=== PATIENT | male | born 1960 | race Caucasian/White ===

== ENCOUNTER 2021-03-15 09:38 | Inpatient (IN) | payer MEDICAID, SELFPAY ==
[2021-03-15] VITALS (9 sets, daily range): BP systolic 96–135; BP diastolic 55–80; PULSE 82–99; RESP 14–18; TEMP 36.3–37.3; O2SAT 95–100; BMI 27.3
--- NOTE | ~2021-03-15 | CT_ITS ---
EXAMINATION: CT ABDOMEN AND PELVIS WITH CONTRAST CLINICAL INFORMATION: Diffuse abdominal tenderness. AMS. COMPARISON: None TECHNIQUE: Multidetector volumetric images were obtained from the superior aspect of the liver through the pubic symphysis following administration 85 mL of Omnipaque 350 intravenous contrast. Sagittal and coronal reformatted images were obtained on the technologist's workstation. Oral contrast: No. This CT examination was performed using dose optimization techniques as appropriate, variously including the following: *Automated exposure control *Adjustment of mA and/or kV according to patient size (this includes techniques or standardized protocols for targeted exams where dose is matched to indication/reason for exam; i.e. extremities or head) *Use of iterative reconstruction technique DLP: 624 mGy-cm FINDINGS: LUNG BASES: There is mild ground-glass haziness seen in both lung bases. The heart size is normal. No consolidation seen. LIVER, GALLBLADDER, AND BILIARY TREE: The liver is normal in size, shape, and attenuation. No focal hepatic lesion or biliary ductal dilatation is present. The gallbladder is unremarkable with no evidence of radiopaque gallstones, gallbladder wall thickening, or obvious pericholecystic inflammatory changes. PANCREAS: The pancreas is homogeneous in density without focal lesion. The peripancreatic fat planes are preserved. SPLEEN: Unremarkable. ADRENAL GLANDS: Unremarkable. KIDNEYS AND URETERS: The kidneys are normal in size, shape, and attenuation. No hydronephrosis, hydroureter, or calculi seen. No perinephric stranding. There are bilateral nonenhancing hypodense lesions in the upper poles of both kidneys, likely small cysts. BLADDER: Unremarkable. GASTROINTESTINAL TRACT: There is scattered stool and gas seen throughout the colon without any significant distention. The small bowel loops are normal caliber. The stomach is nondistended and appears unremarkable. ABDOMINAL WALL: No significant hernia is appreciated. LYMPH NODES: Normal. VASCULAR: Unremarkable. PELVIC VISCERA: Unremarkable. OSSEOUS STRUCTURES: No lytic or sclerotic process seen. There is mild ventral spondylosis throughout the lumbar spine. No lytic process. CT/CT abdomen pelvis w con IMPRESSION: No acute intra-abdominal process seen. Bilateral renal cysts
--- NOTE | ~2021-03-15 | CT_ITS ---
PROCEDURE: CT GUIDED ASPIRATION, FINE NEEDLE, WITH IMAGE GUIDANCE CLINICAL INFORMATION: Cellular bone marrow disease. COMPARISON: None TECHNIQUE: Following explaining CT fluoroscopy-guided iliac crest bone marrow biopsy procedure, benefits and risk, a written consent was obtained. Patient was placed prone on fluoroscopy table and preliminary imaging was obtained through the pelvis. Marker was placed along the posterior skin and optimal site was selected following repeat imaging. The marked site was cleaned and draped in usual sterile manner. 1% lidocaine was injected puncture site. Through a small skin incision a 14 Uzbek needle was advanced from the skin incision to the posterior margin of posterior iliac spine. The needle was then attached to bag of her drill and the needle was drilled into the iliac bone marrow. 2 bone aspirations are performed with the DTPA and heparin separately. Subsequently a bone cutting needle was advanced coaxially and small bone marrow sample was collected and sent to lab. Post biopsy the stylet was reintroduced and the needle removed following reversing the drill. Complete hemostasis achieved at puncture site. Sterile dressing applied postprocedure. Patient tolerated procedure extremely well. Conscious sedation and patient monitoring was performed during the exam for 16 minutes of sedation time. This CT examination was performed using dose optimization techniques as appropriate, variously including the following: *Automated exposure control *Adjustment of mA and/or kV according to patient size (this includes techniques or standardized protocols for targeted exams where dose is matched to indication/reason for exam; i.e. extremities or head) *Use of iterative reconstruction technique DLP: 269 mGy-cm FINDINGS: On posterior pelvic imaging there is normal symmetric iliac crest bone marrow, sacrum and the paraspinal soft tissues. No abnormality seen in the pelvis. CT fluoroscopy-guided left posterior iliac crest biopsy performed. Initially bone marrow aspiration performed with EDTA and heparin within this syringes. CT/CT guided asp bone marrow IMPRESSION: Successful CT fluoroscopy-guided left posterior iliac crest aspiration x 2 and core biopsy x 1 performed.
--- NOTE | ~2021-03-15 | XR_ITS ---
EXAMINATION: XR CHEST CLINICAL INFORMATION: Altered mental status COMPARISON: Chest radiographs 08/15/2015 TECHNIQUE: Upright AP view of the chest was obtained. FINDINGS: The lungs are clear and there is no airspace consolidation or definite groundglass opacity. The costophrenic sulci are well-defined. The heart is normal in size. The hilar and mediastinal contours and visualized bony structures are unremarkable. XR/XR chest 1V IMPRESSION: Unremarkable examination.
--- NOTE | ~2021-03-15 | NM_ITS ---
EXAMINATION: PULMONARY PERFUSION STUDY CLINICAL INFORMATION: Elevated d-dimer. COMPARISON: No previous lung scan is available for comparison. A radiograph of the chest dated 03/15/2021 is the most recent radiograph available for comparison. TECHNIQUE: Following the intravenous injection of 3.0 mCi Tc-99m MAA, an 8-view perfusion study was performed using a gamma scintillation camera. FINDINGS: No segmental perfusion defects are present. There is minimally heterogeneous distribution of activity bilaterally. There are no focal anatomic appearing perfusion defects present. NM/NM pul perfusion IMPRESSION: Very low probability of pulmonary embolism.
--- NOTE | ~2021-03-15 | FL_ITS ---
EXAMINATION: XR LUMBAR PUNCTURE CLINICAL INFORMATION: Mental status change. COMPARISON: None. TECHNIQUE/FINDINGS: Procedure and risks and benefits including bleeding, infection and headache were discussed with the patient through an bag patcher and informed consent was obtained. The patient was positioned in the prone position. The back was prepped and draped in the usual sterile fashion. Using fluoroscopic guidance and a 22-gauge spinal needle, right interlaminar access to the CSF fluid at the L2-L3 level was obtained. Opening pressure was 13 cm of water. 7.5 mL of clear serous fluid was removed. Diagnostic specimen was sent as requested by the ordering physician. FLUOROSCOPY TIME: 0.2 minutes. DOSE AREA PRODUCT: 3 Gy-cm2. IMAGES: 1 saved fluoroscopic image. FL/FL guided lumbar puncture LP IMPRESSION: Fluoroscopy-guided lumbar puncture.
--- NOTE | ~2021-03-15 | CT_ITS ---
EXAMINATION: CT HEAD WITHOUT CONTRAST CLINICAL INFORMATION: Altered mental status COMPARISON: None TECHNIQUE: Contiguous axial imaging was performed from the skull base to vertex without intravenous administration of contrast. This CT examination was performed using dose optimization techniques as appropriate, variously including the following: *Automated exposure control *Adjustment of mA and/or kV according to patient size (this includes techniques or standardized protocols for targeted exams where dose is matched to indication/reason for exam; i.e. extremities or head) *Use of iterative reconstruction technique DLP: 607 mGy-cm FINDINGS: There is no evidence of acute intracranial hemorrhage or territorial infarction. No abnormal mass effect or midline shift is seen. Hyde to white matter differentiation is well preserved. No extra-axial fluid collections are identified. The ventricles are normal in size. There is no abnormal attenuation within the brain parenchyma. The osseous structures and soft tissues are normal. The mastoid air cells and visualized portions of the paranasal sinuses are well aerated. CT/CT head/brain wo con IMPRESSION: No acute intracranial process seen.
--- NOTE | 2021-03-15 10:25 | ECG_ITS ---
Test Reason : ALTER MENTAL Blood Pressure : / mmHG Vent. Rate : 097 BPM Atrial Rate : 097 BPM P-R Int : 142 ms QRS Dur : 096 ms QT Int : 374 ms P-R-T Axes : 039 020 024 degrees QTc Int : 474 ms Normal sinus rhythm Normal ECG No significant changes when compared with the previous EKG of 17 jan 2020 Referred By: Idalmis Curiel Electronically Signed By:YVONNE MCLAUGHLIN
--- NOTE | 2021-03-15 10:48 | ED_ITS ---
HPI - Altered Mental Status General Chief Complaint: Altered Mental Status Stated Complaint: AMS FROM MD OFFICE Time Seen by Provider: 03/15/21 10:06 Source: patient, family and EMS Mode of arrival: EMS History of Present Illness HPI narrative: 60-year-old male with a past medical history of diabetes, substance abuse, hyperkalemia, BIBA for reported increased confusion/AMS over the past 1-2 weeks, & urinary and fecal incontinence [employer] at follow-up doctor's appointment. History obtained from a friend who reports patient was recently admitted to [facility] 2 weeks ago for similar symptoms after having about 20 falls at home. Patient unable to provide history due to acute AMS MD complaint: altered mental status Onset (ago): week(s) Related Data Home Medications Medication Instructions Recorded Confirmed amitriptyline 100 mg PO BEDTIME 03/15/21 03/15/21 amlodipine 10 mg PO DAILY 03/15/21 03/15/21 carvedilol 6.25 mg PO BID 03/15/21 03/15/21 clonazepam 1 mg PO TID 03/15/21 03/15/21 fluoxetine 20 mg PO DAILY 03/15/21 03/15/21 naproxen 500 mg PO BIDPC 03/15/21 03/15/21 omeprazole 40 mg PO BID 03/15/21 03/15/21 quetiapine 300 mg PO BEDTIME 03/15/21 03/15/21 Allergies Allergy/AdvReac Type Severity Reaction Status Date / Time fish derived [FISH] Allergy Unknown UNKNOWN Unverified 08/18/20 18:30 turkey [TURKEY] Allergy Unknown UNK Unverified 08/18/20 18:30 Review of Systems Review of Systems: : + urinary incontinence/ fecal incontinence Neuro: +AMS/confusion ROS limited secondary to patient's acute mental status Yes all other systems are reviewed and are negative PMFSH Past Medical History Attestation statement: The following information was validated with the patient. Medical History (Updated 03/15/21 @ 17:26 by [facility] Olvera) Diabetes Hyperkalemia Substance abuse Social History Social History Advance Directives: No Advance Directives Information Provided: No Physical Exam Vital Signs: Vital Signs: Last Vital Signs Temp 99.1 F 03/15/21 09:55 Pulse 98 03/15/21 16:00 Resp 18 03/15/21 16:00 BP 134/78 03/15/21 16:00 Pulse Ox 96 03/15/21 16:00 Body Mass Index 27.3 Const: General: alert and awake Orientation/consciousness: oriented to person Limitations: no limitations HENMT: Head: Yes normal to inspection Ears: hearing grossly normal bilaterally General nose exam: Normal external nose present Face and sinus: Yes normal facial exam Eyes: Other: R pupil abnl General: appearance normal, both eyes and all related structures Pupils: Equal, round and reactive pupils present EOM: EOMs intact bilaterally Neck: Neck: Yes normal visual inspection and Yes no meningeal signs Resp: Effort & Inspection: normal respiratory effort Auscultation: clear to auscultation bilaterally Cardio: Rate: regular rate Heart sounds: S1 normal heart sound present and S2 normal heart sound present GI: Inspection: Yes normal to inspection Palpation (GI): Soft to palpation, Tenderness to palpation present (GI) (diffusely), no guarding and not rigid Skin: Rashes: no rashes Wounds: no wounds Neuro: Other: Confused, intermittently following commands, staring off into space, A&O x1, no signs of trauma General: oriented to person, tone normal, moves all extremities and no meningeal signs Cranial nerves: Yes Equal, round and reactive pupils present Gait exam (Neuro): Normal gait present Motor exam (neuro): Pronator motor function not present Extrem: General: Yes normal to inspection Course Course Course Narrative: *Records obtained from [facility] patient with history of po lysubstance abuse, schizophrenia, DM, was initially seen for altered mental status had multiple electrolyte abnormalities, ultimately diagnosed with HHS which was likely etiology of delirium, COLLETTE, type 2 diabetes, & transaminitis. He was evaluated by Psychiatry and deemed unable to understand his underlying conditions due to very limited IQ although was alert and oriented x3 on formal assessment. CM set up VNA services with follow-up PCP appointment which was today. XR chest 1V IMPRESSION: Unremarkable examination CT head/brain wo con IMPRESSION: No acute intracranial process seen -no leukocytosis, H&H 9.4/27.8 (10.0/27.8) on 03/13/2021, potassium 2.9 >> p.o. and IV repletion ordered -AST/ALT elevated (however improved from 03/12 labs at [facility] which was AST 76/ALT 96), initial troponin elevated at 19.8 >> 3 hour repeat ordered -UA neg tox +THC *Per nursing staff who spoke to [facility] staff member, patient called [facility] this morning and reported he took multiple medications in potential ?OD > case discussed with Dr. Baker, will obtain CT abdomen pelvis, gave intranasal Narcan without any effect. -CT without acute intra abdominal process. -1700--case discussed with IR for LP to rule out meningitis/encephalitis, patient will obtain a LP tonight. Patient admitted to hospitalist for further management. Crisis Consult added MDM - Altered Mental Status MDM Narrative Medical decision making narrative: 60-year-old male with a past medical history of diabetes, substance abuse, hyperkalemia, BIBA for reported increased confusion/AMS over the past 1-2 weeks, & urinary and fecal incontinence [employer] at follow-up doctor's appointment. On exam VSS, NAD, A&O x1, acutely confused/altered unable to provide history vs ?psychotic. Concern for encephalopathy vs substance abuse vs metabolic/infectious etiology vs psychosis. Lower concern for meningitis/ICH or CVA with subacute history Records requested from [facility] Plan: EKG, labs, UA, CXR, head CT, IVF, reassess Medical Records Attestation: I reviewed the patient's medical records. Lab Data Attestation: I reviewed the patient's lab results. Result diagrams: 03/15/21 12:50 03/15/21 12:50 Labs: Lab Results 03/15/21 03/15/21 03/15/21 Range/Units 12:50 12:50 12:50 WBC (4.8-10.8) X10*3/uL RBC (4.60-5.80) X10*6/uL Hgb (14.0-18.0) g/dl Hct (42-52) % MCV (80-98) fL MCH (27.0-33.0) pg MCHC (31.0-36.0) g/dl RDW (11.0-16.0) % Plt Count (160-400) X10*3/uL MPV (9.4-12.4) fL Immature Gran % (Auto) (0.0-0.4) % Neut % (Auto) (45-73) % Lymph % (Auto) (20-40) % Winn % (Auto) (2-11) % Eos % (Auto) (0-4) % Baso % (Auto) (0-2) % Lymph # (Auto) (1.2-4.9) X10*3/uL Winn # (Auto) (0.1-1.2) X10*3/uL Eos # (Auto) (0.0-0.4) X10*3/uL Baso # (Auto) (0.0-0.2) X10*3/uL Abs Immat Gran (auto) (0.00-0.03) X10*3/uL Absolute Neuts (auto) (2.0-8.3) X10*3/uL Absolute Nucleated RBC (0.0-0.012) X10*3/uL Nucleated RBC % (auto) (0.0-0.2) /100WBC PT (10.8-13.0) SEC INR (0.9-1.1) APTT (24.1-38.0) SEC Sodium (135-145) mmol/L Potassium (3.3-5.1) mmol/L Chloride (96-108) mmol/L Carbon Dioxide (22-29) mmol/L Anion Gap (12-20) BUN (9-16) mg/dL Creatinine (0.5-1.4) mg/dL Estim Creat Clear Calc Estimated GFR Random Glucose (60-115) mg/dL Lactic Acid (0.5-2.0) mmol/L Calcium (8.4-10.2) mg/dL Magnesium (1.6-2.6) mg/dL Total Bilirubin (0.0-1.0) mg/dL Direct Bilirubin (0.0-0.5) mg/dL AST (5-37) U/L ALT (0-40) U/L Alkaline Phosphatase (39-117) U/L Ammonia 36 (13-55) umol/L Troponin I High Sens (<3.5-35.0) ng/L B-Natriuretic Peptide (<100) pg/mL Total Protein (6.5-8.0) g/dL Albumin (3.5-5.0) g/dL Lipase (8-78) U/L Urine Color Urine Appearance Urine pH (5.0-8.0) Ur Specific Hettinger (1.005-1.025) Urine Protein (NEG-TRACE) MG/DL Urine Glucose (UA) (NEG) MG/DL Urine Ketones (NEG) MG/DL Urine Blood (NEG) Urine Nitrite (NEG) Ur Leukocyte Esterase (NEG) Urine RBC (0) /HPF Urine WBC (0-4) /HPF Ur Squamous Epith Cells /LPF Ur Renal Epithelial Cell /LPF Urine Bacteria /LPF Urine Mucus /LPF Salicylates < 5.0 L (15-30) mg/dL Urine Opiates Screen (Not Detect) Acetaminophen < 1 (<30) mcg/mL Ur Barbiturates Screen (Not Detect) Ur Phencyclidine Scrn (Not Detect) Ur Amphetamines Screen (Not Detect) U Benzodiazepines Scrn (Not Detect) Urine Cocaine Screen (Not Detect) U Marijuana (THC) Screen (Not Detect) Ethyl Alcohol mg/dL COVID-19 (ZA) Negative (Negative) COVID-19 Clin Com See Note 03/15/21 03/15/21 03/15/21 Range/Units 12:50 12:50 12:50 WBC 10.6 (4.8-10.8) X10*3/uL RBC 2.88 L (4.60-5.80) X10*6/uL Hgb 9.4 L (14.0-18.0) g/dl Hct 27.8 L (42-52) % MCV 96.5 (80-98) fL MCH 32.6 (27.0-33.0) pg MCHC 33.8 (31.0-36.0) g/dl RDW 13.6 (11.0-16.0) % Plt Count 351 (160-400) X10*3/uL MPV 8.8 L (9.4-12.4) fL Immature Gran % (Auto) 1.8 H (0.0-0.4) % Neut % (Auto) 71.2 (45-73) % Lymph % (Auto) 17.2 L (20-40) % Winn % (Auto) 8.7 (2-11) % Eos % (Auto) 0.7 (0-4) % Baso % (Auto) 0.4 (0-2) % Lymph # (Auto) 1.8 (1.2-4.9) X10*3/uL Winn # (Auto) 0.9 (0.1-1.2) X10*3/uL Eos # (Auto) 0.1 (0.0-0.4) X10*3/uL Baso # (Auto) 0.0 (0.0-0.2) X10*3/uL Abs Immat Gran (auto) 0.19 H (0.00-0.03) X10*3/uL Absolute Neuts (auto) 7.6 (2.0-8.3) X10*3/uL Absolute Nucleated RBC 0.000 (0.0-0.012) X10*3/uL Nucleated RBC % (auto) 0.0 (0.0-0.2) /100WBC PT (10.8-13.0) SEC INR (0.9-1.1) APTT (24.1-38.0) SEC Sodium 139 (135-145) mmol/L Potassium 2.9 L (3.3-5.1) mmol/L Chloride 102 (96-108) mmol/L Carbon Dioxide 27 (22-29) mmol/L Anion Gap 13 (12-20) BUN 11 (9-16) mg/dL Creatinine 0.85 (0.5-1.4) mg/dL Estim Creat Clear Calc 88.2 Estimated GFR > 60 Random Glucose 185 H (60-115) mg/dL Lactic Acid (0.5-2.0) mmol/L Calcium 8.8 (8.4-10.2) mg/dL Magnesium 1.7 (1.6-2.6) mg/dL Total Bilirubin 2.3 H (0.0-1.0) mg/dL Direct Bilirubin 0.9 H (0.0-0.5) mg/dL AST 47 H (5-37) U/L ALT 76 H (0-40) U/L Alkaline Phosphatase 92 (39-117) U/L Ammonia (13-55) umol/L Troponin I High Sens 19.8 (<3.5-35.0) ng/L B-Natriuretic Peptide 197 H (<100) pg/mL Total Protein 6.6 (6.5-8.0) g/dL Albumin 3.6 (3.5-5.0) g/dL Lipase 25 (8-78) U/L Urine Color Urine Appearance Urine pH (5.0-8.0) Ur Specific Hettinger (1.005-1.025) Urine Protein (NEG-TRACE) MG/DL Urine Glucose (UA) (NEG) MG/DL Urine Ketones (NEG) MG/DL Urine Blood (NEG) Urine Nitrite (NEG) Ur Leukocyte Esterase (NEG) Urine RBC (0) /HPF Urine WBC (0-4) /HPF Ur Squamous Epith Cells /LPF Ur Renal Epithelial Cell /LPF Urine Bacteria /LPF Urine Mucus /LPF Salicylates (15-30) mg/dL Urine Opiates Screen (Not Detect) Acetaminophen (<30) mcg/mL Ur Barbiturates Screen (Not Detect) Ur Phencyclidine Scrn (Not Detect) Ur Amphetamines Screen (Not Detect) U Benzodiazepines Scrn (Not Detect) Urine Cocaine Screen (Not Detect) U Marijuana (THC) Screen (Not Detect) Ethyl Alcohol mg/dL COVID-19 (ZA) (Negative) COVID-19 Clin Com 03/15/21 03/15/21 03/15/21 Range/Units 12:50 12:50 12:50 WBC (4.8-10.8) X10*3/uL RBC (4.60-5.80) X10*6/uL Hgb (14.0-18.0) g/dl Hct (42-52) % MCV (80-98) fL MCH (27.0-33.0) pg MCHC (31.0-36.0) g/dl RDW (11.0-16.0) % Plt Count (160-400) X10*3/uL MPV (9.4-12.4) fL Immature Gran % (Auto) (0.0-0.4) % Neut % (Auto) (45-73) % Lymph % (Auto) (20-40) % Winn % (Auto) (2-11) % Eos % (Auto) (0-4) % Baso % (Auto) (0-2) % Lymph # (Auto) (1.2-4.9) X10*3/uL Winn # (Auto) (0.1-1.2) X10*3/uL Eos # (Auto) (0.0-0.4) X10*3/uL Baso # (Auto) (0.0-0.2) X10*3/uL Abs Immat Gran (auto) (0.00-0.03) X10*3/uL Absolute Neuts (auto) (2.0-8.3) X10*3/uL Absolute Nucleated RBC (0.0-0.012) X10*3/uL Nucleated RBC % (auto) (0.0-0.2) /100WBC PT 11.8 (10.8-13.0) SEC INR 1.0 (0.9-1.1) APTT 34.8 (24.1-38.0) SEC Sodium (135-145) mmol/L Potassium (3.3-5.1) mmol/L Chloride (96-108) mmol/L Carbon Dioxide (22-29) mmol/L Anion Gap (12-20) BUN (9-16) mg/dL Creatinine (0.5-1.4) mg/dL Estim Creat Clear Calc Estimated GFR Random Glucose (60-115) mg/dL Lactic Acid 1.5 (0.5-2.0) mmol/L Calcium (8.4-10.2) mg/dL Magnesium (1.6-2.6) mg/dL Total Bilirubin (0.0-1.0) mg/dL Direct Bilirubin (0.0-0.5) mg/dL AST (5-37) U/L ALT (0-40) U/L Alkaline Phosphatase (39-117) U/L Ammonia (13-55) umol/L Troponin I High Sens (<3.5-35.0) ng/L B-Natriuretic Peptide Cancelled (<100) pg/mL Total Protein (6.5-8.0) g/dL Albumin (3.5-5.0) g/dL Lipase (8-78) U/L Urine Color Urine Appearance Urine pH (5.0-8.0) Ur Specific Hettinger (1.005-1.025) Urine Protein (NEG-TRACE) MG/DL Urine Glucose (UA) (NEG) MG/DL Urine Ketones (NEG) MG/DL Urine Blood (NEG) Urine Nitrite (NEG) Ur Leukocyte Esterase (NEG) Urine RBC (0) /HPF Urine WBC (0-4) /HPF Ur Squamous Epith Cells /LPF Ur Renal Epithelial Cell /LPF Urine Bacteria /LPF Urine Mucus /LPF Salicylates (15-30) mg/dL Urine Opiates Screen (Not Detect) Acetaminophen (<30) mcg/mL Ur Barbiturates Screen (Not Detect) Ur Phencyclidine Scrn (Not Detect) Ur Amphetamines Screen (Not Detect) U Benzodiazepines Scrn (Not Detect) Urine Cocaine Screen (Not Detect) U Marijuana (THC) Screen (Not Detect) Ethyl Alcohol mg/dL COVID-19 (ZA) (Negative) COVID-19 Clin Com 03/15/21 03/15/21 03/15/21 Range/Units 12:50 12:53 12:53 WBC (4.8-10.8) X10*3/uL RBC (4.60-5.80) X10*6/uL Hgb (14.0-18.0) g/dl Hct (42-52) % MCV (80-98) fL MCH (27.0-33.0) pg MCHC (31.0-36.0) g/dl RDW (11.0-16.0) % Plt Count (160-400) X10*3/uL MPV (9.4-12.4) fL Immature Gran % (Auto) (0.0-0.4) % Neut % (Auto) (45-73) % Lymph % (Auto) (20-40) % Winn % (Auto) (2-11) % Eos % (Auto) (0-4) % Baso % (Auto) (0-2) % Lymph # (Auto) (1.2-4.9) X10*3/uL Winn # (Auto) (0.1-1.2) X10*3/uL Eos # (Auto) (0.0-0.4) X10*3/uL Baso # (Auto) (0.0-0.2) X10*3/uL Abs Immat Gran (auto) (0.00-0.03) X10*3/uL Absolute Neuts (auto) (2.0-8.3) X10*3/uL Absolute Nucleated RBC (0.0-0.012) X10*3/uL Nucleated RBC % (auto) (0.0-0.2) /100WBC PT (10.8-13.0) SEC INR (0.9-1.1) APTT (24.1-38.0) SEC Sodium (135-145) mmol/L Potassium (3.3-5.1) mmol/L Chloride (96-108) mmol/L Carbon Dioxide (22-29) mmol/L Anion Gap (12-20) BUN (9-16) mg/dL Creatinine (0.5-1.4) mg/dL Estim Creat Clear Calc Estimated GFR Random Glucose (60-115) mg/dL Lactic Acid (0.5-2.0) mmol/L Calcium (8.4-10.2) mg/dL Magnesium (1.6-2.6) mg/dL Total Bilirubin (0.0-1.0) mg/dL Direct Bilirubin (0.0-0.5) mg/dL AST (5-37) U/L ALT (0-40) U/L Alkaline Phosphatase (39-117) U/L Ammonia (13-55) umol/L Troponin I High Sens (<3.5-35.0) ng/L B-Natriuretic Peptide (<100) pg/mL Total Protein (6.5-8.0) g/dL Albumin (3.5-5.0) g/dL Lipase (8-78) U/L Urine Color YELLOW Urine Appearance CLEAR Urine pH 7.5 (5.0-8.0) Ur Specific Hettinger 1.015 (1.005-1.025) Urine Protein NEG (NEG-TRACE) MG/DL Urine Glucose (UA) 100 H (NEG) MG/DL Urine Ketones NEG (NEG) MG/DL Urine Blood TRACE (NEG) Urine Nitrite NEG (NEG) Ur Leukocyte Esterase NEG (NEG) Urine RBC 1-4 (0) /HPF Urine WBC 0-2 (0-4) /HPF Ur Squamous Epith Cells TRACE /LPF Ur Renal Epithelial Cell TRACE /LPF Urine Bacteria NONE /LPF Urine Mucus TRACE /LPF Salicylates (15-30) mg/dL Urine Opiates Screen Not Detected (Not Detect) Acetaminophen (<30) mcg/mL Ur Barbiturates Screen Not Detected (Not Detect) Ur Phencyclidine Scrn Not Detected (Not Detect) Ur Amphetamines Screen Not Detected (Not Detect) U Benzodiazepines Scrn Not Detected (Not Detect) Urine Cocaine Screen Not Detected (Not Detect) U Marijuana (THC) Screen POSITIVE H (Not Detect) Ethyl Alcohol < 10 mg/dL COVID-19 (ZA) (Negative) COVID-19 Clin Com Discharge Plan Discharge Clinical Impression: Altered mental status, Encephalopathy Patient Disposition: Admitted As Inpatient Prescriptions: No Action carvedilol 6.25 mg Tablet 6.25 mg PO BID RF: 0 quetiapine 300 mg Tablet 300 mg PO BEDTIME RF: 0 clonazepam 1 mg Tablet 1 mg PO TID RF: 0 omeprazole 40 mg Capsule,Delayed Release(Dr/Ec) 40 mg PO BID RF: 0 amitriptyline 50 mg Tablet 100 mg PO BEDTIME RF: 0 amlodipine 10 mg Tablet 10 mg PO DAILY RF: 0 fluoxetine 20 mg Capsule 20 mg PO DAILY RF: 0 naproxen 500 mg Tablet 500 mg PO BIDPC RF: 0
[2021-03-15 13:01] LABS: Basophils Percent Auto 0.4 % (0-2); Eosinophils Absolute Auto 0.1 X10*3/uL (0.0-0.4); Eosinophils Percent Auto 0.7 % (0-4); Hematocrit 27.8 % (42-52); Hemoglobin 9.4 g/dl (14.0-18.0); Imm Gran Abs Auto 0.19 X10*3/uL (0.00-0.03); Imm Gran Pct Auto 1.8 % (0.0-0.4); Lymphocytes Absolute Auto 1.8 X10*3/uL (1.2-4.9); Lymphocytes Percent Auto 17.2 % (20-40); MANUAL DIFF FLAG NO; Mean Corpuscular HGB Conc 33.8 g/dl (31.0-36.0); Mean Corpuscular Hemoglobin 32.6 pg (27.0-33.0); Mean Corpuscular Volume 96.5 fL (80-98); Mean Platelet Volume 8.8 fL (9.4-12.4); Monocytes Absolute Auto 0.9 X10*3/uL (0.1-1.2); Monocytes Percent Auto 8.7 % (2-11); Neutrophils Absolute Auto 7.6 X10*3/uL (2.0-8.3); Neutrophils Percent Auto 71.2 % (45-73); Platelet Count 351 X10*3/uL (160-400); Red Blood Count 2.88 X10*6/uL (4.60-5.80); Red Cell Distribution Width 13.6 % (11.0-16.0); White Blood Count 10.6 X10*3/uL (4.8-10.8)
[2021-03-15] MEDS: 0.9 % Sodium Chloride 1,000 ML 999 ML IVCONT (13:02)
[2021-03-15 13:04] LABS: Prothrombin Time 11.8 SEC (10.8-13.0)
[2021-03-15 13:06] LABS: Partial Thromboplastin Time 34.8 SEC (24.1-38.0)
[2021-03-15 13:24] LABS: Ammonia 36 umol/L (13-55); COVID-19 Test Negative (Negative)
[2021-03-15 13:27] LABS: Lactic Acid 1.5 mmol/L (0.5-2.0)
[2021-03-15 13:28] LABS: Ethanol < 10 mg/dL
[2021-03-15 13:29] LABS: Glucose Urine UA 100 MG/DL (NEG); Leukocyte Esterase Urine NEG (NEG); Nitrite Urine NEG (NEG); PH 7.5 (5.0-8.0); Specific Gravity - Urine 1.015 (1.005-1.025); Urine Blood TRACE (NEG); Urine Ketones NEG (NEG); Urine Protein NEG (NEG-TRACE)
[2021-03-15 13:31] LABS: Acetaminophen LAB < 1 mcg/mL (<30); Salicylate < 5.0 mg/dL (15-30)
[2021-03-15 13:32] LABS: Appearance Urine CLEAR; Color Urine YELLOW
[2021-03-15 13:36] LABS: B Type Natriuretic Peptide 197 pg/mL (<100); Troponin-I High Sensitivity 19.8 ng/L (<3.5-35.0)
[2021-03-15 13:44] LABS: Amphetamine Screen Urine Not Detected (Not Detect); Barbiturates, Urine Not Detected (Not Detect); Benzodiazepines Screen Urine Not Detected (Not Detect); Cannabinoid Screen Urine POSITIVE (Not Detect); Cocaine Screen Urine Not Detected (Not Detect); Mucus Urine TRACE /LPF; Opiate Screen Urine Not Detected (Not Detect); Phencyclidine Screen Urine Not Detected (Not Detect); Renal Epithelial Cells Urine TRACE /LPF; Squamous Epithelial Cell Urine TRACE /LPF; WBC Urine 0-2 /HPF (0-4)
[2021-03-15 13:50] LABS: Alanine Aminotransferase 76 U/L (0-40); Albumin Level 3.6 g/dL (3.5-5.0); Alkaline Phosphatase 92 U/L (39-117); Anion Gap 13 (12-20); Aspartate Amino Transferase 47 U/L (5-37); Bilirubin Direct 0.9 mg/dL (0.0-0.5); Bilirubin Total 2.3 mg/dL (0.0-1.0); Blood Urea Nitrogen 11 mg/dL (9-16); Calcium 8.8 mg/dL (8.4-10.2); Carbon Dioxide 27 mmol/L (22-29); Chloride 102 mmol/L (96-108); Creatinine Clr Calc Pharmacy 88.2; Estimated Glomerular Filt Rate > 60; Glucose Random 185 mg/dL (60-115); Lipase 25 U/L (8-78); Magnesium 1.7 mg/dL (1.6-2.6); Potassium 2.9 mmol/L (3.3-5.1); Sodium 139 mmol/L (135-145); Total Protein 6.6 g/dL (6.5-8.0)
[2021-03-15] MEDS: iohexoL 350 MG/ML 100 ML INFUS..BTL IV (15:18)
[2021-03-15] MEDS: Naloxone HCl 2 MG/2 ML SYRINGE IVPUSH (15:24)
[2021-03-15] MEDS: Potassium Chloride/H20 10 MEQ/100 ML PIGGYBACK 100 MEQ IV (15:29)
[2021-03-15] MEDS: Potassium Chloride Packet 20 MEQ PACKET 40 MEQ PO (15:29)
--- NOTE | 2021-03-15 15:29 | PC.NURSE ---
report taken from dayshift rn. Per rn patient [facility] called and reported the patient took an unknown substance and was brought to the hospital by friend for AMS. Pt a and ox 2 at this time. medicated with narcan iv as an attempt to improve mental status by provider. pt given potassium. montioring at this itme.
--- NOTE | 2021-03-15 15:49 | PC.NURSE ---
RANJEET FROM [facility] CONTACTED TO DO CHART REVIEW AND HELP ESTABLISH BASELINE BEHAVIORS.
--- NOTE | 2021-03-15 16:42 | PC.NURSE ---
This rfp writer spoke to [facility] staff Rob DING [phone] and [facility] [phone] Per [facility] staff, pt was refered to them last june and has no severe SI or attempts since then. Reportedly baseline is a and o x 3. pt is increasingly distracted and during last [facility] assessment, normal affect with some though blocking noted. Pt contacted [facility] and stated he drank poision. At baseline pt exhibits severe SI and has had mulitple attempts in past. Pt normally administereds medications to self, so there is a potentail for access. No recent history regarding SI attempts, pt has had increased thurst and was diagnosed with diabetes at [facility]. pt was brought in to provider's office by friend and was transported by ems from there. Pt has had increased confusion per [facility].
--- NOTE | 2021-03-15 17:13 | PC.NURSE ---
pt to [facility] now. per [facility]p idalia no need for traffic monitor specialist.
[2021-03-15 17:42] LABS: Potassium Urine Random 9.6 mmol/L
[2021-03-15 17:57] LABS: Troponin-I High Sensitivity 33.8 ng/L (<3.5-35.0)
--- NOTE | 2021-03-15 18:04 | HO.RADPN ---
RADIOLOGY Narrative Narrative: LP performed using 22 g spinal needle. Opening pressure 13 cm h2o. 7 ml clear csf fluid removed.
[2021-03-15 18:08] LABS: Osmolality Urine 289 mosm/kg (373-1093); Osmolality, Serum 288 mosm/kg (281-305)
[2021-03-15 18:43] LABS: Glucose, Whole Blood 154 mg/dL (60-115)
--- NOTE | 2021-03-15 19:43 | PC.NURSE ---
PT MOVED TO [facility] 7 FROM [facility], REPORT TAKEN FROM PAXTON DING. FIRST CONTACT WITH PT. HOSPITALIST AT BEDSIDE FOR CONSULT. PT A&Ox3 ANSWERING QUESTIONS APPROPRIATELY. REPORTS FORGETFULx2 DAYS, HEADACHE, FEVER, SOB, BODYACHES. DENIES CP AT THIS TIME. LP RESULTS PENDING.
[2021-03-15 20:06] LABS: Appearance CSF CLEAR; Color CSF COLORLESS
[2021-03-15 20:07] LABS: CSF Monos 60 %; CSF Other Cells % 0 %; CSF Tube # 4; Lymphocytes CSF 40 %; Neutrophils CSF 0 %; Red Blood Cell CSF 10 MM*3; White Blood Cell CSF 3 MM*3
--- NOTE | 2021-03-15 20:45 | PM.IMHP ---
History of Present Illness Date of Service: 03/15/21 Chief Complaint: Confusion 60-year-old Nepali-speaking male with past medical history of hypertension, GERD, anxiety, depression presented to the hospital with a chief complaint of confusion. Patient is a poor historian. Spoke with the ER staff, patient's family and also reviewed the records. Reportedly patient had infusion-refers to memory impairment as per the family; and has been having unsteady gait, dizzy evening while he was walking he was leaning on to the family member but did not have any fall. Patient also had nausea vomiting and diarrhea. Patient mentioned that he has pain all over his body. Review of systems: Given poor historian unable to obtain clear review of systems, patient mentions yes to most of the questions asked. ER course: ER team mentioned the patient was initially confused, workup negative for any infection, CT head negative, lumbar puncture was negative. No meningeal signs. Admitted to the hospital for further management. [facility] Medical History (Updated 03/23/21 @ 15:57 by TU Garcia) Diabetes Hyperkalemia Hypertension Schizo affective schizophrenia Substance abuse Social History Household Members: None Housing: Apartment Smoking Status: Never smoker Substance Use Type: Marijuana service: No Current occupational status: unemployed Meds Allergies Allergy/AdvReac Type Severity Reaction Status Date / Time fish derived [FISH] Allergy Unknown UNKNOWN Unverified 08/18/20 18:30 turkey [TURKEY] Allergy Unknown UNK Unverified 08/18/20 18:30 lisinopril AdvReac Swelling Verified 03/16/21 01:39 Active Medications: Current Medications Generic Name Dose Route Start Last Admin Trade Name Naima PRN Reason Stop Dose Admin Acetaminophen 650 mg 03/15/21 20:42 Acetaminophen 325 Mg Tablet PO Q6H PRN Pain, Mild (Pain Scale 1-3) Sodium Chloride 1,000 mls @ 100 mls/hr 03/15/21 20:45 Ns IVCONT .Q10H [facility] Pharmacy Consult 1 each 03/15/21 10:24 Consult Rx Perform Med Rec MISCELLANE ONCE PRN Consult order Sodium Chloride 3 ml 03/16/21 00:00 0.9 % Sodium Chloride Flush 3 Ml Syringe IVFLUSH QSHIFT [facility] Home Medications Medication Instructions Recorded Confirmed Last Taken Type amitriptyline 100 mg PO BEDTIME 03/15/21 03/15/21 Unknown History amlodipine 10 mg PO DAILY 03/15/21 03/15/21 Unknown History carvedilol 6.25 mg PO BID 03/15/21 03/15/21 Unknown History clonazepam 1 mg PO TID 03/15/21 03/15/21 Unknown History fluoxetine 20 mg PO DAILY 03/15/21 03/15/21 Unknown History omeprazole 40 mg PO BID 03/15/21 03/15/21 Unknown History Physical Exam Vital Signs and Narrative: Vital Signs: Last Vital Signs Temp 97.4 F 03/15/21 18:33 Pulse 82 03/15/21 19:47 Resp 16 03/15/21 19:47 BP 115/73 03/15/21 18:59 Pulse Ox 100 03/15/21 19:47 Body Mass Index 27.3 Gen: Appears be in no acute distress HEENT: NCAT, Moist mucosa. Pulmonary: Vesicular breath sounds, fair air entry CVS: Normal S1-S2 Abdomen: BS+, Soft, Nontender Extremities: Warm well perfused Neuro: Alert and awake. Grossly nonfocal; oriented times 2-3 Results Labs CBC and Chem 7: 03/23/21 06:36 03/23/21 06:36 Labs: Laboratory Results - last 24 hr 03/15/21 03/15/21 03/15/21 12:50 12:50 12:50 MCV MCH MCHC RDW Plt Count MPV Immature Gran % (Auto) Neut % (Auto) Lymph % (Auto) Hunt % (Auto) Eos % (Auto) Baso % (Auto) Lymph # (Auto) Hunt # (Auto) Eos # (Auto) Baso # (Auto) Abs Immat Gran (auto) Absolute Neuts (auto) Absolute Nucleated RBC Nucleated RBC % (auto) PT INR APTT Anion Gap Estim Creat Clear Calc Estimated GFR POC Glucose Random Glucose Osmolality Lactic Acid Calcium Magnesium Total Bilirubin Direct Bilirubin AST ALT Alkaline Phosphatase Ammonia 36 Troponin I High Sens B-Natriuretic Peptide Total Protein Albumin Lipase Urine Color Urine Appearance Urine pH Ur Specific Bradford Urine Protein Urine Glucose (UA) Urine Ketones Urine Blood Urine Nitrite Ur Leukocyte Esterase Urine RBC Urine WBC Ur Squamous Epith Cells Ur Renal Epithelial Cell Urine Bacteria Urine Mucus Urine Osmolality Ur Random Sodium Ur Random Potassium Ur Random Chloride CSF Tube Number CSF Volume CSF Appearance CSF Color CSF WBC CSF RBC CSF Neutrophils CSF Lymphocytes CSF Monocytes % CSF Other Cells % Salicylates < 5.0 L Urine Opiates Screen Acetaminophen < 1 Ur Barbiturates Screen Ur Phencyclidine Scrn Ur Amphetamines Screen U Benzodiazepines Scrn Urine Cocaine Screen U Marijuana (THC) Screen Ethyl Alcohol COVID-19 (ZA) Negative COVID-19 Clin Com See Note 03/15/21 03/15/21 03/15/21 12:50 12:50 12:50 MCV 96.5 MCH 32.6 MCHC 33.8 RDW 13.6 Plt Count 351 MPV 8.8 L Immature Gran % (Auto) 1.8 H Neut % (Auto) 71.2 Lymph % (Auto) 17.2 L Hunt % (Auto) 8.7 Eos % (Auto) 0.7 Baso % (Auto) 0.4 Lymph # (Auto) 1.8 Hunt # (Auto) 0.9 Eos # (Auto) 0.1 Baso # (Auto) 0.0 Abs Immat Gran (auto) 0.19 H Absolute Neuts (auto) 7.6 Absolute Nucleated RBC 0.000 Nucleated RBC % (auto) 0.0 PT INR APTT Anion Gap 13 Estim Creat Clear Calc 88.2 Estimated GFR > 60 POC Glucose Random Glucose 185 H Osmolality Lactic Acid Calcium 8.8 Magnesium 1.7 Total Bilirubin 2.3 H Direct Bilirubin 0.9 H AST 47 H ALT 76 H Alkaline Phosphatase 92 Ammonia Troponin I High Sens 19.8 B-Natriuretic Peptide 197 H Total Protein 6.6 Albumin 3.6 Lipase 25 Urine Color Urine Appearance Urine pH Ur Specific Bradford Urine Protein Urine Glucose (UA) Urine Ketones Urine Blood Urine Nitrite Ur Leukocyte Esterase Urine RBC Urine WBC Ur Squamous Epith Cells Ur Renal Epithelial Cell Urine Bacteria Urine Mucus Urine Osmolality Ur Random Sodium Ur Random Potassium Ur Random Chloride CSF Tube Number CSF Volume CSF Appearance CSF Color CSF WBC CSF RBC CSF Neutrophils CSF Lymphocytes CSF Monocytes % CSF Other Cells % Salicylates Urine Opiates Screen Acetaminophen Ur Barbiturates Screen Ur Phencyclidine Scrn Ur Amphetamines Screen U Benzodiazepines Scrn Urine Cocaine Screen U Marijuana (THC) Screen Ethyl Alcohol COVID-19 (ZA) COVID-19 Clin Com 03/15/21 03/15/21 03/15/21 12:50 12:50 12:50 MCV MCH MCHC RDW Plt Count MPV Immature Gran % (Auto) Neut % (Auto) Lymph % (Auto) Hunt % (Auto) Eos % (Auto) Baso % (Auto) Lymph # (Auto) Hunt # (Auto) Eos # (Auto) Baso # (Auto) Abs Immat Gran (auto) Absolute Neuts (auto) Absolute Nucleated RBC Nucleated RBC % (auto) PT 11.8 INR 1.0 APTT 34.8 Anion Gap Estim Creat Clear Calc Estimated GFR POC Glucose Random Glucose Osmolality Lactic Acid 1.5 Calcium Magnesium Total Bilirubin Direct Bilirubin AST ALT Alkaline Phosphatase Ammonia Troponin I High Sens B-Natriuretic Peptide Cancelled Total Protein Albumin Lipase Urine Color Urine Appearance Urine pH Ur Specific Bradford Urine Protein Urine Glucose (UA) Urine Ketones Urine Blood Urine Nitrite Ur Leukocyte Esterase Urine RBC Urine WBC Ur Squamous Epith Cells Ur Renal Epithelial Cell Urine Bacteria Urine Mucus Urine Osmolality Ur Random Sodium Ur Random Potassium Ur Random Chloride CSF Tube Number CSF Volume CSF Appearance CSF Color CSF WBC CSF RBC CSF Neutrophils CSF Lymphocytes CSF Monocytes % CSF Other Cells % Salicylates Urine Opiates Screen Acetaminophen Ur Barbiturates Screen Ur Phencyclidine Scrn Ur Amphetamines Screen U Benzodiazepines Scrn Urine Cocaine Screen U Marijuana (THC) Screen Ethyl Alcohol COVID-19 (ZA) COVID-19 Clin Com 03/15/21 03/15/21 03/15/21 12:50 12:50 12:50 MCV MCH MCHC RDW Plt Count MPV Immature Gran % (Auto) Neut % (Auto) Lymph % (Auto) Hunt % (Auto) Eos % (Auto) Baso % (Auto) Lymph # (Auto) Hunt # (Auto) Eos # (Auto) Baso # (Auto) Abs Immat Gran (auto) Absolute Neuts (auto) Absolute Nucleated RBC Nucleated RBC % (auto) PT INR APTT Anion Gap Estim Creat Clear Calc Estimated GFR POC Glucose Random Glucose Osmolality 288 Lactic Acid Calcium Magnesium Total Bilirubin Direct Bilirubin AST ALT Alkaline Phosphatase Ammonia Troponin I High Sens B-Natriuretic Peptide Total Protein Albumin Lipase Urine Color Urine Appearance Urine pH Ur Specific Bradford Urine Protein Urine Glucose (UA) Urine Ketones Urine Blood Urine Nitrite Ur Leukocyte Esterase Urine RBC Urine WBC Ur Squamous Epith Cells Ur Renal Epithelial Cell Urine Bacteria Urine Mucus Urine Osmolality Ur Random Sodium 102.0 Ur Random Potassium 9.6 Ur Random Chloride 95.0 CSF Tube Number CSF Volume CSF Appearance CSF Color CSF WBC CSF RBC CSF Neutrophils CSF Lymphocytes CSF Monocytes % CSF Other Cells % Salicylates Urine Opiates Screen Acetaminophen Ur Barbiturates Screen Ur Phencyclidine Scrn Ur Amphetamines Screen U Benzodiazepines Scrn Urine Cocaine Screen U Marijuana (THC) Screen Ethyl Alcohol < 10 COVID-19 (ZA) COVID-19 [employer] Com 03/15/21 03/15/21 03/15/21 12:50 12:53 12:53 MCV MCH MCHC RDW Plt Count MPV Immature Gran % (Auto) Neut % (Auto) Lymph % (Auto) Hunt % (Auto) Eos % (Auto) Baso % (Auto) Lymph # (Auto) Hunt # (Auto) Eos # (Auto) Baso # (Auto) Abs Immat Gran (auto) Absolute Neuts (auto) Absolute Nucleated RBC Nucleated RBC % (auto) PT INR APTT Anion Gap Estim Creat Clear Calc Estimated GFR POC Glucose Random Glucose Osmolality Lactic Acid Calcium Magnesium Total Bilirubin Direct Bilirubin AST ALT Alkaline Phosphatase Ammonia Troponin I High Sens B-Natriuretic Peptide Total Protein Albumin Lipase Urine Color YELLOW Urine Appearance CLEAR Urine pH 7.5 Ur Specific Bradford 1.015 Urine Protein NEG Urine Glucose (UA) 100 H Urine Ketones NEG Urine Blood TRACE Urine Nitrite NEG Ur Leukocyte Esterase NEG Urine RBC 1-4 Urine WBC 0-2 Ur Squamous Epith Cells TRACE Ur Renal Epithelial Cell TRACE Urine Bacteria NONE Urine Mucus TRACE Urine Osmolality 289 L Ur Random Sodium Ur Random Potassium Ur Random Chloride CSF Tube Number CSF Volume CSF Appearance CSF Color CSF WBC CSF RBC CSF Neutrophils CSF Lymphocytes CSF Monocytes % CSF Other Cells % Salicylates Urine Opiates Screen Not Detected Acetaminophen Ur Barbiturates Screen Not Detected Ur Phencyclidine Scrn Not Detected Ur Amphetamines Screen Not Detected U Benzodiazepines Scrn Not Detected Urine Cocaine Screen Not Detected U Marijuana (THC) Screen POSITIVE H Ethyl Alcohol COVID-19 (ZA) COVID-19 [employer] Com 03/15/21 03/15/21 03/15/21 17:09 17:44 18:40 MCV MCH MCHC RDW Plt Count MPV Immature Gran % (Auto) Neut % (Auto) Lymph % (Auto) Hunt % (Auto) Eos % (Auto) Baso % (Auto) Lymph # (Auto) Hunt # (Auto) Eos # (Auto) Baso # (Auto) Abs Immat Gran (auto) Absolute Neuts (auto) Absolute Nucleated RBC Nucleated RBC % (auto) PT INR APTT Anion Gap Estim Creat Clear Calc Estimated GFR POC Glucose 154 H Random Glucose Osmolality Lactic Acid Calcium Magnesium Total Bilirubin Direct Bilirubin AST ALT Alkaline Phosphatase Ammonia Troponin I High Sens 33.8 D B-Natriuretic Peptide Total Protein Albumin Lipase Urine Color Urine Appearance Urine pH Ur Specific Bradford Urine Protein Urine Glucose (UA) Urine Ketones Urine Blood Urine Nitrite Ur Leukocyte Esterase Urine RBC Urine WBC Ur Squamous Epith Cells Ur Renal Epithelial Cell Urine Bacteria Urine Mucus Urine Osmolality Ur Random Sodium Ur Random Potassium Ur Random Chloride CSF Tube Number 4 CSF Volume 2.0 CSF Appearance CLEAR CSF Color COLORLESS CSF WBC 3 CSF RBC 10 CSF Neutrophils 0 CSF Lymphocytes 40 CSF Monocytes % 60 CSF Other Cells % 0 Salicylates Urine Opiates Screen Acetaminophen Ur Barbiturates Screen Ur Phencyclidine Scrn Ur Amphetamines Screen U Benzodiazepines Scrn Urine Cocaine Screen U Marijuana (THC) Screen Ethyl Alcohol COVID-19 (ZA) COVID-19 Clin Com Imaging Radiologist's Impressions: Impressions Head CT 03/15/21 10:24 IMPRESSION: No acute intracranial process seen. Chest X-Ray 03/15/21 10:25 IMPRESSION: Unremarkable examination. Abdomen/Pelvis CT 03/15/21 14:28 IMPRESSION: No acute intra-abdominal process seen. Bilateral renal cysts Assessment and Plan (1) Altered mental status: Status: Acute 60-year-old male with a past medical history of hypertension, anxiety, depression, GERD presented to the hospital with a chief complaint of confusion. Confusion: Likely toxic metabolic encephalopathy. But currently no obvious signs of infection noticed. LP was also negative. No meningeal signs. Exam grossly nonfocal. Per family patient had recurrent falls and has frequent memory impairments and also on study. Will consult Neurology for further recommendations. Will obtain folate and B12, TSH and RPR. Fall precautions Patient mental status improving. Will obtain orthostatic vitals. Patient is on high dose of Seroquel 300 mg at night-question contributing to the patient's symptoms. Will reduce the dose of Seroquel to 50mg and will defer to the a.m. team to finally else was stopping eventually. History of hypertension: Blood pressure on the soft side. Will hold home antihypertensives for now. History of anxiety/depression: Continue home medication clonazepam, amitriptyline, Floxin. Diabetes insulin sliding scale DVT prophylaxis: SCD boots Code status: Full code
[2021-03-16] VITALS (11 sets, daily range): BP systolic 95–136; BP diastolic 46–107; PULSE 82–109; RESP 14–20; TEMP 36.2–37.2; O2SAT 96–100
[2021-03-16 02:12] LABS: Glucose, Whole Blood 262 mg/dL (60-115)
[2021-03-16] MEDS: Amitriptyline HCl 50 MG TABLET 100 MG PO ×2 (02:34→19:44)
[2021-03-16] MEDS: clonazePAM 1 MG TABLET PO ×4 (02:35→19:44)
[2021-03-16] MEDS: QUEtiapine Fumarate 50 MG TABLET PO ×2 (02:36→19:44)
[2021-03-16] MEDS: 0.9 % Sodium Chloride Flush 3 ML SYRINGE IVFLUSH (02:36)
[2021-03-16] MEDS: 0.9 % Sodium Chloride 1,000 ML 100 ML IVCONT ×2 (02:43→15:53)
[2021-03-16] MEDS: Omeprazole 40 MG CAPSULE.DR PO ×2 (05:55→17:09)
[2021-03-16 06:15] LABS: Glucose, Whole Blood 191 mg/dL (60-115)
[2021-03-16 08:20] LABS: MANUAL DIFF FLAG NO
[2021-03-16 08:33] LABS: Basophils Percent Auto 0.4 % (0-2); Eosinophils Absolute Auto 0.1 X10*3/uL (0.0-0.4); Eosinophils Percent Auto 1.1 % (0-4); Hematocrit 25.6 % (42-52); Hemoglobin 8.3 g/dl (14.0-18.0); Imm Gran Abs Auto 0.14 X10*3/uL (0.00-0.03); Imm Gran Pct Auto 1.7 % (0.0-0.4); Lymphocytes Absolute Auto 2.1 X10*3/uL (1.2-4.9); Lymphocytes Percent Auto 24.3 % (20-40); Mean Corpuscular HGB Conc 32.4 g/dl (31.0-36.0); Mean Corpuscular Hemoglobin 32.2 pg (27.0-33.0); Mean Corpuscular Volume 99.2 fL (80-98); Mean Platelet Volume 8.6 fL (9.4-12.4); Monocytes Absolute Auto 0.8 X10*3/uL (0.1-1.2); Monocytes Percent Auto 9.8 % (2-11); NRBC Pct Auto 0.2 /100WBC (0.0-0.2); Neutrophils Absolute Auto 5.3 X10*3/uL (2.0-8.3); Neutrophils Percent Auto 62.7 % (45-73); Platelet Count 292 X10*3/uL (160-400); Red Blood Count 2.58 X10*6/uL (4.60-5.80); Red Cell Distribution Width 14.4 % (11.0-16.0); White Blood Count 8.4 X10*3/uL (4.8-10.8)
[2021-03-16 08:35] LABS: Immature Retic Fraction 26.1 % (2.3-13.4); Retic HGB Equivalent 38.8 pg (30.0-35.0); Reticulocyte Percent 7.7 % (0.5-1.8); Reticulocytes Absolute 0.193 X10*6/uL (0.026-0.095)
[2021-03-16 08:38] LABS: Ammonia 33 umol/L (13-55)
[2021-03-16 08:47] LABS: Magnesium 1.6 mg/dL (1.6-2.6)
[2021-03-16] MEDS: Insulin Lispro 100 UNIT/ML 3 ML VIAL SUBCUT ×2 (08:49→17:09)
[2021-03-16 08:50] LABS: Estimated Average Glucose 255 mg/dL; Hemoglobin A1c % 10.5 %
[2021-03-16] MEDS: FLUoxetine HCl 20 MG CAPSULE PO (08:50)
[2021-03-16] MEDS: NaPROXEN 500 MG TABLET PO ×2 (08:50→17:09)
[2021-03-16 08:54] LABS: Alanine Aminotransferase 61 U/L (0-40); Albumin Level 3.3 g/dL (3.5-5.0); Alkaline Phosphatase 85 U/L (39-117); Anion Gap 11 (12-20); Aspartate Amino Transferase 41 U/L (5-37); Bilirubin Total 1.6 mg/dL (0.0-1.0); Blood Urea Nitrogen 8 mg/dL (9-16); Calcium 8.2 mg/dL (8.4-10.2); Carbon Dioxide 25 mmol/L (22-29); Chloride 103 mmol/L (96-108); Creatinine Clr Calc Pharmacy 81.5; Estimated Glomerular Filt Rate > 60; Glucose Random 245 mg/dL (60-115); Iron 67 mcg/dL (45-160); Percent Iron Saturation 26 % (15-50); Potassium 3.2 mmol/L (3.3-5.1); Sodium 136 mmol/L (135-145); Total Iron Binding Capacity 257 mcg/dL (228-428); Total Protein 5.9 g/dL (6.5-8.0); Unsaturated Iron Binding 190 ug/dL
[2021-03-16 08:57] LABS: Lactate Dehydrogenase 296 U/L (118-273)
[2021-03-16 09:02] LABS: Glucose, Whole Blood 201 mg/dL (60-115)
[2021-03-16 09:05] LABS: Troponin-I High Sensitivity 16.4 ng/L (<3.5-35.0)
[2021-03-16 09:12] LABS: Ferritin 1209 ng/mL (20-250); TSH reflex Free T4 2.25 uIU/mL (0.32-4.0)
[2021-03-16 09:58] LABS: Folate 10.5 ng/mL (> or = 4.0); Vitamin B12 585 pg/mL (200-900)
--- NOTE | 2021-03-16 10:44 | ECG_ITS ---
Test Reason : CHEST PAIN Blood Pressure : / mmHG Vent. Rate : 096 BPM Atrial Rate : 096 BPM P-R Int : 138 ms QRS Dur : 094 ms QT Int : 362 ms P-R-T Axes : 047 042 036 degrees QTc Int : 457 ms Normal sinus rhythm Nonspecific T wave abnormality Borderline ECG No significant changes when compared with the previous EKG of 15 march 2021 Referred By: Saul Elam Electronically Signed By:YVONNE MCLAUGHLIN
[2021-03-16] MEDS: Morphine Sulfate 2 MG/ML CARTRIDGE IVPUSH ×4 (11:43→23:27)
[2021-03-16] MEDS: Potassium Chloride ER 20 MEQ TAB.ER.PRT 40 MEQ PO (11:43)
[2021-03-16 11:51] LABS: Glucose, Whole Blood 145 mg/dL (60-115)
--- NOTE | 2021-03-16 11:59 | P.CNNE_ITS ---
History of Present Illness Data of Consult Service Date: 03/16/21 Primary Care Provider: Unknown Physician 60 years old man with underlying history of depression and substance abuse to said that he was recently diagnosed with diabetes and that overwhelmed him. He said that he just could not take it anymore. He came to hospital with confusion. There was no indication of any recent seizure or focal weakness. He was quite resistant to interview and examination. Review of Systems Review of Systems: No recent cold or flu-like illness or trauma. [facility] Past Medical History Medical History (Updated 03/16/21 @ 12:11 by Nabeel Thao MD) Diabetes Hyperkalemia Substance abuse Social History Social History Household Members: None Housing: Apartment Do you presently have visiting nurse or other home services: No Smoking Status: Never smoker Use of substances other than those prescribed or required for medical reasons: Yes Substance Use Type: Marijuana Substance Use Frequency: Daily Last Used Substance: Days (ago) Currently Displaying Signs/Symptoms of Drug Intoxication Withdrawal: No Have you been hit, kicked, punched, or otherwise hurt by someone within the past year? If so, by whom?: No Do you feel safe in your current relationship?: No Current Relationship Is there a partner from a previous relationship who is making you feel unsafe now?: No Are you made to feel afraid or neglected: No Advance Directives: No Advance Directives Information Provided: No Do you have thoughts of harming others: None Do you have a plan to hurt others: No Plan service: No Current occupational status: unemployed Meds Allergies Allergy/AdvReac Type Severity Reaction Status Date / Time fish derived [FISH] Allergy Unknown UNKNOWN Unverified 08/18/20 18:30 turkey [TURKEY] Allergy Unknown UNK Unverified 08/18/20 18:30 lisinopril AdvReac Swelling Verified 03/16/21 01:39 Active Medications: Current Medications Generic Name Dose Route Start Last Admin Trade Name Freq PRN Reason Stop Dose Admin Acetaminophen 650 mg 03/15/21 20:42 Acetaminophen 325 Mg Tablet PO Q6H PRN Pain, Mild (Pain Scale 1-3) Amitriptyline HCl 100 mg 03/15/21 21:00 03/16/21 02:34 Amitriptyline Hcl 50 Mg Tablet PO 100 mg BEDTIME YUN Administration Amlodipine Besylate 10 mg 03/16/21 09:00 Amlodipine Besylate 10 Mg Tablet PO DAILY [facility] Protocol Carvedilol 6.25 mg 03/15/21 21:00 03/16/21 02:24 Carvedilol 6.25 Mg Tablet PO Not Given BID [facility] Protocol Clonazepam 1 mg 03/15/21 21:00 03/16/21 08:50 Clonazepam 1 Mg Tablet PO 1 mg TID [facility] Administration Fluoxetine HCl 20 mg 03/16/21 09:00 03/16/21 08:50 Fluoxetine Hcl 20 Mg Capsule PO 20 mg DAILY [facility] Administration Sodium Chloride 1,000 mls @ 100 mls/hr 03/15/21 20:45 03/16/21 08:49 Ns IVCONT Not Given .Q10H [facility] Insulin Human Lispro 0 unit 03/16/21 07:30 03/16/21 11:57 Insulin Lispro 100 Unit/Ml 3 Ml Vial SUBCUT Not Given QIDACHS [facility] Protocol Morphine Sulfate 2 mg 03/16/21 11:33 Morphine Sulfate 2 Mg/Ml Cartridge IVPUSH Q2H PRN Pain, Severe (Pain Scale 7-10) Naproxen 500 mg 03/16/21 08:30 03/16/21 08:50 Naproxen 500 Mg Tablet PO 500 mg BIDPC [facility] Administration Omeprazole 40 mg 03/16/21 06:30 03/16/21 05:55 Omeprazole 40 Mg Capsule. PO 40 mg BID@0630,1630 [facility] Administration Pharmacy Consult 1 each 03/15/21 10:24 Consult Rx Perform Med Rec MISCELLANE ONCE PRN Consult order Quetiapine Fumarate 50 mg 03/15/21 21:00 03/16/21 02:36 Quetiapine Fumarate 50 Mg Tablet PO 50 mg BEDTIME [facility] Administration Sodium Chloride 3 ml 03/16/21 00:00 03/16/21 08:33 0.9 % Sodium Chloride Flush 3 Ml Syringe IVFLUSH Not Given QSHIFT [facility] Home Medications Medication Instructions Recorded Confirmed Last Taken Type amitriptyline 100 mg PO BEDTIME 03/15/21 03/15/21 Unknown History amlodipine 10 mg PO DAILY 03/15/21 03/15/21 Unknown History carvedilol 6.25 mg PO BID 03/15/21 03/15/21 Unknown History clonazepam 1 mg PO TID 03/15/21 03/15/21 Unknown History fluoxetine 20 mg PO DAILY 03/15/21 03/15/21 Unknown History naproxen 500 mg PO BIDPC 03/15/21 03/15/21 Unknown History omeprazole 40 mg PO BID 03/15/21 03/15/21 Unknown History quetiapine 300 mg PO BEDTIME 03/15/21 03/15/21 Unknown History Physical Exam Vital Signs: Vital Signs: Last Vital Signs Temp 98.2 F 03/16/21 08:00 Pulse 91 03/16/21 08:00 Resp 16 03/16/21 08:00 BP 111/107 H 03/16/21 08:00 Pulse Ox 99 03/16/21 08:00 Body Mass Index 27.3 He was alert and awake somewhat uncooperative irritated and resistant to examination. I was able to give any gait with him for the whole help of an department sales manager. He answered questions appropriately but was behaving in an art way. Face was symmetrical. Pupils were equal and reactive to light. External ocular muscles were intact. He was able to get up and walk without difficulty. Deep tendon reflexes were absent with flexor plantars. He would light touch to his body was painful for him. Results Labs CBC & Chem 7: 03/16/21 08:09 03/16/21 08:09 Labs: Short CBC 03/15/21 03/16/21 Range/Units 12:50 08:09 WBC 10.6 8.4 (4.8-10.8) X10*3/uL Hgb 9.4 L 8.3 L (14.0-18.0) g/dl Hct 27.8 L 25.6 L (42-52) % Plt Count 351 292 (160-400) X10*3/uL BMP 03/15/21 03/16/21 12:50 08:09 Sodium 139 136 Potassium 2.9 L 3.2 L Chloride 102 103 Carbon Dioxide 27 25 BUN 11 8 L Creatinine 0.85 0.92 Calcium 8.8 8.2 L D Liver Function 03/15/21 03/16/21 Range/Units 12:50 08:09 Total Bilirubin 2.3 H 1.6 H (0.0-1.0) mg/dL Direct Bilirubin 0.9 H (0.0-0.5) mg/dL AST 47 H 41 H (5-37) U/L ALT 76 H 61 H (0-40) U/L Alkaline Phosphatase 92 85 (39-117) U/L Albumin 3.6 3.3 L (3.5-5.0) g/dL Urine 03/15/21 Range/Units 12:53 Urine Color YELLOW Urine Appearance CLEAR Urine pH 7.5 (5.0-8.0) Ur Specific [place] 1.015 (1.005-1.025) Urine Protein NEG (NEG-TRACE) MG/DL Urine Glucose (UA) 100 H (NEG) MG/DL His head CT did not reveal any significant abnormality. Spinal fluid cell count was normal. Microbiology Microbiology Results: Microbiology 03/15/21 17:44 Cerebrospinal Fluid Gram Stain - Final 03/15/21 17:44 Cerebrospinal Fluid CSF Examination - Final 03/15/21 17:44 Cerebrospinal Fluid Fluid Description - Final 03/15/21 17:44 Cerebrospinal Fluid CSF Culture - Preliminary No growth after 1 day Assessment and Plan (1) Altered mental status: Problem details: His overall clinical picture is suggestive more of a psychosomatic disorder. Mainstay of management is reassurance education and counseling. Status: Acute
[2021-03-16 12:11] LABS: C Reactive Protein 1.39 mg/dL (< or = 0.50)
--- NOTE | 2021-03-16 12:22 | MHC.CM.PN ---
EMR REVIEWED, PT ADMITTED W/AMS, CM MET W/PT VIA CAREER COACH WHO IS ALERT & ORIENTED AND ANSWERING QUESTIONS APPROPRIATELY HOWEVER IS VERY IRRITABLE DURING INTERVIEW, PT REPORTS HE LIVES ALONE AND THEN THAT HE HAS A ROOMMATE, PT DENIES USE OF DME AND DENIES HOME SERVICES, PT DENIES HE IS DIABETIC AND DOES NOT TAKE MEDS FOR DIABETES, PT REPORTS HE HAS A PSYCHIATRIST AND WEEKLY THERAPY APPT'S, PT REPORTS MEDS ARE WORKING, REPORTS HE FEELS MENTALLY STABLE AND DENIES CURRENT SI. PT VERIFIES PCP AND DECLINE ASSISTANCE W/HCP AT THIS TIME. PCP: Yamilet Marie PSYCHIATRY/THERAPY: [facility] PSYCHIATRIST: PT UNABLE TO RECALL NAME THERAPIST: LAUREN TRAN
[2021-03-16 12:39] LABS: Procalcitonin 0.04 ng/mL
[2021-03-16 12:42] LABS: Adenovirus PCR Not Detected (Not Detect.); Bordetella parapertussis PCR Not Detected (Not Detect.); Bordetella pertussis PCR Not Detected (Not Detect.); Chlamydia pneumoniae PCR Not Detected (Not Detect.); Coronavirus 229E PCR Not Detected (Not Detect.); Coronavirus HKU1 PCR Not Detected (Not Detect.); Coronavirus NL63 PCR Not Detected (Not Detect.); Coronavirus OC43 PCR Not Detected (Not Detect.); Human metapneumovirus PCR Not Detected (Not Detect.); Influenza A PCR Not Detected (Not Detect.); Influenza B PCR Not Detected (Not Detect.); Mycoplasma pneumoniae PCR Not Detected (Not Detect.); Parainfluenza 1 PCR Not Detected (Not Detect.); Parainfluenza 2 PCR Not Detected (Not Detect.); Parainfluenza 3 PCR Not Detected (Not Detect.); Parainfluenza 4 PCR Not Detected (Not Detect.); RSV PCR Not Detected (Not Detect.); Rhino/Enterovirus PCR Not Detected (Not Detect.); SARS-CoV-2 PCR Not Detected (Not Detect.)
[2021-03-16 13:10] LABS: Troponin-I High Sensitivity 14.2 ng/L (<3.5-35.0)
[2021-03-16 16:52] LABS: Glucose, Whole Blood 182 mg/dL (60-115)
--- NOTE | 2021-03-16 18:06 | P.PNIM_ITS ---
Subjective Subjective Date of Service: 03/16/21 Interval History: oriented x3 but very poor insight into his medical conditions. he states he was dx'ed with DM 2 days ago and it made his BG low and thus he became confused has [facility]. per their records, he was actually admitted 03/09-03/13/21 initially to the ICU with HHS. A1c was 13.9 was d/c'ed very reluctantly on daily Lantus given by [facility] on daily basis via locked med box. MTF not an option given EtOH consumption [pt denied EtOH to me]. he c/o chest pain and abd pain that is nonspecific. the chest pain is worse with palpation of the chest wall. Physical Exam Vital Signs: Vital Signs: Last Vital Signs Temp 98.1 F 03/16/21 15:58 Pulse 105 H 03/16/21 15:58 Resp 16 03/16/21 15:58 BP 105/69 03/16/21 15:58 Pulse Ox 98 03/16/21 15:58 Body Mass Index 27.3 Gen: in no acute distress HEENT: sclera anicteric, moist mucus membranes Neck: supple Lungs: clear to auscultation bilaterally Heart: regular rate and rhythm, no murmurs; chest wall tenderness Abd: soft, non-tender, non-distended Ext: no edema Skin: warm/well-perfused Neuro: alert and oriented x3, no focal findings Psych: very poor insight, labile affect Objective Data Current Medications Generic Name Dose Route Start Last Admin Trade Name Loyq PRN Reason Stop Dose Admin Acetaminophen 650 mg 03/15/21 20:42 Acetaminophen 325 Mg Tablet PO Q6H PRN Pain, Mild (Pain Scale 1-3) Amitriptyline HCl 100 mg 03/15/21 21:00 03/16/21 02:34 Amitriptyline Hcl 50 Mg Tablet PO 100 mg BEDTIME YUN Administration Amlodipine Besylate 10 mg 03/16/21 09:00 Amlodipine Besylate 10 Mg Tablet PO DAILY Y[facility] Protocol Carvedilol 6.25 mg 03/15/21 21:00 03/16/21 02:24 Carvedilol 6.25 Mg Tablet PO Not Given BID YUN Protocol Clonazepam 1 mg 03/15/21 21:00 03/16/21 14:12 Clonazepam 1 Mg Tablet PO 1 mg TID YUN Administration Fluoxetine HCl 20 mg 03/16/21 09:00 03/16/21 08:50 Fluoxetine Hcl 20 Mg Capsule PO 20 mg DAILY YUN Administration Sodium Chloride 1,000 mls @ 100 mls/hr 03/15/21 20:45 03/16/21 15:53 Ns IVCONT 100 mls/hr .Q10H YUN Administration Insulin Human Lispro 0 unit 03/16/21 07:30 03/16/21 17:09 Insulin Lispro 100 Unit/Ml 3 Ml Vial SUBCUT 2 unit QIDACHS COUNTS INCLUDE 234 BEDS AT THE [facility] Administration Protocol Morphine Sulfate 2 mg 03/16/21 11:33 03/16/21 14:12 Morphine Sulfate 2 Mg/Ml Cartridge IVPUSH 2 mg Q2H PRN Administration Pain, Severe (Pain Scale 7-10) Naproxen 500 mg 03/16/21 08:30 03/16/21 17:09 Naproxen 500 Mg Tablet PO 500 mg BIDPC YUN Administration Omeprazole 40 mg 03/16/21 06:30 03/16/21 17:09 Omeprazole 40 Mg Capsule. PO 40 mg BID@0630,1630 COUNTS [facility]CLUDE 234 BEDS AT [facility] Administration Pharmacy Consult 1 each 03/15/21 10:24 Consult Rx Perform Med Rec MISCELLANE ONCE PRN Consult order Quetiapine Fumarate 50 mg 03/15/21 21:00 03/16/21 02:36 Quetiapine Fumarate 50 Mg Tablet PO 50 mg BEDTIME COUNTS INCLUDE 234 BEDS AT THE [facility] Administration Sodium Chloride 3 ml 03/16/21 00:00 03/16/21 16:23 0.9 % Sodium Chloride Flush 3 Ml Syringe IVFLUSH Not Given QSHIFT COUNTS INCLUDE 234 BEDS AT THE [facility] Labs CBC & Chem 7: 03/16/21 08:09 03/16/21 08:09 Microbiology Microbiology Results: Microbiology 03/15/21 17:44 Cerebrospinal Fluid Gram Stain - Final 03/15/21 17:44 Cerebrospinal Fluid CSF Examination - Final 03/15/21 17:44 Cerebrospinal Fluid Fluid Description - Final 03/15/21 17:44 Cerebrospinal Fluid CSF Culture - Preliminary No growth after 1 day Assessment and Plan (1) Altered mental status: Problem details: His overall clinical picture is suggestive more of a psychosomatic disorder. Mainstay of management is reassurance education and counseling. Status: Acute (2) Encephalopathy: Status: Acute Assessment and Plan: 60yo M with DM2 (though denies prior hx), HTN, HLD, polysubstance use, schizophrenia recent admission to [facility] with AMS from [facility] presented with confusion # encephalopathy, toxic-metabolic. - LP no signs of CSF. will treat empirically for Wernicke's with IV thiamine given EtOH hx. check B12, RPR, HIV. in the end, however, likely due to underlying schizophrenia # atypical chest pain - Tn-I decreasing, no ischemic EKG changes. try lidocaine patch. # hypoK - replete # anemia - check B12/FA/iron studies/FOBT # HTN - holding amlodipine + carvedilol- blood pressures are low/normal # schizophrenia - fluoxetine, clonazepam, amitriptyline, quetiapine, psychiatry consult # DM2 - correction-dose lispro # VTE ppx - LMWH
[2021-03-16] MEDS: Enoxaparin Sodium 40 MG/0.4 ML SYRINGE SUBCUT (18:32)
[2021-03-16] MEDS: Lidocaine 4 % Patch ADH..PATCH 1 PATCH TRANSDERMA (18:32)
--- NOTE | 2021-03-16 18:52 | PC.NURSE ---
Patient c/o chest pain, STAT EKG ordered, IV morphine given. Patient reports relief with morphine. Patient yelling out frequently/agitated, difficult to redirect, history of schizoaffective disorder/PTSD, Psych consult pending. Patient frequently jumping out of bed/recliner, telesitter in place.
[2021-03-16] MEDS: Thiamine HCL 500 MG in 0.9 % Sodium Chloride 100 ML 210 MG IV (19:52)
[2021-03-17] MEDS: Thiamine HCL 500 MG in 0.9 % Sodium Chloride 100 ML 210 MG IV ×3 (01:19→18:29)
[2021-03-17] MEDS: 0.9 % Sodium Chloride 1,000 ML 100 ML IVCONT (01:30)
[2021-03-17] MEDS: Morphine Sulfate 2 MG/ML CARTRIDGE IVPUSH ×7 (01:30→18:53)
[2021-03-17] MEDS: 0.9 % Sodium Chloride Flush 3 ML SYRINGE IVFLUSH ×2 (01:32→15:53)
[2021-03-17 03:44] VITALS: BP 105/61; PULSE 93; RESP 16; TEMP 37.1; O2SAT 97
[2021-03-17] MEDS: Omeprazole 40 MG CAPSULE.DR PO ×2 (06:12→15:53)
[2021-03-17 06:28] LABS: MANUAL DIFF FLAG NO
[2021-03-17 06:40] LABS: Basophils Absolute Auto 0.1 X10*3/uL (0.0-0.2); Basophils Percent Auto 0.6 % (0-2); Eosinophils Absolute Auto 0.1 X10*3/uL (0.0-0.4); Eosinophils Percent Auto 1.7 % (0-4); Hematocrit 23.1 % (42-52); Hemoglobin 7.7 g/dl (14.0-18.0); Imm Gran Abs Auto 0.15 X10*3/uL (0.00-0.03); Imm Gran Pct Auto 1.8 % (0.0-0.4); Lymphocytes Absolute Auto 2.6 X10*3/uL (1.2-4.9); Lymphocytes Percent Auto 30.5 % (20-40); Mean Corpuscular HGB Conc 33.3 g/dl (31.0-36.0); Mean Corpuscular Hemoglobin 33.2 pg (27.0-33.0); Mean Corpuscular Volume 99.6 fL (80-98); Mean Platelet Volume 8.8 fL (9.4-12.4); Monocytes Absolute Auto 0.7 X10*3/uL (0.1-1.2); Monocytes Percent Auto 8.4 % (2-11); Neutrophils Absolute Auto 4.8 X10*3/uL (2.0-8.3); Platelet Count 304 X10*3/uL (160-400); Red Blood Count 2.32 X10*6/uL (4.60-5.80); Red Cell Distribution Width 14.7 % (11.0-16.0); White Blood Count 8.4 X10*3/uL (4.8-10.8)
[2021-03-17 07:26] LABS: Anion Gap 15 (12-20); Blood Urea Nitrogen 11 mg/dL (9-16); Carbon Dioxide 19 mmol/L (22-29); Chloride 108 mmol/L (96-108); Creatinine Clr Calc Pharmacy 70.8; Estimated Glomerular Filt Rate > 60; Glucose Random 143 mg/dL (60-115); Potassium 3.6 mmol/L (3.3-5.1); Sodium 138 mmol/L (135-145)
[2021-03-17 07:56] LABS: HBc Num1 0.29 S/CO (0.00-0.79); HIV AB/AG Nonreactive (Nonreactive); HIV Num 1 0.05 S/CO (0.00-0.99); Hepatitis B Core Antibody Nonreactive (Nonreactive); ~HepC Num1 14.64 S/CO (0.00-0.79); ~Hepatitis C Antibody Reactive (Nonreactive)
[2021-03-17 08:00] VITALS: BP 103/64; PULSE 109; RESP 18; TEMP 36.6; O2SAT 98
[2021-03-17 08:10] LABS: Glucose, Whole Blood 178 mg/dL (60-115)
[2021-03-17 08:11] LABS: HBS Num1 21.03 mIU/mL (0-7.99); HBsAGNum1 0.27 S/CO (0.00-0.99); Hepatitis B Surface Antigen Negative (Negative); ~Hepatitis B Surface Antibody REACTIVE (Nonreactive)
[2021-03-17 08:19] LABS: Bilirubin Direct 0.4 mg/dL (0.0-0.5); Bilirubin Total 0.6 mg/dL (0.0-1.0)
[2021-03-17] MEDS: Lidocaine 4 % Patch ADH..PATCH 1 PATCH TRANSDERMA (08:27)
[2021-03-17] MEDS: Insulin Lispro 100 UNIT/ML 3 ML VIAL SUBCUT ×2 (08:27→16:57)
[2021-03-17] MEDS: FLUoxetine HCl 20 MG CAPSULE PO (08:28)
[2021-03-17] MEDS: NaPROXEN 500 MG TABLET PO ×2 (08:28→16:57)
[2021-03-17] MEDS: clonazePAM 1 MG TABLET PO ×3 (08:28→20:36)
[2021-03-17 08:49] LABS: Syphilis Screen Nonreactive (Nonreactive)
[2021-03-17 11:49] LABS: Glucose, Whole Blood 108 mg/dL (60-115)
[2021-03-17 12:00] VITALS: BP 112/71; PULSE 90; RESP 16; TEMP 36.4; O2SAT 98
--- NOTE | 2021-03-17 12:09 | HO.PM.IMPN ---
Subjective Subjective Date of Service: 03/17/21 Interval History: chest wall tenderness improved no seizures alert and oriented but definitely does not remember being admitted to [facility] 03/09-03/13 including ICU denies EtOH again, states he has not had DM2 for more than 3 days Physical Exam Vital Signs: Vital Signs: Last Vital Signs Temp 98 F 03/17/21 08:00 Pulse 109 H 03/17/21 08:00 Resp 18 03/17/21 08:00 BP 103/64 03/17/21 08:00 Pulse Ox 98 03/17/21 08:00 Body Mass Index 27.3 Gen: in no acute distress HEENT: sclera anicteric, moist mucus membranes Neck: supple Lungs: clear to auscultation bilaterally Heart: regular rate and rhythm, no murmurs; chest wall tenderness Abd: soft, non-tender, non-distended Ext: no edema Skin: warm/well-perfused Neuro: alert and oriented x3, no focal findings Psych: very poor insight, labile affect Objective Data Current Medications Generic Name Dose Route Start Last Admin Trade Name Naima PRN Reason Stop Dose Admin Acetaminophen 650 mg 03/15/21 20:42 Acetaminophen 325 Mg Tablet PO Q6H PRN Pain, Mild (Pain Scale 1-3) Amitriptyline HCl 100 mg 03/15/21 21:00 03/16/21 19:44 Amitriptyline Hcl 50 Mg Tablet PO 100 mg BEDTIME YUN Administration Amlodipine Besylate 10 mg 03/16/21 09:00 Amlodipine Besylate 10 Mg Tablet PO DAILY YUN Protocol Carvedilol 6.25 mg 03/15/21 21:00 03/16/21 02:24 Carvedilol 6.25 Mg Tablet PO Not Given BID YUN Protocol Clonazepam 1 mg 03/15/21 21:00 03/17/21 08:28 Clonazepam 1 Mg Tablet PO 1 mg TID YUN Administration Enoxaparin Sodium 40 mg 03/16/21 18:30 03/16/21 18:32 Enoxaparin Sodium 40 Mg/0.4 Ml Syringe SUBCUT 40 mg Q24H YUN Administration Fluoxetine HCl 20 mg 03/16/21 09:00 03/17/21 08:28 Fluoxetine Hcl 20 Mg Capsule PO 20 mg DAILY YUN Administration Sodium Chloride 1,000 mls @ 100 mls/hr 03/15/21 20:45 03/17/21 11:56 Ns IVCONT Infused .Q10H YUN Infusion Thiamine HCl 500 mg/ Sodium 105 mls @ 210 mls/hr 03/16/21 18:15 03/17/21 11:38 Chloride IV 210 mls/hr Q8H YUN Administration Insulin Human Lispro 0 unit 03/16/21 07:30 03/17/21 11:57 Insulin Lispro 100 Unit/Ml 3 Ml Vial SUBCUT Not Given QIDACHS [facility] Protocol Lidocaine 1 patch 03/16/21 18:30 03/17/21 08:27 Lidocaine 4 % Patch Adh..Patch TRANSDERMA 1 patch DAILY YUN Administration Protocol Morphine Sulfate 2 mg 03/16/21 11:33 03/17/21 09:11 Morphine Sulfate 2 Mg/Ml Cartridge IVPUSH 2 mg Q2H PRN Administration Pain, Severe (Pain Scale 7-10) Naproxen 500 mg 03/16/21 08:30 03/17/21 08:28 Naproxen 500 Mg Tablet PO 500 mg BIDPC YUN Administration Omeprazole 40 mg 03/16/21 06:30 03/17/21 06:12 Omeprazole 40 Mg Capsule. PO 40 mg BID@0687,1630 [facility] Administration Pharmacy Consult 1 each 03/15/21 10:24 Consult Rx Perform Med Rec MISCELLANE ONCE PRN Consult order Quetiapine Fumarate 50 mg 03/15/21 21:00 03/16/21 19:44 Quetiapine Fumarate 50 Mg Tablet PO 50 mg BEDTIME [facility] Administration Sodium Chloride 3 ml 03/16/21 00:00 03/17/21 08:29 0.9 % Sodium Chloride Flush 3 Ml Syringe IVFLUSH Not Given QSHIFT [facility] Labs CBC & Chem 7: 03/17/21 06:16 03/17/21 06:16 Labs: Laboratory Results - last 24 hr 03/16/21 03/16/21 03/16/21 08:09 08:09 08:09 WBC RBC Hgb Hct MCV MCH MCHC RDW Plt Count MPV Immature Gran % (Auto) Neut % (Auto) Lymph % (Auto) [place] % (Auto) Eos % (Auto) Baso % (Auto) Lymph # (Auto) [place] # (Auto) Eos # (Auto) Baso # (Auto) Abs Immat Gran (auto) Absolute Neuts (auto) Absolute Nucleated RBC Nucleated RBC % (auto) Sodium Potassium Chloride Carbon Dioxide Anion Gap BUN Creatinine Estim Creat Clear Calc Estimated GFR POC Glucose Random Glucose Calcium Total Bilirubin Direct Bilirubin Troponin I High Sens C-Reactive Protein 1.39 H Procalcitonin Respiratory Panel Solorzano T.pallidum Ab (EIA) Nonreactive Adenovirus (Rapid PCR) B.pert (TEM-PCR) B.parapertussis DNA PCR C. pneumoniae DNA (PCR) Coronavirus OC43 (PCR) Coronavirus HKU1 (PCR) Coronavirus 229E (PCR) Coronavirus NL63 (PCR) Hep Bs Antigen Negative Hep Bs Antibody REACTIVE Hep B Core Total Ab Nonreactive Hepatitis C Ab (EIA) Reactive H HIV 1&2 Ab/P24 Ag 4thGn Nonreactive Human Metapneumovir PCR Influenza A (RT-PCR) Influenza B (RT-PCR) M. pneumoniae (PCR) Parainfluenza 1 (PCR) Parainfluenza 2 (PCR) Parainfluenza 3 (PCR) Parainfluenza 4 (PCR) RSV (PCR) Entero/Rhino (PCR) SARS-CoV-2 RNA (RT-PCR) Blood Type Antibody Screen Direct Antiglob Test MACKENZIE, Polyspecific 03/16/21 03/16/21 03/16/21 08:09 12:22 12:35 WBC RBC Hgb Hct MCV MCH MCHC RDW Plt Count MPV Immature Gran % (Auto) Neut % (Auto) Lymph % (Auto) [place] % (Auto) Eos % (Auto) Baso % (Auto) Lymph # (Auto) [place] # (Auto) Eos # (Auto) Baso # (Auto) Abs Immat Gran (auto) Absolute Neuts (auto) Absolute Nucleated RBC Nucleated RBC % (auto) Sodium Potassium Chloride Carbon Dioxide Anion Gap BUN Creatinine Estim Creat Clear Calc Estimated GFR POC Glucose Random Glucose Calcium Total Bilirubin Direct Bilirubin Troponin I High Sens 14.2 C-Reactive Protein Procalcitonin 0.04 Respiratory Panel Solorzano See Note T.pallidum Ab (EIA) Adenovirus (Rapid PCR) Not Detected B.pert (TEM-PCR) Not Detected B.parapertussis DNA PCR Not Detected C. pneumoniae DNA (PCR) Not Detected Coronavirus OC43 (PCR) Not Detected Coronavirus HKU1 (PCR) Not Detected Coronavirus 229E (PCR) Not Detected Coronavirus NL63 (PCR) Not Detected Hep Bs Antigen Hep Bs Antibody Hep B Core Total Ab Hepatitis C Ab (EIA) HIV 1&2 Ab/P24 Ag 4thGn Human Metapneumovir PCR Not Detected Influenza A (RT-PCR) Not Detected Influenza B (RT-PCR) Not Detected M. pneumoniae (PCR) Not Detected Parainfluenza 1 (PCR) Not Detected Parainfluenza 2 (PCR) Not Detected Parainfluenza 3 (PCR) Not Detected Parainfluenza 4 (PCR) Not Detected RSV (PCR) Not Detected Entero/Rhino (PCR) Not Detected SARS-CoV-2 RNA (RT-PCR) Not Detected Blood Type Antibody Screen Direct Antiglob Test MACKENZIE, Polyspecific 03/16/21 03/17/21 03/17/21 16:49 06:16 06:16 WBC 8.4 RBC 2.32 L Hgb 7.7 L Hct 23.1 L MCV 99.6 H MCH 33.2 H MCHC 33.3 RDW 14.7 Plt Count 304 MPV 8.8 L Immature Gran % (Auto) 1.8 H Neut % (Auto) 57.0 Lymph % (Auto) 30.5 [place] % (Auto) 8.4 Eos % (Auto) 1.7 Baso % (Auto) 0.6 Lymph # (Auto) 2.6 [place] # (Auto) 0.7 Eos # (Auto) 0.1 Baso # (Auto) 0.1 Abs Immat Gran (auto) 0.15 H Absolute Neuts (auto) 4.8 Absolute Nucleated RBC 0.000 Nucleated RBC % (auto) 0.0 Sodium 138 Potassium 3.6 Chloride 108 Carbon Dioxide 19 L Anion Gap 15 BUN 11 Creatinine 1.06 Estim Creat Clear Calc 70.8 Estimated GFR > 60 POC Glucose 182 H Random Glucose 143 H D Calcium 8.0 L Total Bilirubin 0.6 Direct Bilirubin 0.4 Troponin I High Sens C-Reactive Protein Procalcitonin Respiratory Panel Solorzano T.pallidum Ab (EIA) Adenovirus (Rapid PCR) B.pert (TEM-PCR) B.parapertussis DNA PCR C. pneumoniae DNA (PCR) Coronavirus OC43 (PCR) Coronavirus HKU1 (PCR) Coronavirus 229E (PCR) Coronavirus NL63 (PCR) Hep Bs Antigen Hep Bs Antibody Hep B Core Total Ab Hepatitis C Ab (EIA) HIV 1&2 Ab/P24 Ag 4thGn Human Metapneumovir PCR Influenza A (RT-PCR) Influenza B (RT-PCR) M. pneumoniae (PCR) Parainfluenza 1 (PCR) Parainfluenza 2 (PCR) Parainfluenza 3 (PCR) Parainfluenza 4 (PCR) RSV (PCR) Entero/Rhino (PCR) SARS-CoV-2 RNA (RT-PCR) Blood Type Antibody Screen Direct Antiglob Test MACKENZIE, Polyspecific 03/17/21 03/17/21 03/17/21 07:56 08:10 08:10 WBC RBC Hgb Hct MCV MCH MCHC RDW Plt Count MPV Immature Gran % (Auto) Neut % (Auto) Lymph % (Auto) [place] % (Auto) Eos % (Auto) Baso % (Auto) Lymph # (Auto) [place] # (Auto) Eos # (Auto) Baso # (Auto) Abs Immat Gran (auto) Absolute Neuts (auto) Absolute Nucleated RBC Nucleated RBC % (auto) Sodium Potassium Chloride Carbon Dioxide Anion Gap BUN Creatinine Estim Creat Clear Calc Estimated GFR POC Glucose 178 H Random Glucose Calcium Total Bilirubin Direct Bilirubin Troponin I High Sens C-Reactive Protein Procalcitonin Respiratory Panel Solorzano T.pallidum Ab (EIA) Adenovirus (Rapid PCR) B.pert (TEM-PCR) B.parapertussis DNA PCR C. pneumoniae DNA (PCR) Coronavirus OC43 (PCR) Coronavirus HKU1 (PCR) Coronavirus 229E (PCR) Coronavirus NL63 (PCR) Hep Bs Antigen Hep Bs Antibody Hep B Core Total Ab Hepatitis C Ab (EIA) HIV 1&2 Ab/P24 Ag 4thGn Human Metapneumovir PCR Influenza A (RT-PCR) Influenza B (RT-PCR) M. pneumoniae (PCR) Parainfluenza 1 (PCR) Parainfluenza 2 (PCR) Parainfluenza 3 (PCR) Parainfluenza 4 (PCR) RSV (PCR) Entero/Rhino (PCR) SARS-CoV-2 RNA (RT-PCR) Blood Type O Positive Antibody Screen NEGATIVE Direct Antiglob Test NEGATIVE MACKENZIE, Polyspecific NEGATIVE 03/17/21 11:41 WBC RBC Hgb Hct MCV MCH MCHC RDW Plt Count MPV Immature Gran % (Auto) Neut % (Auto) Lymph % (Auto) [place] % (Auto) Eos % (Auto) Baso % (Auto) Lymph # (Auto) [place] # (Auto) Eos # (Auto) Baso # (Auto) Abs Immat Gran (auto) Absolute Neuts (auto) Absolute Nucleated RBC Nucleated RBC % (auto) Sodium Potassium Chloride Carbon Dioxide Anion Gap BUN Creatinine Estim Creat Clear Calc Estimated GFR POC Glucose 108 Random Glucose Calcium Total Bilirubin Direct Bilirubin Troponin I High Sens C-Reactive Protein Procalcitonin Respiratory Panel Solorzano T.pallidum Ab (EIA) Adenovirus (Rapid PCR) B.pert (TEM-PCR) B.parapertussis DNA PCR C. pneumoniae DNA (PCR) Coronavirus OC43 (PCR) Coronavirus HKU1 (PCR) Coronavirus 229E (PCR) Coronavirus NL63 (PCR) Hep Bs Antigen Hep Bs Antibody Hep B Core Total Ab Hepatitis C Ab (EIA) HIV 1&2 Ab/P24 Ag 4thGn Human Metapneumovir PCR Influenza A (RT-PCR) Influenza B (RT-PCR) M. pneumoniae (PCR) Parainfluenza 1 (PCR) Parainfluenza 2 (PCR) Parainfluenza 3 (PCR) Parainfluenza 4 (PCR) RSV (PCR) Entero/Rhino (PCR) SARS-CoV-2 RNA (RT-PCR) Blood Type Antibody Screen Direct Antiglob Test MACKENZIE, Polyspecific Microbiology Microbiology Results: Microbiology 03/15/21 17:44 Cerebrospinal Fluid Gram Stain - Final 03/15/21 17:44 Cerebrospinal Fluid CSF Examination - Final 03/15/21 17:44 Cerebrospinal Fluid Fluid Description - Final 03/15/21 17:44 Cerebrospinal Fluid CSF Culture - Preliminary No growth after 2 days 03/15/21 18:10 Blood - Venous Blood Culture - Preliminary No growth after 24 hours. 03/15/21 17:09 Blood - Venous Blood Culture - Preliminary No growth after 24 hours. Assessment and Plan (1) Altered mental status: Status: Acute (2) Encephalopathy: Status: Acute Assessment and Plan: hospital d#3 60yo M with DM2 (though denies prior hx), HTN, HLD, polysubstance use, schizophrenia recent admission to [facility] with AMS from [facility] completely unbeknownst to the patient presented with confusion though appears to be his baseline # encephalopathy, toxic-metabolic, versus psychiatric disorder - LP no signs of CSF. treating empirically for Wernicke's with IV thiamine given reported EtOH hx from [facility] paperwork. NH3, B12, HIV, T pallidum EIA negative. # atypical chest pain - Tn-I decreasing, no ischemic EKG changes. continue lidocaine patch. # hypoK - repleted # anemia, Silvano-neg hemolytic - Heme consult. check G6PD, SPEP/RADHA, flow cytometry; FOBT pending # HTN - holding amlodipine + carvedilol- blood pressures are low/normal # schizophrenia - fluoxetine, clonazepam, amitriptyline, quetiapine; psychiatry consult; appears to have no insight into his medical condition # DM2, A1c 10.5 - correction-dose lispro # VTE ppx - LMWH
--- NOTE | 2021-03-17 14:30 | P.CNPS_ITS ---
History of Present Illness Date of Service: 03/17/2021 Chief Complaint: AMS Reason for Consult: AMS, underlying psychiatric disorder Requesting physician: Saul Elam Discussed with referring provider: Yes Sources of Information: patient interviewed and chart reviewed Additional Sources of Information: Corina-friend Martínez-[facility] youth care worker HPI Narrative: Patient is a 60 year old male currently medically admitted after presenting to the ED with AMS. He was reportedly quite confused and disoriented and unaware that he had recently been admitted and discharged from [facility]. Confused regarding DM, believing was diagnosed 3 days ago. Patient seen by this senior mortgage underwriter in his hospital room. He was awake, alert and sitting up in recliner engaged in interview. Oriented to person, place, time and situation. Initially patient very pleasant and engaged in interview, then became quite irritable and no longer wished to speak to this senior mortgage underwriter. He did state that he's had diabetes for three days and was upset that he had insulin at his apt that no one showed him how to use. When asked if he had any services in the home as I had been told he had services several days per week, patient became very angry with this senior mortgage underwriter. Collateral: Corina (patient's friend): She reports she was with patient the day he was brought to [facility] ED. She states that he has been very confused for some time, but in particular day of admission he was confused about where to go to [facility], was falling numerous times and reportedly urinated on himself. She states she brought him to [facility] on [facility], [facility] then sent him to [facility]. Martínez Lockwood ([facility] geriatric case manager): Martínez reports he has known patient for over 10 years and over the last 3- 4 years his health and memory have deteriorated significantly. He cited examples of having to find him because he was lost and didn't know how to get back home (he was actually around the corner from his apt). he also reported getting called by a [employer] business executive stating that patient had been sitting on the bus for hours and didn't know where he was supposed to be going. Martínez reports that patient is also a DM client and has a DM worker named Marlon Castro ([phone]). Martínez reports that patient recently had services increased, but that he has been advocating for sometime for patient to be in some type of residential setting where he is supervised and medications are administered. Review of Systems Reports memory loss Psychiatric: Reports irritability and Reports memory loss [facility] Medical History (Updated 03/17/21 @ 16:13 by Bekah Ni CNP) Diabetes Hyperkalemia Hypertension Schizo affective schizophrenia Substance abuse Diagnostics Vital Signs (24Hr): Vital Signs - 24 hr 03/16/21 15:58 03/16/21 19:28 03/16/21 23:43 Temperature 98.1 F 97.2 F 98.8 F Pulse Rate 105 H 101 H 109 H Respiratory Rate 16 20 16 Blood Pressure 105/69 106/57 L 106/63 Pulse Oximetry 98 98 98 03/17/21 03:44 03/17/21 08:00 03/17/21 12:00 Temperature 98.8 F 98 F 97.5 F Pulse Rate 93 109 H 90 Respiratory Rate 16 18 16 Blood Pressure 105/61 103/64 112/71 Pulse Oximetry 97 98 98 Body Mass Index 27.3 Labs Results: 03/17/21 06:16 03/17/21 06:16 Labs: Laboratory Results - last 48 hr 03/15/21 03/15/21 03/15/21 12:50 12:50 12:50 WBC RBC Hgb Hct MCV MCH MCHC RDW Plt Count MPV Immature Gran % (Auto) Neut % (Auto) Lymph % (Auto) [place] % (Auto) Eos % (Auto) Baso % (Auto) Lymph # (Auto) [place] # (Auto) Eos # (Auto) Baso # (Auto) Abs Immat Gran (auto) Absolute Neuts (auto) Absolute Nucleated RBC Nucleated RBC % (auto) Absolute Retic Percent Retic Immature Retic Fraction Retic Hgb Equivalent Sodium Potassium Chloride Carbon Dioxide Anion Gap BUN Creatinine Estim Creat Clear Calc Estimated GFR POC Glucose Random Glucose Estimat Average Glucose Hemoglobin A1c % Osmolality 288 Calcium Magnesium Iron TIBC % Saturation Unsat Iron Binding Ferritin Total Bilirubin Direct Bilirubin AST ALT Alkaline Phosphatase Ammonia Lactate Dehydrogenase Troponin I High Sens C-Reactive Protein Total Protein Albumin Vitamin B12 Folate Procalcitonin TSH Urine Osmolality 289 L Ur Random Sodium 102.0 Ur Random Potassium 9.6 Ur Random Chloride 95.0 CSF Tube Number CSF Volume CSF Appearance CSF Color CSF WBC CSF RBC CSF Neutrophils CSF Lymphocytes CSF Monocytes % CSF Other Cells % Respiratory Panel Solorzano T.pallidum Ab (EIA) Adenovirus (Rapid PCR) B.pert (TEM-PCR) B.parapertussis DNA PCR C. pneumoniae DNA (PCR) Coronavirus OC43 (PCR) Coronavirus HKU1 (PCR) Coronavirus 229E (PCR) Coronavirus NL63 (PCR) Hep Bs Antigen Hep Bs Antibody Hep B Core Total Ab Hepatitis C Ab (EIA) HIV 1&2 Ab/P24 Ag 4thGn Human Metapneumovir PCR Influenza A (RT-PCR) Influenza B (RT-PCR) M. pneumoniae (PCR) Parainfluenza 1 (PCR) Parainfluenza 2 (PCR) Parainfluenza 3 (PCR) Parainfluenza 4 (PCR) RSV (PCR) Entero/Rhino (PCR) SARS-CoV-2 RNA (RT-PCR) Blood Type Antibody Screen Direct Antiglob Test MACKENZIE, Polyspecific 03/15/21 03/15/21 03/15/21 17:09 17:44 18:40 WBC RBC Hgb Hct MCV MCH MCHC RDW Plt Count MPV Immature Gran % (Auto) Neut % (Auto) Lymph % (Auto) [place] % (Auto) Eos % (Auto) Baso % (Auto) Lymph # (Auto) [place] # (Auto) Eos # (Auto) Baso # (Auto) Abs Immat Gran (auto) Absolute Neuts (auto) Absolute Nucleated RBC Nucleated RBC % (auto) Absolute Retic Percent Retic Immature Retic Fraction Retic Hgb Equivalent Sodium Potassium Chloride Carbon Dioxide Anion Gap BUN Creatinine Estim Creat Clear Calc Estimated GFR POC Glucose 154 H Random Glucose Estimat Average Glucose Hemoglobin A1c % Osmolality Calcium Magnesium Iron TIBC % Saturation Unsat Iron Binding Ferritin Total Bilirubin Direct Bilirubin AST ALT Alkaline Phosphatase Ammonia Lactate Dehydrogenase Troponin I High Sens 33.8 D C-Reactive Protein Total Protein Albumin Vitamin B12 Folate Procalcitonin TSH Urine Osmolality Ur Random Sodium Ur Random Potassium Ur Random Chloride CSF Tube Number 4 CSF Volume 2.0 CSF Appearance CLEAR CSF Color COLORLESS CSF WBC 3 CSF RBC 10 CSF Neutrophils 0 CSF Lymphocytes 40 CSF Monocytes % 60 CSF Other Cells % 0 Respiratory Panel Solorzano T.pallidum Ab (EIA) Adenovirus (Rapid PCR) B.pert (TEM-PCR) B.parapertussis DNA PCR C. pneumoniae DNA (PCR) Coronavirus OC43 (PCR) Coronavirus HKU1 (PCR) Coronavirus 229E (PCR) Coronavirus NL63 (PCR) Hep Bs Antigen Hep Bs Antibody Hep B Core Total Ab Hepatitis C Ab (EIA) HIV 1&2 Ab/P24 Ag 4thGn Human Metapneumovir PCR Influenza A (RT-PCR) Influenza B (RT-PCR) M. pneumoniae (PCR) Parainfluenza 1 (PCR) Parainfluenza 2 (PCR) Parainfluenza 3 (PCR) Parainfluenza 4 (PCR) RSV (PCR) Entero/Rhino (PCR) SARS-CoV-2 RNA (RT-PCR) Blood Type Antibody Screen Direct Antiglob Test MACKENZIE, Polyspecific 03/16/21 03/16/21 03/16/21 02:07 06:09 07:27 WBC RBC Hgb Hct MCV MCH MCHC RDW Plt Count MPV Immature Gran % (Auto) Neut % (Auto) Lymph % (Auto) [place] % (Auto) Eos % (Auto) Baso % (Auto) Lymph # (Auto) [place] # (Auto) Eos # (Auto) Baso # (Auto) Abs Immat Gran (auto) Absolute Neuts (auto) Absolute Nucleated RBC Nucleated RBC % (auto) Absolute Retic Percent Retic Immature Retic Fraction Retic Hgb Equivalent Sodium Potassium Chloride Carbon Dioxide Anion Gap BUN Creatinine Estim Creat Clear Calc Estimated GFR POC Glucose 262 H 191 H 201 H Random Glucose Estimat Average Glucose Hemoglobin A1c % Osmolality Calcium Magnesium Iron TIBC % Saturation Unsat Iron Binding Ferritin Total Bilirubin Direct Bilirubin AST ALT Alkaline Phosphatase Ammonia Lactate Dehydrogenase Troponin I High Sens C-Reactive Protein Total Protein Albumin Vitamin B12 Folate Procalcitonin TSH Urine Osmolality Ur Random Sodium Ur Random Potassium Ur Random Chloride CSF Tube Number CSF Volume CSF Appearance CSF Color CSF WBC CSF RBC CSF Neutrophils CSF Lymphocytes CSF Monocytes % CSF Other Cells % Respiratory Panel Solorzano T.pallidum Ab (EIA) Adenovirus (Rapid PCR) B.pert (TEM-PCR) B.parapertussis DNA PCR C. pneumoniae DNA (PCR) Coronavirus OC43 (PCR) Coronavirus HKU1 (PCR) Coronavirus 229E (PCR) Coronavirus NL63 (PCR) Hep Bs Antigen Hep Bs Antibody Hep B Core Total Ab Hepatitis C Ab (EIA) HIV 1&2 Ab/P24 Ag 4thGn Human Metapneumovir PCR Influenza A (RT-PCR) Influenza B (RT-PCR) M. pneumoniae (PCR) Parainfluenza 1 (PCR) Parainfluenza 2 (PCR) Parainfluenza 3 (PCR) Parainfluenza 4 (PCR) RSV (PCR) Entero/Rhino (PCR) SARS-CoV-2 RNA (RT-PCR) Blood Type Antibody Screen Direct Antiglob Test MACKENZIE, Polyspecific 03/16/21 03/16/21 03/16/21 07:53 08:09 08:09 WBC 8.4 RBC 2.58 L Hgb 8.3 L Hct 25.6 L MCV 99.2 H MCH 32.2 MCHC 32.4 RDW 14.4 Plt Count 292 MPV 8.6 L Immature Gran % (Auto) 1.7 H Neut % (Auto) 62.7 Lymph % (Auto) 24.3 [place] % (Auto) 9.8 Eos % (Auto) 1.1 Baso % (Auto) 0.4 Lymph # (Auto) 2.1 [place] # (Auto) 0.8 Eos # (Auto) 0.1 Baso # (Auto) 0.0 Abs Immat Gran (auto) 0.14 H Absolute Neuts (auto) 5.3 Absolute Nucleated RBC 0.020 H Nucleated RBC % (auto) 0.2 Absolute Retic Percent Retic Immature Retic Fraction Retic Hgb Equivalent Sodium 136 Potassium 3.2 L Chloride 103 Carbon Dioxide 25 Anion Gap 11 L BUN 8 L Creatinine 0.92 Estim Creat Clear Calc 81.5 Estimated GFR > 60 POC Glucose Random Glucose 245 H Estimat Average Glucose 255 Hemoglobin A1c % 10.5 Osmolality Calcium 8.2 L D Magnesium Iron 67 TIBC 257 % Saturation 26 Unsat Iron Binding 190 Ferritin 1209 H Total Bilirubin 1.6 H Direct Bilirubin AST 41 H ALT 61 H Alkaline Phosphatase 85 Ammonia Lactate Dehydrogenase Troponin I High Sens C-Reactive Protein Total Protein 5.9 L Albumin 3.3 L Vitamin B12 Folate Procalcitonin TSH 2.25 Urine Osmolality Ur Random Sodium Ur Random Potassium Ur Random Chloride CSF Tube Number CSF Volume CSF Appearance CSF Color CSF WBC CSF RBC CSF Neutrophils CSF Lymphocytes CSF Monocytes % CSF Other Cells % Respiratory Panel Solorzano T.pallidum Ab (EIA) Adenovirus (Rapid PCR) B.pert (TEM-PCR) B.parapertussis DNA PCR C. pneumoniae DNA (PCR) Coronavirus OC43 (PCR) Coronavirus HKU1 (PCR) Coronavirus 229E (PCR) Coronavirus NL63 (PCR) Hep Bs Antigen Hep Bs Antibody Hep B Core Total Ab Hepatitis C Ab (EIA) HIV 1&2 Ab/P24 Ag 4thGn Human Metapneumovir PCR Influenza A (RT-PCR) Influenza B (RT-PCR) M. pneumoniae (PCR) Parainfluenza 1 (PCR) Parainfluenza 2 (PCR) Parainfluenza 3 (PCR) Parainfluenza 4 (PCR) RSV (PCR) Entero/Rhino (PCR) SARS-CoV-2 RNA (RT-PCR) Blood Type Antibody Screen Direct Antiglob Test MACKENZIE, Polyspecific 03/16/21 03/16/21 03/16/21 08:09 08:09 08:09 WBC RBC Hgb Hct MCV MCH MCHC RDW Plt Count MPV Immature Gran % (Auto) Neut % (Auto) Lymph % (Auto) [place] % (Auto) Eos % (Auto) Baso % (Auto) Lymph # (Auto) [place] # (Auto) Eos # (Auto) Baso # (Auto) Abs Immat Gran (auto) Absolute Neuts (auto) Absolute Nucleated RBC Nucleated RBC % (auto) Absolute Retic Percent Retic Immature Retic Fraction Retic Hgb Equivalent Sodium Potassium Chloride Carbon Dioxide Anion Gap BUN Creatinine Estim Creat Clear Calc Estimated GFR POC Glucose Random Glucose Estimat Average Glucose Hemoglobin A1c % Osmolality Calcium Magnesium Iron TIBC % Saturation Unsat Iron Binding Ferritin Total Bilirubin Direct Bilirubin AST ALT Alkaline Phosphatase Ammonia 33 Lactate Dehydrogenase Troponin I High Sens C-Reactive Protein Total Protein Albumin Vitamin B12 585 Folate 10.5 Procalcitonin TSH Urine Osmolality Ur Random Sodium Ur Random Potassium Ur Random Chloride CSF Tube Number CSF Volume CSF Appearance CSF Color CSF WBC CSF RBC CSF Neutrophils CSF Lymphocytes CSF Monocytes % CSF Other Cells % Respiratory Panel Solorzano T.pallidum Ab (EIA) Nonreactive Adenovirus (Rapid PCR) B.pert (TEM-PCR) B.parapertussis DNA PCR C. pneumoniae DNA (PCR) Coronavirus OC43 (PCR) Coronavirus HKU1 (PCR) Coronavirus 229E (PCR) Coronavirus NL63 (PCR) Hep Bs Antigen Hep Bs Antibody Hep B Core Total Ab Hepatitis C Ab (EIA) HIV 1&2 Ab/P24 Ag 4thGn Human Metapneumovir PCR Influenza A (RT-PCR) Influenza B (RT-PCR) M. pneumoniae (PCR) Parainfluenza 1 (PCR) Parainfluenza 2 (PCR) Parainfluenza 3 (PCR) Parainfluenza 4 (PCR) RSV (PCR) Entero/Rhino (PCR) SARS-CoV-2 RNA (RT-PCR) Blood Type Antibody Screen Direct Antiglob Test MACKENZIE, Polyspecific 03/16/21 03/16/21 03/16/21 08:09 08:09 08:09 WBC RBC Hgb Hct MCV MCH MCHC RDW Plt Count MPV Immature Gran % (Auto) Neut % (Auto) Lymph % (Auto) [place] % (Auto) Eos % (Auto) Baso % (Auto) Lymph # (Auto) [place] # (Auto) Eos # (Auto) Baso # (Auto) Abs Immat Gran (auto) Absolute Neuts (auto) Absolute Nucleated RBC Nucleated RBC % (auto) Absolute Retic 0.193 H Percent Retic 7.7 H Immature Retic Fraction 26.1 H Retic Hgb Equivalent 38.8 H Sodium Potassium Chloride Carbon Dioxide Anion Gap BUN Creatinine Estim Creat Clear Calc Estimated GFR POC Glucose Random Glucose Estimat Average Glucose Hemoglobin A1c % Osmolality Calcium Magnesium Iron TIBC % Saturation Unsat Iron Binding Ferritin Total Bilirubin Direct Bilirubin AST ALT Alkaline Phosphatase Ammonia Lactate Dehydrogenase Troponin I High Sens 16.4 D C-Reactive Protein Total Protein Albumin Vitamin B12 Folate Procalcitonin TSH Urine Osmolality Ur Random Sodium Ur Random Potassium Ur Random Chloride CSF Tube Number CSF Volume CSF Appearance CSF Color CSF WBC CSF RBC CSF Neutrophils CSF Lymphocytes CSF Monocytes % CSF Other Cells % Respiratory Panel Solorzano T.pallidum Ab (EIA) Adenovirus (Rapid PCR) B.pert (TEM-PCR) B.parapertussis DNA PCR C. pneumoniae DNA (PCR) Coronavirus OC43 (PCR) Coronavirus HKU1 (PCR) Coronavirus 229E (PCR) Coronavirus NL63 (PCR) Hep Bs Antigen Negative Hep Bs Antibody REACTIVE Hep B Core Total Ab Nonreactive Hepatitis C Ab (EIA) Reactive H HIV 1&2 Ab/P24 Ag 4thGn Nonreactive Human Metapneumovir PCR Influenza A (RT-PCR) Influenza B (RT-PCR) M. pneumoniae (PCR) Parainfluenza 1 (PCR) Parainfluenza 2 (PCR) Parainfluenza 3 (PCR) Parainfluenza 4 (PCR) RSV (PCR) Entero/Rhino (PCR) SARS-CoV-2 RNA (RT-PCR) Blood Type Antibody Screen Direct Antiglob Test MACKENZIE, Polyspecific 03/16/21 03/16/21 03/16/21 08:09 08:09 08:09 WBC RBC Hgb Hct MCV MCH MCHC RDW Plt Count MPV Immature Gran % (Auto) Neut % (Auto) Lymph % (Auto) [place] % (Auto) Eos % (Auto) Baso % (Auto) Lymph # (Auto) [place] # (Auto) Eos # (Auto) Baso # (Auto) Abs Immat Gran (auto) Absolute Neuts (auto) Absolute Nucleated RBC Nucleated RBC % (auto) Absolute Retic Percent Retic Immature Retic Fraction Retic Hgb Equivalent Sodium Potassium Chloride Carbon Dioxide Anion Gap BUN Creatinine Estim Creat Clear Calc Estimated GFR POC Glucose Random Glucose Estimat Average Glucose Hemoglobin A1c % Osmolality Calcium Magnesium 1.6 Iron TIBC % Saturation Unsat Iron Binding Ferritin Total Bilirubin Direct Bilirubin AST ALT Alkaline Phosphatase Ammonia Lactate Dehydrogenase 296 H Troponin I High Sens C-Reactive Protein 1.39 H Total Protein Albumin Vitamin B12 Folate Procalcitonin 0.04 TSH Urine Osmolality Ur Random Sodium Ur Random Potassium Ur Random Chloride CSF Tube Number CSF Volume CSF Appearance CSF Color CSF WBC CSF RBC CSF Neutrophils CSF Lymphocytes CSF Monocytes % CSF Other Cells % Respiratory Panel Solorzano T.pallidum Ab (EIA) Adenovirus (Rapid PCR) B.pert (TEM-PCR) B.parapertussis DNA PCR C. pneumoniae DNA (PCR) Coronavirus OC43 (PCR) Coronavirus HKU1 (PCR) Coronavirus 229E (PCR) Coronavirus NL63 (PCR) Hep Bs Antigen Hep Bs Antibody Hep B Core Total Ab Hepatitis C Ab (EIA) HIV 1&2 Ab/P24 Ag 4thGn Human Metapneumovir PCR Influenza A (RT-PCR) Influenza B (RT-PCR) M. pneumoniae (PCR) Parainfluenza 1 (PCR) Parainfluenza 2 (PCR) Parainfluenza 3 (PCR) Parainfluenza 4 (PCR) RSV (PCR) Entero/Rhino (PCR) SARS-CoV-2 RNA (RT-PCR) Blood Type Antibody Screen Direct Antiglob Test MACKENZIE, Polyspecific 03/16/21 03/16/21 03/16/21 08:11 11:43 12:22 WBC RBC Hgb Hct MCV MCH MCHC RDW Plt Count MPV Immature Gran % (Auto) Neut % (Auto) Lymph % (Auto) [place] % (Auto) Eos % (Auto) Baso % (Auto) Lymph # (Auto) [place] # (Auto) Eos # (Auto) Baso # (Auto) Abs Immat Gran (auto) Absolute Neuts (auto) Absolute Nucleated RBC Nucleated RBC % (auto) Absolute Retic Percent Retic Immature Retic Fraction Retic Hgb Equivalent Sodium Potassium Chloride Carbon Dioxide Anion Gap BUN Creatinine Estim Creat Clear Calc Estimated GFR POC Glucose 145 H Random Glucose Estimat Average Glucose Hemoglobin A1c % Osmolality Calcium Magnesium Iron TIBC % Saturation Unsat Iron Binding Ferritin Total Bilirubin Direct Bilirubin AST ALT Alkaline Phosphatase Ammonia Lactate Dehydrogenase Troponin I High Sens 14.2 C-Reactive Protein Total Protein Albumin Vitamin B12 Folate Procalcitonin TSH Urine Osmolality Ur Random Sodium Ur Random Potassium Ur Random Chloride CSF Tube Number CSF Volume CSF Appearance CSF Color CSF WBC CSF RBC CSF Neutrophils CSF Lymphocytes CSF Monocytes % CSF Other Cells % Respiratory Panel Solorzano T.pallidum Ab (EIA) Adenovirus (Rapid PCR) B.pert (TEM-PCR) B.parapertussis DNA PCR C. pneumoniae DNA (PCR) Coronavirus OC43 (PCR) Coronavirus HKU1 (PCR) Coronavirus 229E (PCR) Coronavirus NL63 (PCR) Hep Bs Antigen Cancelled Hep Bs Antibody Cancelled Hep B Core Total Ab Cancelled Hepatitis C Ab (EIA) Cancelled HIV 1&2 Ab/P24 Ag 4thGn Human Metapneumovir PCR Influenza A (RT-PCR) Influenza B (RT-PCR) M. pneumoniae (PCR) Parainfluenza 1 (PCR) Parainfluenza 2 (PCR) Parainfluenza 3 (PCR) Parainfluenza 4 (PCR) RSV (PCR) Entero/Rhino (PCR) SARS-CoV-2 RNA (RT-PCR) Blood Type Antibody Screen Direct Antiglob Test MACKENZIE, Polyspecific 03/16/21 03/16/21 03/17/21 12:35 16:49 06:16 WBC 8.4 RBC 2.32 L Hgb 7.7 L Hct 23.1 L MCV 99.6 H MCH 33.2 H MCHC 33.3 RDW 14.7 Plt Count 304 MPV 8.8 L Immature Gran % (Auto) 1.8 H Neut % (Auto) 57.0 Lymph % (Auto) 30.5 [place] % (Auto) 8.4 Eos % (Auto) 1.7 Baso % (Auto) 0.6 Lymph # (Auto) 2.6 [place] # (Auto) 0.7 Eos # (Auto) 0.1 Baso # (Auto) 0.1 Abs Immat Gran (auto) 0.15 H Absolute Neuts (auto) 4.8 Absolute Nucleated RBC 0.000 Nucleated RBC % (auto) 0.0 Absolute Retic Percent Retic Immature Retic Fraction Retic Hgb Equivalent Sodium Potassium Chloride Carbon Dioxide Anion Gap BUN Creatinine Estim Creat Clear Calc Estimated GFR POC Glucose 182 H Random Glucose Estimat Average Glucose Hemoglobin A1c % Osmolality Calcium Magnesium Iron TIBC % Saturation Unsat Iron Binding Ferritin Total Bilirubin Direct Bilirubin AST ALT Alkaline Phosphatase Ammonia Lactate Dehydrogenase Troponin I High Sens C-Reactive Protein Total Protein Albumin Vitamin B12 Folate Procalcitonin TSH Urine Osmolality Ur Random Sodium Ur Random Potassium Ur Random Chloride CSF Tube Number CSF Volume CSF Appearance CSF Color CSF WBC CSF RBC CSF Neutrophils CSF Lymphocytes CSF Monocytes % CSF Other Cells % Respiratory Panel Solorzano See Note T.pallidum Ab (EIA) Adenovirus (Rapid PCR) Not Detected B.pert (TEM-PCR) Not Detected B.parapertussis DNA PCR Not Detected C. pneumoniae DNA (PCR) Not Detected Coronavirus OC43 (PCR) Not Detected Coronavirus HKU1 (PCR) Not Detected Coronavirus 229E (PCR) Not Detected Coronavirus NL63 (PCR) Not Detected Hep Bs Antigen Hep Bs Antibody Hep B Core Total Ab Hepatitis C Ab (EIA) HIV 1&2 Ab/P24 Ag 4thGn Human Metapneumovir PCR Not Detected Influenza A (RT-PCR) Not Detected Influenza B (RT-PCR) Not Detected M. pneumoniae (PCR) Not Detected Parainfluenza 1 (PCR) Not Detected Parainfluenza 2 (PCR) Not Detected Parainfluenza 3 (PCR) Not Detected Parainfluenza 4 (PCR) Not Detected RSV (PCR) Not Detected Entero/Rhino (PCR) Not Detected SARS-CoV-2 RNA (RT-PCR) Not Detected Blood Type Antibody Screen Direct Antiglob Test MACKENZIE, Polyspecific 03/17/21 03/17/21 03/17/21 06:16 07:56 08:10 WBC RBC Hgb Hct MCV MCH MCHC RDW Plt Count MPV Immature Gran % (Auto) Neut % (Auto) Lymph % (Auto) [place] % (Auto) Eos % (Auto) Baso % (Auto) Lymph # (Auto) [place] # (Auto) Eos # (Auto) Baso # (Auto) Abs Immat Gran (auto) Absolute Neuts (auto) Absolute Nucleated RBC Nucleated RBC % (auto) Absolute Retic Percent Retic Immature Retic Fraction Retic Hgb Equivalent Sodium 138 Potassium 3.6 Chloride 108 Carbon Dioxide 19 L Anion Gap 15 BUN 11 Creatinine 1.06 Estim Creat Clear Calc 70.8 Estimated GFR > 60 POC Glucose 178 H Random Glucose 143 H D Estimat Average Glucose Hemoglobin A1c % Osmolality Calcium 8.0 L Magnesium Iron TIBC % Saturation Unsat Iron Binding Ferritin Total Bilirubin 0.6 Direct Bilirubin 0.4 AST ALT Alkaline Phosphatase Ammonia Lactate Dehydrogenase Troponin I High Sens C-Reactive Protein Total Protein Albumin Vitamin B12 Folate Procalcitonin TSH Urine Osmolality Ur Random Sodium Ur Random Potassium Ur Random Chloride CSF Tube Number CSF Volume CSF Appearance CSF Color CSF WBC CSF RBC CSF Neutrophils CSF Lymphocytes CSF Monocytes % CSF Other Cells % Respiratory Panel Solorzano T.pallidum Ab (EIA) Adenovirus (Rapid PCR) B.pert (TEM-PCR) B.parapertussis DNA PCR C. pneumoniae DNA (PCR) Coronavirus OC43 (PCR) Coronavirus HKU1 (PCR) Coronavirus 229E (PCR) Coronavirus NL63 (PCR) Hep Bs Antigen Hep Bs Antibody Hep B Core Total Ab Hepatitis C Ab (EIA) HIV 1&2 Ab/P24 Ag 4thGn Human Metapneumovir PCR Influenza A (RT-PCR) Influenza B (RT-PCR) M. pneumoniae (PCR) Parainfluenza 1 (PCR) Parainfluenza 2 (PCR) Parainfluenza 3 (PCR) Parainfluenza 4 (PCR) RSV (PCR) Entero/Rhino (PCR) SARS-CoV-2 RNA (RT-PCR) Blood Type O Positive Antibody Screen NEGATIVE Direct Antiglob Test MACKENZIE, Polyspecific 03/17/21 03/17/21 08:10 11:41 WBC RBC Hgb Hct MCV MCH MCHC RDW Plt Count MPV Immature Gran % (Auto) Neut % (Auto) Lymph % (Auto) [place] % (Auto) Eos % (Auto) Baso % (Auto) Lymph # (Auto) [place] # (Auto) Eos # (Auto) Baso # (Auto) Abs Immat Gran (auto) Absolute Neuts (auto) Absolute Nucleated RBC Nucleated RBC % (auto) Absolute Retic Percent Retic Immature Retic Fraction Retic Hgb Equivalent Sodium Potassium Chloride Carbon Dioxide Anion Gap BUN Creatinine Estim Creat Clear Calc Estimated GFR POC Glucose 108 Random Glucose Estimat Average Glucose Hemoglobin A1c % Osmolality Calcium Magnesium Iron TIBC % Saturation Unsat Iron Binding Ferritin Total Bilirubin Direct Bilirubin AST ALT Alkaline Phosphatase Ammonia Lactate Dehydrogenase Troponin I High Sens C-Reactive Protein Total Protein Albumin Vitamin B12 Folate Procalcitonin TSH Urine Osmolality Ur Random Sodium Ur Random Potassium Ur Random Chloride CSF Tube Number CSF Volume CSF Appearance CSF Color CSF WBC CSF RBC CSF Neutrophils CSF Lymphocytes CSF Monocytes % CSF Other Cells % Respiratory Panel Solorzano T.pallidum Ab (EIA) Adenovirus (Rapid PCR) B.pert (TEM-PCR) B.parapertussis DNA PCR C. pneumoniae DNA (PCR) Coronavirus OC43 (PCR) Coronavirus HKU1 (PCR) Coronavirus 229E (PCR) Coronavirus NL63 (PCR) Hep Bs Antigen Hep Bs Antibody Hep B Core Total Ab Hepatitis C Ab (EIA) HIV 1&2 Ab/P24 Ag 4thGn Human Metapneumovir PCR Influenza A (RT-PCR) Influenza B (RT-PCR) M. pneumoniae (PCR) Parainfluenza 1 (PCR) Parainfluenza 2 (PCR) Parainfluenza 3 (PCR) Parainfluenza 4 (PCR) RSV (PCR) Entero/Rhino (PCR) SARS-CoV-2 RNA (RT-PCR) Blood Type Antibody Screen Direct Antiglob Test NEGATIVE MACKENZIE, Polyspecific NEGATIVE Imaging Radiology Impressions: ITS Impressions Head CT 03/15/21 10:24 IMPRESSION: No acute intracranial process seen. Chest X-Ray 03/15/21 10:25 IMPRESSION: Unremarkable examination. Abdomen/Pelvis CT 03/15/21 14:28 IMPRESSION: No acute intra-abdominal process seen. Bilateral renal cysts Lumbar Puncture Fluoroscopy 03/15/21 18:10 IMPRESSION: Fluoroscopy-guided lumbar puncture. Mental Status Exam Mental Status Exam Patient Appearance: Appropriate Patient Orientation: Person, Place, Time and Situation Level of Consciousness: Awake and Alert Patient Behavior: Guarded Mood Description: Hostile Affect Description: Hostile Speech Pattern: Clear Thought Content: positive for [place] Judgement: Fair Medications Medications Current Medications Generic Name Dose Route Start Last Admin Trade Name Freq PRN Reason Stop Dose Admin Acetaminophen 650 mg 03/15/21 20:42 Acetaminophen 325 Mg Tablet PO Q6H PRN Pain, Mild (Pain Scale 1-3) Amitriptyline HCl 100 mg 03/15/21 21:00 03/16/21 19:44 Amitriptyline Hcl 50 Mg Tablet PO 100 mg BEDTIME [facility] Administration Amlodipine Besylate 10 mg 03/16/21 09:00 Amlodipine Besylate 10 Mg Tablet PO DAILY [facility] Protocol Carvedilol 6.25 mg 03/15/21 21:00 03/16/21 02:24 Carvedilol 6.25 Mg Tablet PO Not Given BID [facility] Protocol Clonazepam 1 mg 03/15/21 21:00 03/17/21 08:28 Clonazepam 1 Mg Tablet PO 1 mg TID [facility] Administration Enoxaparin Sodium 40 mg 03/16/21 18:30 03/16/21 18:32 Enoxaparin Sodium 40 Mg/0.4 Ml Syringe SUBCUT 40 mg Q24H [facility] Administration Fluoxetine HCl 20 mg 03/16/21 09:00 03/17/21 08:28 Fluoxetine Hcl 20 Mg Capsule PO 20 mg DAILY [facility] Administration Sodium Chloride 1,000 mls @ 100 mls/hr 03/15/21 20:45 03/17/21 11:56 Ns IVCONT Infused .Q10H [facility] Infusion Thiamine HCl 500 mg/ Sodium 105 mls @ 210 mls/hr 03/16/21 18:15 03/17/21 12:26 Chloride IV Infused Q8H [facility] Infusion Insulin Human Lispro 0 unit 03/16/21 07:30 03/17/21 11:57 Insulin Lispro 100 Unit/Ml 3 Ml Vial SUBCUT Not Given QIDACHS [facility] Protocol Lidocaine 1 patch 03/16/21 18:30 03/17/21 08:27 Lidocaine 4 % Patch Adh..Patch TRANSDERMA 1 patch DAILY [facility] Administration Protocol Morphine Sulfate 2 mg 03/16/21 11:33 03/17/21 12:36 Morphine Sulfate 2 Mg/Ml Cartridge IVPUSH 2 mg Q2H PRN Administration Pain, Severe (Pain Scale 7-10) Naproxen 500 mg 03/16/21 08:30 03/17/21 08:28 Naproxen 500 Mg Tablet PO 500 mg BIDPC [facility] Administration Omeprazole 40 mg 03/16/21 06:30 03/17/21 06:12 Omeprazole 40 Mg Capsule. PO 40 mg BID@0630,1630 [facility] Administration Pharmacy Consult 1 each 03/15/21 10:24 Consult Rx Perform Med Rec MISCELLANE ONCE PRN Consult order Quetiapine Fumarate 50 mg 03/15/21 21:00 03/16/21 19:44 Quetiapine Fumarate 50 Mg Tablet PO 50 mg BEDTIME [facility] Administration Sodium Chloride 3 ml 03/16/21 00:00 03/17/21 08:29 0.9 % Sodium Chloride Flush 3 Ml Syringe IVFLUSH Not Given QSHIFT [facility] Allergies Allergies Allergy/AdvReac Type Severity Reaction Status Date / Time fish derived [FISH] Allergy Unknown UNKNOWN Unverified 08/18/20 18:30 turkey [TURKEY] Allergy Unknown UNK Unverified 08/18/20 18:30 lisinopril AdvReac Swelling Verified 03/16/21 01:39 Assessment & Plan Assessment & Plan (1) Encephalopathy: Status: Acute Code(s): G93.40 - Encephalopathy, unspecified (2) Schizoaffective disorder, bipolar type: Status: Acute Code(s): F25.0 - Schizoaffective disorder, bipolar type Recommendations: * Seroquel dose decreased in ED from 300mg to 50mg QHS. Monitor patient for recurrence of psychiatric sx. Will likely require increase and/or PRNs. * Concern regarding patient's ability to care for himself in the community based on presentation to [facility] and collateral obtained. Greater than 50% of the session was spent on counseling and/or coordination of care
--- NOTE | 2021-03-17 15:33 | PM.HEMONCCN ---
Subjective - Subjective Chief complaint: Consult for: Thee negative hemolytic anemia. Patient: new to practice Consult date: 03/17/21 Requesting Physician: Marialuisa. Primary Care Provider: Unknown Physician Medical Summary: DIAGNOSIS: THEE NEGATIVE HEMOLYTIC ANEMIA. HPI - Consult Narrative Reason for consult: Consult for: Hemolytic anemia. Narrative: Mario Patiño is a pleasant 60 year old Setswana-speaking gentleman, who presented to the hospital with a chief complaint of confusion. Patient is a poor historian. As per family, he has had memory impairment. In addition, he has been having unsteady gait, and dizziness. While he was walking, he was leaning on to the family member but did not fall. Patient c/o nausea vomiting and diarrhea, denies abdominal pain. He mentioned that he has pain all over his body. He does have a history of schizophrenia. Mental confusion appears to be his baseline. He has no recollection of his recent admission to [facility] with mental status changes including the ICU stay. Review of systems: Given poor historian unable to obtain clear review of systems, patient mentions yes to most of the questions asked. His workup was negative for any infection. CT head negative, lumbar puncture was negative. No meningeal signs. Serial hemoglobin since hospitalization: 9.4/8.3/7.7 today. Hct: //. MCV: 99.6. Retic: 7.7. PT: 11.8 with INR 1. PTT 34.8. Mackenzie negative. Past medical history: Hypertension, GERD, anxiety, depression. Review of Systems - Constitutional Reports system reviewed and no additional complaints, except as documented, Reports lack of energy, Reports malaise - Eyes Reports system reviewed and no additional complaints, except as documented, Denies blurry vision - ENT Reports system reviewed and no additional complaints, except as documented - Cardiovascular Reports system reviewed and no additional complaints, except as documented, Denies chest pain at rest - Respiratory Reports no additional respiratory complaints, Denies chest congestion - Gastrointestinal Reports system reviewed and no additional complaints, except as documented - Genitourinary Genitourinary: Reports no additional male genitourinary complaints, Denies blood in urine - Musculoskeletal Reports system reviewed and no additional complaints, except as documented, Denies back pain - Integumentary/Breasts Skin/Breast: Reports no additional skin complaints, Denies bleeding lesions - Neurologic Reports system reviewed and no additional complaints, except as documented - Psychiatric Reports system reviewed and no additional complaints, except as documented, Reports anxiety - Endocrine Reports no additional endocrine complaints, Denies cold intolerance, Denies excessive sweating - Hematologic/Lymphatic Reports system reviewed and no additional complaints, except as documented, Denies easy bruising - Allergic/Immunologic Reports system reviewed and no additional complaints, except as documented, Denies GI upset with certain foods Oncology Screenings - ECOG Performance Status ECOG Performance Status: 1 [facility] Medical History: Medical History (Last Updated 03/16/21 @ 20:07 by Lisseth Villarreal RN) Diabetes Hyperkalemia Hypertension Schizo affective schizophrenia Substance abuse Functional capacity: uses cane/walker Patient : No Social History: Social History Living Situation History: Household Members: None Housing: Apartment Do you presently have visiting nurse or other home services: No Tobacco History: Smoking Status: Never smoker Substance Use History: Use of substances other than those prescribed or required for medical reasons: Yes Substance Use Type: Marijuana Substance Use Frequency: Daily Last Used Substance: Days (ago) Currently Displaying Signs/Symptoms of Drug Intoxication Withdrawal: No Domestic Abuse History: Have you been hit, kicked, punched, or otherwise hurt by someone within the past year? If so, by whom?: No Do you feel safe in your current relationship?: No Current Relationship Is there a partner from a previous relationship who is making you feel unsafe now?: No Are you made to feel afraid or neglected: No Advance Directives: Advance Directives: No Advance Directives Information Provided: No Homicidal Assessment: Do you have thoughts of harming others: None Do you have a plan to hurt others: No Plan Nutrition Assessment: Patient : No Occupation Assessmet: service: No Current occupational status: unemployed Smoking status: Never smoker Home Medications and Allergies Current Medications: Current Medications Generic Name Dose Route Start Last Admin Trade Name Freq PRN Reason Stop Dose Admin Acetaminophen 650 mg 03/15/21 20:42 Acetaminophen 325 Mg Tablet PO Q6H PRN Pain, Mild (Pain Scale 1-3) Amitriptyline HCl 100 mg 03/15/21 21:00 03/16/21 19:44 Amitriptyline Hcl 50 Mg Tablet PO 100 mg BEDTIME [facility] Administration Amlodipine Besylate 10 mg 03/16/21 09:00 Amlodipine Besylate 10 Mg Tablet PO DAILY [facility] Protocol Carvedilol 6.25 mg 03/15/21 21:00 03/16/21 02:24 Carvedilol 6.25 Mg Tablet PO Not Given BID [facility] Protocol Clonazepam 1 mg 03/15/21 21:00 03/17/21 08:28 Clonazepam 1 Mg Tablet PO 1 mg TID [facility] Administration Enoxaparin Sodium 40 mg 03/16/21 18:30 03/16/21 18:32 Enoxaparin Sodium 40 Mg/0.4 Ml Syringe SUBCUT 40 mg Q24H [facility] Administration Fluoxetine HCl 20 mg 03/16/21 09:00 03/17/21 08:28 Fluoxetine Hcl 20 Mg Capsule PO 20 mg DAILY [facility] Administration Sodium Chloride 1,000 mls @ 100 mls/hr 03/15/21 20:45 03/17/21 11:56 Ns IVCONT Infused .Q10H [facility] Infusion Thiamine HCl 500 mg/ Sodium 105 mls @ 210 mls/hr 03/16/21 18:15 03/17/21 12:26 Chloride IV Infused Q8H [facility] Infusion Insulin Human Lispro 0 unit 03/16/21 07:30 03/17/21 11:57 Insulin Lispro 100 Unit/Ml 3 Ml Vial SUBCUT Not Given QIDACHS [facility] Protocol Lidocaine 1 patch 03/16/21 18:30 03/17/21 08:27 Lidocaine 4 % Patch Adh..Patch TRANSDERMA 1 patch DAILY [facility] Administration Protocol Morphine Sulfate 2 mg 03/16/21 11:33 03/17/21 12:36 Morphine Sulfate 2 Mg/Ml Cartridge IVPUSH 2 mg Q2H PRN Administration Pain, Severe (Pain Scale 7-10) Naproxen 500 mg 03/16/21 08:30 03/17/21 08:28 Naproxen 500 Mg Tablet PO 500 mg BIDPC [facility] Administration Omeprazole 40 mg 03/16/21 06:30 03/17/21 06:12 Omeprazole 40 Mg Capsule. PO 40 mg BID@0630,1630 [facility] Administration Pharmacy Consult 1 each 03/15/21 10:24 Consult Rx Perform Med Rec MISCELLANE ONCE PRN Consult order Quetiapine Fumarate 50 mg 03/15/21 21:00 03/16/21 19:44 Quetiapine Fumarate 50 Mg Tablet PO 50 mg BEDTIME [facility] Administration Sodium Chloride 3 ml 03/16/21 00:00 03/17/21 08:29 0.9 % Sodium Chloride Flush 3 Ml Syringe IVFLUSH Not Given QSHIFT [facility] Home Medications Medication Instructions Recorded Confirmed Type amitriptyline 100 mg PO BEDTIME 03/15/21 03/15/21 History amlodipine 10 mg PO DAILY 03/15/21 03/15/21 History carvedilol 6.25 mg PO BID 03/15/21 03/15/21 History clonazepam 1 mg PO TID 03/15/21 03/15/21 History fluoxetine 20 mg PO DAILY 03/15/21 03/15/21 History naproxen 500 mg PO BIDPC 03/15/21 03/15/21 History omeprazole 40 mg PO BID 03/15/21 03/15/21 History quetiapine 300 mg PO BEDTIME 03/15/21 03/15/21 History Allergies Allergy/AdvReac Type Severity Reaction Status Date / Time fish derived [FISH] Allergy Unknown UNKNOWN Unverified 08/18/20 18:30 turkey [TURKEY] Allergy Unknown UNK Unverified 08/18/20 18:30 lisinopril AdvReac Swelling Verified 03/16/21 01:39 Physical Exam Vital signs: Vital Signs Temp 97.5 F 03/17/21 12:00 Pulse 90 03/17/21 12:00 Resp 16 03/17/21 12:00 BP 112/71 03/17/21 12:00 Pulse Ox 98 03/17/21 12:00 Intake & Output 03/16/21 03/17/21 03/17/21 18:59 06:59 18:59 Intake Total 1520 / 3815 2295 / 3815 2505 / 2505 Output Total 2 / 802 800 / 802 Balance 1518 / 3013 1495 / 3013 2505 / 2505 Urine Output (Average ml/kg/hr) 0.00 0.82 0.82 Intake: Intake, Oral Amount 520 / 1660 1140 / 1660 1400 / 1400 Intake, IV Amount 1000 / 2155 1155 / 2155 1105 / 1105 Thiamine HCL 500 mg In 0.9 % 210 / 210 105 / 105 Sodium Chloride 100 ml @ 210 mls/hr IV Q8H [facility] Rx#: [id number] 0.9 % Sodium Chloride 1,000 ml 1000 / 1945 945 / 1945 1000 / 1000 @ 100 mls/hr IVCONT .Q10H [facility] Rx#:[id number] Output: Output, Urine Amount 80 800 / 802 Other: Breakfast % Eaten 100% Lunch % Eaten 100% 100% Dinner % Eaten 75% Number of Unmeasured Voids 3 Urine Urinal Urine Color Yellow Yellow Weight 81.7 kg - Constitutional Present: mild distress - Routine HEENT Exam Head: Present: normal inspection ENT: Present: mucous membranes moist - Routine Neck Exam Present: supple - Routine Respiratory Exam Present: CTAB - Routine Cardiovascular Exam Cardiovascular: Present: RRR, S1, S2 - Routine Abdominal Exam Present: soft, nontender - Routine Rectal Exam Patient deferred: digital exam - Routine Skin Exam Present: intact - Routine Neurological Exam Present: alert, oriented X3, abnormal gait - Detailed Neurological Exam: Coma Scale Eye Opening: Spontaneous (4) Verbal Response: Oriented (5) Motor Response: Obeys commands (6) Bruno Coma Scale Total: 15 Hem/Onc Consult Result - Labs CBC & Chem 7: 03/20/21 09:25 03/20/21 09:25 Labs: Short CBC 03/17/21 Range/Units 06:16 WBC 8.4 (4.8-10.8) X10*3/uL Hgb 7.7 L (14.0-18.0) g/dl Hct 23.1 L (42-52) % Plt Count 304 (160-400) X10*3/uL BMP 03/17/21 06:16 Sodium 138 Potassium 3.6 Chloride 108 Carbon Dioxide 19 L BUN 11 Creatinine 1.06 Calcium 8.0 L Liver Function 03/17/21 Range/Units 06:16 Total Bilirubin 0.6 (0.0-1.0) mg/dL Direct Bilirubin 0.4 (0.0-0.5) mg/dL Assessment and Plan (1) Hemolytic anemia Status: Acute This is a 60-year-old gentleman who presented with mental confusion. He does have a history of hepatitis-C and alcoholism. He has been seen by Psychiatry. Diagnosis of schizophrenia has been made. His case consultant, Martínez reports he has known patient for over 10 years and over the last 3- 4 years his health and memory have deteriorated significantly. He cited examples of having to find him because he was lost and didn't know how to get back home (he was actually around the corner from his apt). he also reported getting called by a [employer] director business development stating that patient had been sitting on the bus for hours and didn't know where he was supposed to be going. Martínez reports that patient is also a [facility] client and has a [facility] worker named Marlon Castro ([phone]). Martínez reports that patient recently had services increased, but that he has been advocating for sometime for patient to be in some type of residential setting where he is supervised and medications are administered. Workup was non revealing for any evidence of infection nor neurological event. He has been noted to be anemic: Hemoglobin down to 7.7. Serial hemoglobin since hospitalization: 9.4/8.3/7.7 today. Hct: //. MCV: 99.6. Retic: 7.7. PT: 11.8 with INR 1. PTT 34.8. MACKENZIE negative. Thee negative HEMOLYTIC ANEMIA: Could be on the basis of his liver disease. Drug-induced, Versus an infectious process. Differential diagnosis: DIC: DIC screen: PT 11.1, INR 1, PTT 34.8, fibrinogen 604, D-dimer 618. Workup has been initiated. PLAN: Can give him a trial of steroid therapy, prednisone 60 mg orally daily. Will continue for 2-3 weeks, and follow labs twice weekly. Can then start a very slow taper. I would recommend to transfuse with least incompatible blood. Will follow his hematocrit carefully over time. Thanks, CC: Unknown.
[2021-03-17 15:59] VITALS: BP 101/65; PULSE 108; RESP 16; TEMP 36.8; O2SAT 98
[2021-03-17 16:33] LABS: Glucose, Whole Blood 200 mg/dL (60-115)
[2021-03-17 16:38] LABS: Lactate Dehydrogenase 301 U/L (118-273)
[2021-03-17] MEDS: Enoxaparin Sodium 40 MG/0.4 ML SYRINGE SUBCUT (18:30)
[2021-03-17 19:21] LABS: Fibrinogen 604 MG/DL (259-690)
[2021-03-17 19:24] LABS: D Dimer 618 NG/ML
[2021-03-17 19:37] VITALS: BP 114/68; PULSE 101; RESP 15; TEMP 36.4; O2SAT 100
[2021-03-17 20:31] LABS: Glucose, Whole Blood 84 mg/dL (60-115)
[2021-03-17] MEDS: Amitriptyline HCl 50 MG TABLET 100 MG PO (20:36)
[2021-03-17] MEDS: QUEtiapine Fumarate 50 MG TABLET PO (20:36)
[2021-03-17 23:22] VITALS: BP 103/64; PULSE 112; RESP 20; TEMP 36.8; O2SAT 100
[2021-03-18] MEDS: 0.9 % Sodium Chloride Flush 3 ML SYRINGE IVFLUSH ×4 (00:07→22:48)
[2021-03-18] MEDS: Thiamine HCL 500 MG in 0.9 % Sodium Chloride 100 ML 210 MG IV ×3 (02:54→18:41)
[2021-03-18] MEDS: Morphine Sulfate 2 MG/ML CARTRIDGE IVPUSH ×5 (03:43→21:12)
[2021-03-18 03:59] VITALS: BP 117/62; PULSE 110; RESP 20; TEMP 36.7; O2SAT 100
[2021-03-18] MEDS: Omeprazole 40 MG CAPSULE.DR PO ×2 (06:32→16:48)
[2021-03-18 07:01] LABS: MANUAL DIFF FLAG NO
[2021-03-18 07:19] LABS: Basophils Percent Auto 0.4 % (0-2); Eosinophils Absolute Auto 0.2 X10*3/uL (0.0-0.4); Eosinophils Percent Auto 1.8 % (0-4); Hematocrit 22.6 % (42-52); Hemoglobin 7.5 g/dl (14.0-18.0); Imm Gran Abs Auto 0.23 X10*3/uL (0.00-0.03); Imm Gran Pct Auto 2.4 % (0.0-0.4); Immature Retic Fraction 32.5 % (2.3-13.4); Lymphocytes Absolute Auto 2.3 X10*3/uL (1.2-4.9); Lymphocytes Percent Auto 23.9 % (20-40); Mean Corpuscular HGB Conc 33.2 g/dl (31.0-36.0); Mean Corpuscular Hemoglobin 33.3 pg (27.0-33.0); Mean Corpuscular Volume 100.4 fL (80-98); Mean Platelet Volume 8.7 fL (9.4-12.4); Monocytes Absolute Auto 0.8 X10*3/uL (0.1-1.2); Monocytes Percent Auto 8.3 % (2-11); NRBC Pct Auto 0.2 /100WBC (0.0-0.2); Neutrophils Absolute Auto 6.1 X10*3/uL (2.0-8.3); Neutrophils Percent Auto 63.2 % (45-73); Platelet Count 289 X10*3/uL (160-400); Red Blood Count 2.25 X10*6/uL (4.60-5.80); Retic HGB Equivalent 39.2 pg (30.0-35.0); Reticulocyte Percent 9.7 % (0.5-1.8); Reticulocytes Absolute 0.218 X10*6/uL (0.026-0.095); White Blood Count 9.6 X10*3/uL (4.8-10.8)
[2021-03-18 07:33] LABS: Alanine Aminotransferase 48 U/L (0-40); Albumin Level 3.3 g/dL (3.5-5.0); Alkaline Phosphatase 82 U/L (39-117); Anion Gap 13 (12-20); Aspartate Amino Transferase 34 U/L (5-37); Bilirubin Total 0.6 mg/dL (0.0-1.0); Blood Urea Nitrogen 11 mg/dL (9-16); Calcium 7.8 mg/dL (8.4-10.2); Carbon Dioxide 20 mmol/L (22-29); Chloride 101 mmol/L (96-108); Creatinine Clr Calc Pharmacy 70.8; Estimated Glomerular Filt Rate > 60; Glucose Random 106 mg/dL (60-115); Potassium 3.4 mmol/L (3.3-5.1); Sodium 131 mmol/L (135-145); Total Protein 5.9 g/dL (6.5-8.0)
[2021-03-18 07:42] VITALS: BP 113/72; PULSE 85; RESP 19; TEMP 36.8; O2SAT 97
[2021-03-18 08:17] LABS: Glucose, Whole Blood 113 mg/dL (60-115)
[2021-03-18] MEDS: FLUoxetine HCl 20 MG CAPSULE PO (10:16)
[2021-03-18] MEDS: Lidocaine 4 % Patch ADH..PATCH 1 PATCH TRANSDERMA (10:16)
[2021-03-18] MEDS: NaPROXEN 500 MG TABLET PO ×2 (10:16→16:48)
[2021-03-18] MEDS: clonazePAM 1 MG TABLET PO ×3 (10:16→21:12)
[2021-03-18 11:22] LABS: Glucose, Whole Blood 186 mg/dL (60-115)
--- NOTE | 2021-03-18 11:32 | P.PNIM_ITS ---
Subjective Subjective Date of Service: 03/18/21 Interval History: Still under delusion that he developed DM 3 days ago. No recall of recent hospitalization at [facility]. No insight into his medical condition and will not be able to consent for blood. Still has chest wall + abdominal tenderness though observed to be sleeping in NAD prior to my waking him up. Physical Exam Vital Signs: Vital Signs: Last Vital Signs Temp 98.2 F 03/18/21 07:42 Pulse 85 03/18/21 07:42 Resp 19 03/18/21 07:42 BP 113/72 03/18/21 07:42 Pulse Ox 97 03/18/21 07:42 Body Mass Index 27.3 Gen: in no acute distress HEENT: sclera anicteric, moist mucus membranes Neck: supple Lungs: clear to auscultation bilaterally Heart: regular rate and rhythm, no murmurs; chest wall tenderness Abd: soft, non-tender, non-distended Ext: no edema Skin: warm/well-perfused Neuro: alert and oriented x3, no focal findings Psych: very poor insight, labile affect Objective Data Current Medications Generic Name Dose Route Start Last Admin Trade Name Freq PRN Reason Stop Dose Admin Acetaminophen 650 mg 03/15/21 20:42 Acetaminophen 325 Mg Tablet PO Q6H PRN Pain, Mild (Pain Scale 1-3) Amitriptyline HCl 100 mg 03/15/21 21:00 03/17/21 20:36 Amitriptyline Hcl 50 Mg Tablet PO 100 mg BEDTIME [facility] Administration Amlodipine Besylate 10 mg 03/16/21 09:00 Amlodipine Besylate 10 Mg Tablet PO DAILY [facility] Protocol Carvedilol 6.25 mg 03/15/21 21:00 03/16/21 02:24 Carvedilol 6.25 Mg Tablet PO Not Given BID [facility] Protocol Clonazepam 1 mg 03/15/21 21:00 03/18/21 10:16 Clonazepam 1 Mg Tablet PO 1 mg TID [facility] Administration Enoxaparin Sodium 40 mg 03/16/21 18:30 03/17/21 18:30 Enoxaparin Sodium 40 Mg/0.4 Ml Syringe SUBCUT 40 mg Q24H [facility] Administration Fluoxetine HCl 20 mg 03/16/21 09:00 03/18/21 10:16 Fluoxetine Hcl 20 Mg Capsule PO 20 mg DAILY [facility] Administration Thiamine HCl 500 mg/ Sodium 105 mls @ 210 mls/hr 03/16/21 18:15 03/18/21 11:08 Chloride IV Infused Q8H [facility] Infusion Insulin Human Lispro 0 unit 03/16/21 07:30 03/18/21 08:07 Insulin Lispro 100 Unit/Ml 3 Ml Vial SUBCUT Not Given QIDACHS [facility] Protocol Lidocaine 1 patch 03/16/21 18:30 03/18/21 10:16 Lidocaine 4 % Patch Adh..Patch TRANSDERMA 1 patch DAILY [facility] Administration Protocol Morphine Sulfate 2 mg 03/16/21 11:33 03/18/21 10:27 Morphine Sulfate 2 Mg/Ml Cartridge IVPUSH 2 mg Q2H PRN Administration Pain, Severe (Pain Scale 7-10) Naproxen 500 mg 03/16/21 08:30 03/18/21 10:16 Naproxen 500 Mg Tablet PO 500 mg BIDPC [facility] Administration Omeprazole 40 mg 03/16/21 06:30 03/18/21 06:32 Omeprazole 40 Mg Capsule. PO 40 mg BID@0630,1630 [facility] Administration Pharmacy Consult 1 each 03/15/21 10:24 Consult Rx Perform Med Rec MISCELLANE ONCE PRN Consult order Quetiapine Fumarate 50 mg 03/15/21 21:00 03/17/21 20:36 Quetiapine Fumarate 50 Mg Tablet PO 50 mg BEDTIME [facility] Administration Sodium Chloride 3 ml 03/16/21 00:00 03/18/21 10:18 0.9 % Sodium Chloride Flush 3 Ml Syringe IVFLUSH 3 ml QSHIFT [facility] Administration Labs CBC & Chem 7: 03/18/21 06:42 03/18/21 06:42 Labs: Laboratory Results - last 24 hr 03/17/21 03/17/21 03/17/21 06:16 11:41 16:26 WBC RBC Hgb Hct MCV MCH MCHC RDW Plt Count MPV Immature Gran % (Auto) Neut % (Auto) Lymph % (Auto) Dup[place] % (Auto) Eos % (Auto) Baso % (Auto) Lymph # (Auto) [place] # (Auto) Eos # (Auto) Baso # (Auto) Abs Immat Gran (auto) Absolute Neuts (auto) Absolute Nucleated RBC Nucleated RBC % (auto) Absolute Retic Percent Retic Immature Retic Fraction Retic Hgb Equivalent Fibrinogen D-Dimer Sodium Potassium Chloride Carbon Dioxide Anion Gap BUN Creatinine Estim Creat Clear Calc Estimated GFR POC Glucose 108 200 H Random Glucose Calcium Total Bilirubin AST ALT Alkaline Phosphatase Lactate Dehydrogenase 301 H Total Protein Albumin 03/17/21 03/17/21 03/18/21 19:05 20:07 06:42 WBC 9.6 RBC 2.25 L Hgb 7.5 L Hct 22.6 L MCV 100.4 H MCH 33.3 H MCHC 33.2 RDW 15.0 Plt Count 289 MPV 8.7 L Immature Gran % (Auto) 2.4 H Neut % (Auto) 63.2 Lymph % (Auto) 23.9 Dup[place] % (Auto) 8.3 Eos % (Auto) 1.8 Baso % (Auto) 0.4 Lymph # (Auto) 2.3 [place] # (Auto) 0.8 Eos # (Auto) 0.2 Baso # (Auto) 0.0 Abs Immat Gran (auto) 0.23 H Absolute Neuts (auto) 6.1 Absolute Nucleated RBC 0.020 H Nucleated RBC % (auto) 0.2 Absolute Retic 0.218 H Percent Retic 9.7 H Immature Retic Fraction 32.5 H Retic Hgb Equivalent 39.2 H Fibrinogen 604 D-Dimer 618 Sodium Potassium Chloride Carbon Dioxide Anion Gap BUN Creatinine Estim Creat Clear Calc Estimated GFR POC Glucose 84 Random Glucose Calcium Total Bilirubin AST ALT Alkaline Phosphatase Lactate Dehydrogenase Total Protein Albumin 03/18/21 03/18/21 03/18/21 06:42 07:50 11:16 WBC RBC Hgb Hct MCV MCH MCHC RDW Plt Count MPV Immature Gran % (Auto) Neut % (Auto) Lymph % (Auto) [place] % (Auto) Eos % (Auto) Baso % (Auto) Lymph # (Auto) [place] # (Auto) Eos # (Auto) Baso # (Auto) Abs Immat Gran (auto) Absolute Neuts (auto) Absolute Nucleated RBC Nucleated RBC % (auto) Absolute Retic Percent Retic Immature Retic Fraction Retic Hgb Equivalent Fibrinogen D-Dimer Sodium 131 L Potassium 3.4 Chloride 101 Carbon Dioxide 20 L Anion Gap 13 BUN 11 Creatinine 1.06 Estim Creat Clear Calc 70.8 Estimated GFR > 60 POC Glucose 113 186 H Random Glucose 106 Calcium 7.8 L Total Bilirubin 0.6 AST 34 ALT 48 H Alkaline Phosphatase 82 Lactate Dehydrogenase Total Protein 5.9 L Albumin 3.3 L Microbiology Microbiology Results: Microbiology 03/15/21 17:44 Cerebrospinal Fluid Gram Stain - Final 03/15/21 17:44 Cerebrospinal Fluid CSF Examination - Final 03/15/21 17:44 Cerebrospinal Fluid Fluid Description - Final 03/15/21 17:44 Cerebrospinal Fluid CSF Culture - Final No growth after 3 days. 03/15/21 18:10 Blood - Venous Blood Culture - Preliminary No growth after 48 hours. 03/15/21 17:09 Blood - Venous Blood Culture - Preliminary No growth after 48 hours. Assessment and Plan (1) Altered mental status: Status: Acute (2) Encephalopathy: Status: Acute Assessment and Plan: hospital d#4 60yo M with DM2 (though denies prior hx), HTN, HLD, polysubstance use, schizophrenia recent admission to [facility] with AMS from [facility] 03/09-03/13/21 completely unbeknownst to the patient presented with confusion though per his [facility] case advocate, with whom psychiatry COMMERCIAL INSTRUCTOR SUPERVISOR Bekah Ni spoke: Martínez reports he has known patient for over 10 years and over the last 3- 4 years his health and memory have deteriorated significantly. He cited examples of having to find him because he was lost and didn't know how to get back home (he was actually around the corner from his apt). he also reported getting called by a [employer] senior technical business analyst stating that patient had been sitting on the bus for hours and didn't know where he was supposed to be going. Martínez reports that patient is also a [facility] client and has a [facility] worker named Marlon Castro ([phone]). Martínez reports that patient recently had services increased, but that he has been advocating for sometime for patient to be in some type of residential setting where he is supervised and medications are adm inistered. # anemia, Silvano-neg hemolytic - Heme consult appreciated. pending:G6PD, SPEP/RADHA, flow cytometry, FOBT. will recheck CBCd tomorrow and if continues to decline will transfuse blood with emergency consent and consider prednisone # encephalopathy versus psychiatric decompensation - LP no signs of meningitis. empiric treatment for Wernicke's with IV thiamine given reported EtOH hx @ [facility]. NH3, B12, HIV, T pallidum EIA negative. psychiatric meds as below. # atypical chest pain - Tn-I decreased, no ischemic EKG changes. continue lidocaine patch. # hypoK - repleted # HTN - held amlodipine + carvedilol and blood pressures are low/normal # schizophrenia - fluoxetine, clonazepam, amitriptyline, quetiapine; psychiatry consult; appears to have no insight into his medical condition # DM2, A1c 10.5 - correction-dose lispro # VTE ppx - LMWH # dispo - will be problematic. I do not think he his safe for discharge home. will discuss with psychiatry and CM
[2021-03-18] MEDS: Insulin Lispro 100 UNIT/ML 3 ML VIAL SUBCUT (12:24)
[2021-03-18 13:56] LABS: Haptoglobin 75 mg/dL (43-212)
[2021-03-18 15:26] VITALS: BP 104/68; PULSE 98; RESP 20; TEMP 36.6; O2SAT 98
[2021-03-18 16:31] LABS: Glucose, Whole Blood 90 mg/dL (60-115)
[2021-03-18] MEDS: Enoxaparin Sodium 40 MG/0.4 ML SYRINGE SUBCUT (16:48)
[2021-03-18 19:28] VITALS: BP 103/68; PULSE 95; RESP 20; TEMP 36.4; O2SAT 100
[2021-03-18 20:50] LABS: Glucose, Whole Blood 145 mg/dL (60-115)
[2021-03-18 21:12] VITALS: RESP 20
[2021-03-18] MEDS: QUEtiapine Fumarate 50 MG TABLET PO (21:12)
[2021-03-18] MEDS: Amitriptyline HCl 50 MG TABLET 100 MG PO (21:12)
[2021-03-19] VITALS (7 sets, daily range): BP systolic 95–133; BP diastolic 52–81; PULSE 65–115; RESP 16–19; TEMP 36.1–36.6; O2SAT 98–100
[2021-03-19] MEDS: Thiamine HCL 500 MG in 0.9 % Sodium Chloride 100 ML 210 MG IV (03:06)
[2021-03-19] MEDS: Omeprazole 40 MG CAPSULE.DR PO ×2 (06:57→16:35)
[2021-03-19 07:05] LABS: MANUAL DIFF FLAG NO
[2021-03-19 07:14] LABS: Basophils Percent Auto 0.3 % (0-2); Eosinophils Absolute Auto 0.1 X10*3/uL (0.0-0.4); Hematocrit 22.7 % (42-52); Hemoglobin 7.3 g/dl (14.0-18.0); Imm Gran Abs Auto 0.15 X10*3/uL (0.00-0.03); Imm Gran Pct Auto 2.2 % (0.0-0.4); Lymphocytes Absolute Auto 1.3 X10*3/uL (1.2-4.9); Lymphocytes Percent Auto 19.2 % (20-40); Mean Corpuscular HGB Conc 32.2 g/dl (31.0-36.0); Mean Corpuscular Hemoglobin 32.7 pg (27.0-33.0); Mean Corpuscular Volume 101.8 fL (80-98); Mean Platelet Volume 8.5 fL (9.4-12.4); Monocytes Absolute Auto 0.6 X10*3/uL (0.1-1.2); Monocytes Percent Auto 8.9 % (2-11); Neutrophils Absolute Auto 4.7 X10*3/uL (2.0-8.3); Neutrophils Percent Auto 67.4 % (45-73); Platelet Count 285 X10*3/uL (160-400); Red Blood Count 2.23 X10*6/uL (4.60-5.80); Red Cell Distribution Width 15.6 % (11.0-16.0)
[2021-03-19 07:49] LABS: Glucose, Whole Blood 192 mg/dL (60-115)
[2021-03-19 08:02] LABS: SARS COV2 IgG Negative (Negative)
[2021-03-19] MEDS: Morphine Sulfate 2 MG/ML CARTRIDGE IVPUSH ×4 (08:19→23:38)
[2021-03-19] MEDS: Insulin Lispro 100 UNIT/ML 3 ML VIAL SUBCUT ×2 (08:38→16:33)
[2021-03-19] MEDS: Folic Acid 1 MG TABLET PO (08:39)
[2021-03-19] MEDS: Thiamine HCL 100 MG TABLET PO (08:39)
[2021-03-19] MEDS: FLUoxetine HCl 20 MG CAPSULE PO (08:39)
[2021-03-19] MEDS: NaPROXEN 500 MG TABLET PO ×2 (08:39→16:35)
[2021-03-19] MEDS: Multivitamin TABLET 1 TAB PO (08:39)
[2021-03-19] MEDS: Lidocaine 4 % Patch ADH..PATCH 1 PATCH TRANSDERMA (08:39)
[2021-03-19] MEDS: clonazePAM 1 MG TABLET PO ×3 (08:39→21:49)
[2021-03-19] MEDS: 0.9 % Sodium Chloride Flush 3 ML SYRINGE IVFLUSH ×2 (08:50→16:37)
[2021-03-19] MEDS: predniSONE 20 MG TABLET 60 MG PO (10:49)
[2021-03-19 12:13] LABS: Glucose, Whole Blood 129 mg/dL (60-115)
--- NOTE | 2021-03-19 14:37 | P.PNIM_ITS ---
Subjective Subjective Date of Service: 03/19/21 Interval History: Became agitated when I inquired about transfusing blood and claimed that I was trying to kill him. Willing to try steroids for AIHA, though. Still has no recall of admission to [facility]. Physical Exam Vital Signs: Vital Signs: Last Vital Signs Temp 97.0 F 03/19/21 11:31 Pulse 84 03/19/21 11:31 Resp 19 03/19/21 11:31 BP 114/74 03/19/21 11:31 Pulse Ox 100 03/19/21 11:31 Body Mass Index 27.3 Gen: in no acute distress HEENT: sclera anicteric, pale mucus membranes Neck: supple Lungs: clear to auscultation bilaterally Heart: regular rate and rhythm, no murmurs; chest wall tenderness Abd: soft, non-tender, non-distended Ext: no edema Skin: warm/well-perfused Neuro: alert and oriented x3, no focal findings Psych: very poor insight, labile affect Objective Data Current Medications Generic Name Dose Route Start Last Admin Trade Name Naima PRN Reason Stop Dose Admin Acetaminophen 650 mg 03/15/21 20:42 Acetaminophen 325 Mg Tablet PO Q6H PRN Pain, Mild (Pain Scale 1-3) Amitriptyline HCl 100 mg 03/15/21 21:00 03/18/21 21:12 Amitriptyline Hcl 50 Mg Tablet PO 100 mg BEDTIME YUN Administration Amlodipine Besylate 10 mg 03/16/21 09:00 Amlodipine Besylate 10 Mg Tablet PO DAILY YUN Protocol Carvedilol 6.25 mg 03/15/21 21:00 03/16/21 02:24 Carvedilol 6.25 Mg Tablet PO Not Given BID YUN Protocol Clonazepam 1 mg 03/15/21 21:00 03/19/21 08:39 Clonazepam 1 Mg Tablet PO 1 mg TID YUN Administration Enoxaparin Sodium 40 mg 03/16/21 18:30 03/18/21 16:48 Enoxaparin Sodium 40 Mg/0.4 Ml Syringe SUBCUT 40 mg Q24H YUN Administration Fluoxetine HCl 20 mg 03/16/21 09:00 03/19/21 08:39 Fluoxetine Hcl 20 Mg Capsule PO 20 mg DAILY YUN Administration Folic Acid 1 mg 03/19/21 09:00 03/19/21 08:39 Folic Acid 1 Mg Tablet PO 1 mg DAILY YUN Administration Insulin Human Lispro 0 unit 03/16/21 07:30 03/19/21 12:09 Insulin Lispro 100 Unit/Ml 3 Ml Vial SUBCUT Not Given QIDACHS [facility] Protocol Lidocaine 1 patch 03/16/21 18:30 03/19/21 08:39 Lidocaine 4 % Patch Adh..Patch TRANSDERMA 1 patch DAILY YUN Administration Protocol Morphine Sulfate 2 mg 03/16/21 11:33 03/19/21 08:19 Morphine Sulfate 2 Mg/Ml Cartridge IVPUSH 2 mg Q2H PRN Administration Pain, Severe (Pain Scale 7-10) Multivitamins/Vitamin C 1 tab 03/19/21 09:00 03/19/21 08:39 Multivitamin Tablet PO 1 tab DAILY YUN Administration Naproxen 500 mg 03/16/21 08:30 03/19/21 08:39 Naproxen 500 Mg Tablet PO 500 mg BIDPC YUN Administration Omeprazole 40 mg 03/16/21 06:30 03/19/21 06:57 Omeprazole 40 Mg Capsule. PO 40 mg BID@6917,7958 [facility] Administration Pharmacy Consult 1 each 03/15/21 10:24 Consult Rx Perform Med Rec MISCELLANE ONCE PRN Consult order Prednisone 60 mg 03/19/21 09:30 03/19/21 10:49 Prednisone 20 Mg Tablet PO 60 mg DAILY YUN Administration Quetiapine Fumarate 50 mg 03/15/21 21:00 03/18/21 21:12 Quetiapine Fumarate 50 Mg Tablet PO 50 mg BEDTIME YUN Administration Sodium Chloride 3 ml 03/16/21 00:00 03/19/21 08:50 0.9 % Sodium Chloride Flush 3 Ml Syringe IVFLUSH 3 ml QSHIFT [facility] Administration Thiamine HCl 100 mg 03/19/21 09:00 03/19/21 08:39 Thiamine Hcl 100 Mg Tablet PO 100 mg DAILY [facility] Administration Labs CBC & Chem 7: 03/19/21 06:54 03/18/21 06:42 Labs: Laboratory Results - last 24 hr 03/17/21 03/18/21 03/18/21 06:16 16:24 20:45 WBC RBC Hgb Hct MCV MCH MCHC RDW Plt Count MPV Immature Gran % (Auto) Neut % (Auto) Lymph % (Auto) [place] % (Auto) Eos % (Auto) Baso % (Auto) Lymph # (Auto) [place] # (Auto) Eos # (Auto) Baso # (Auto) Abs Immat Gran (auto) Absolute Neuts (auto) Absolute Nucleated RBC Nucleated RBC % (auto) POC Glucose 90 145 H SARS-CoV-2 IgG Ab Negative 03/19/21 03/19/21 03/19/21 06:54 07:42 11:29 WBC 7.0 RBC 2.23 L Hgb 7.3 L Hct 22.7 L MCV 101.8 H MCH 32.7 MCHC 32.2 RDW 15.6 Plt Count 285 MPV 8.5 L Immature Gran % (Auto) 2.2 H Neut % (Auto) 67.4 Lymph % (Auto) 19.2 L [place] % (Auto) 8.9 Eos % (Auto) 2.0 Baso % (Auto) 0.3 Lymph # (Auto) 1.3 [place] # (Auto) 0.6 Eos # (Auto) 0.1 Baso # (Auto) 0.0 Abs Immat Gran (auto) 0.15 H Absolute Neuts (auto) 4.7 Absolute Nucleated RBC 0.000 Nucleated RBC % (auto) 0.0 POC Glucose 192 H 129 H SARS-CoV-2 IgG Ab Microbiology Microbiology Results: Microbiology 03/15/21 17:44 Cerebrospinal Fluid Gram Stain - Final 03/15/21 17:44 Cerebrospinal Fluid CSF Examination - Final 03/15/21 17:44 Cerebrospinal Fluid Fluid Description - Final 03/15/21 17:44 Cerebrospinal Fluid CSF Culture - Final No growth after 3 days. 03/15/21 18:10 Blood - Venous Blood Culture - Preliminary No growth after 48 hours. 03/15/21 17:09 Blood - Venous Blood Culture - Preliminary No growth after 48 hours. Assessment and Plan (1) Altered mental status: Status: Acute (2) Encephalopathy: Status: Acute Assessment and Plan: hospital d#5 60yo M with DM2 (though denies prior hx), HTN, HLD, polysubstance use, schizophrenia recent admission to [facility] with [place] from [facility] 03/09-03/13/21 completely unbeknownst to the patient presented with confusion though per his [facility] shelter case manager, with whom psychiatry DIRECTOR OF STUDENT LIFE Bekah Ni spoke: Martínez reports he has known patient for over 10 years and over the last 3- 4 years his health and memory have deteriorated significantly. He cited examples of having to find him because he was lost and didn't know how to get back home (he was actually around the corner from his apt). he also reported getting called by a [employer] business strategist stating that patient had been sitting on the bus for hours and didn't know where he was supposed to be going. Martínez reports that patient is also a DM client and has a DM worker named Marlon Castro ([phone]). Martínez reports that patient recently had services increased, but that he has been advocating for sometime for patient to be in some type of residential setting where he is supervised and medications are administered. # anemia, Silvano-neg hemolytic - Heme consult appreciated. pending:G6PD, SPEP/RADHA, flow cytometry. patient declines transfusion [though doubt he has decision-making capacity]. will give prednisone 60 mg/d, started 03/19. recheck CBCd tomorrow. # encephalopathy versus psychiatric decompensation - LP no signs of meningitis. empiric treatment for Wernicke's with IV-> PO thiamine given reported EtOH hx @ [facility]. NH3, B12, HIV, T pallidum EIA negative. psychiatric meds as below. # atypical chest pain - Tn-I decreased, no ischemic EKG changes. continue lidocaine patch. # hypoK - repleted # HTN - held amlodipine + carvedilol and blood pressures are low/normal # HCV antibody positive - viral load pending # schizophrenia - fluoxetine, clonazepam, amitriptyline, quetiapine; psychiatry consult; appears to have no insight into his medical condition # DM2, A1c 10.5 - correction-dose lispro # VTE ppx - LMWH # dispo - will need BHN/Care team consult for level of care determination once medically cleared from the perspective of his worsening hemolytic anemia
[2021-03-19 16:28] LABS: Glucose, Whole Blood 269 mg/dL (60-115)
[2021-03-19] MEDS: Enoxaparin Sodium 40 MG/0.4 ML SYRINGE SUBCUT (16:36)
[2021-03-19 20:42] LABS: Glucose, Whole Blood 104 mg/dL (60-115)
[2021-03-19 21:48] LABS: Glucose, Whole Blood 139 mg/dL (60-115)
[2021-03-19] MEDS: Amitriptyline HCl 50 MG TABLET 100 MG PO (21:49)
[2021-03-19] MEDS: QUEtiapine Fumarate 50 MG TABLET PO (21:49)
[2021-03-20] VITALS (8 sets, daily range): BP systolic 102–147; BP diastolic 61–92; PULSE 85–118; RESP 16–19; TEMP 36.3–37.3; O2SAT 96–99
[2021-03-20] MEDS: 0.9 % Sodium Chloride Flush 3 ML SYRINGE IVFLUSH ×4 (00:19→20:28)
[2021-03-20] MEDS: Morphine Sulfate 2 MG/ML CARTRIDGE IVPUSH ×5 (03:47→20:47)
[2021-03-20] MEDS: Omeprazole 40 MG CAPSULE.DR PO ×2 (05:49→16:47)
[2021-03-20 07:35] LABS: Glucose, Whole Blood 110 mg/dL (60-115)
[2021-03-20] MEDS: clonazePAM 1 MG TABLET PO ×3 (09:23→20:27)
[2021-03-20] MEDS: predniSONE 20 MG TABLET 60 MG PO (09:23)
[2021-03-20] MEDS: NaPROXEN 500 MG TABLET PO ×2 (09:23→16:48)
[2021-03-20] MEDS: FLUoxetine HCl 20 MG CAPSULE PO (09:23)
[2021-03-20] MEDS: Thiamine HCL 100 MG TABLET PO (09:23)
[2021-03-20] MEDS: Multivitamin TABLET 1 TAB PO (09:23)
[2021-03-20] MEDS: Folic Acid 1 MG TABLET PO (09:23)
[2021-03-20] MEDS: Lidocaine 4 % Patch ADH..PATCH 1 PATCH TRANSDERMA (09:24)
[2021-03-20 09:31] LABS: MANUAL DIFF FLAG NO
[2021-03-20 09:33] LABS: Basophils Percent Auto 0.2 % (0-2); Eosinophils Absolute Auto 0.1 X10*3/uL (0.0-0.4); Eosinophils Percent Auto 0.5 % (0-4); Hematocrit 21.3 % (42-52); Imm Gran Abs Auto 0.14 X10*3/uL (0.00-0.03); Imm Gran Pct Auto 1.3 % (0.0-0.4); Immature Retic Fraction 29.5 % (2.3-13.4); Lymphocytes Absolute Auto 1.7 X10*3/uL (1.2-4.9); Lymphocytes Percent Auto 15.8 % (20-40); Mean Corpuscular HGB Conc 32.9 g/dl (31.0-36.0); Mean Corpuscular Hemoglobin 33.8 pg (27.0-33.0); Mean Corpuscular Volume 102.9 fL (80-98); Mean Platelet Volume 8.3 fL (9.4-12.4); Monocytes Absolute Auto 0.9 X10*3/uL (0.1-1.2); Monocytes Percent Auto 8.5 % (2-11); NRBC Pct Auto 0.4 /100WBC (0.0-0.2); Neutrophils Absolute Auto 7.9 X10*3/uL (2.0-8.3); Neutrophils Percent Auto 73.7 % (45-73); Platelet Count 274 X10*3/uL (160-400); Red Blood Count 2.07 X10*6/uL (4.60-5.80); Red Cell Distribution Width 15.9 % (11.0-16.0); Reticulocyte Percent 8.9 % (0.5-1.8); Reticulocytes Absolute 0.185 X10*6/uL (0.026-0.095); White Blood Count 10.7 X10*3/uL (4.8-10.8)
--- NOTE | 2021-03-20 09:37 | HO.PM.IMPN ---
Subjective Subjective Date of Service: 03/20/21 Interval History: seen and examined this AM with automotive parts interpreter services reports his memory is on the decline. reports constipation denies abodminal pain, roach, n/v ROS General - no fevers or chills Cardiovascular - no chest pain Respiratory - no shortness of breath or cough Abdominal- no abdominal pain, nausea, vomiting, diarrhea Physical Exam Vital Signs: Vital Signs: Last Vital Signs Temp 97.8 F 03/20/21 07:23 Pulse 110 H 03/20/21 07:23 Resp 19 03/20/21 07:23 BP 102/65 03/20/21 07:23 Pulse Ox 96 03/20/21 07:23 Body Mass Index 27.3 Const: General: cooperative, healthy appearing and no acute distress Eyes: Pupils: Equal, round and reactive pupils present Neck: Neck: Yes supple Chest: Chest palpation & inspection: normal inspection of the chest Resp: Effort & Inspection: normal respiratory effort and able to speak in complete sentences Auscultation: clear to auscultation bilaterally Cardio: Jugular venous distension: no JVD Rhythm: regular rhythm Heart sounds: S1 normal heart sound present and S2 normal heart sound present GI: Inspection: Yes normal to inspection Palpation (GI): Soft to palpation Auscultation: normal bowel sounds Skin: General skin exam: no rashes or lesions noted Neuro: Cranial nerves: Yes Equal, round and reactive pupils present Motor exam (neuro): Other motor observations present ( no motor deficit) Objective Data Current Medications Generic Name Dose Route Start Last Admin Trade Name Loyq PRN Reason Stop Dose Admin Acetaminophen 650 mg 03/15/21 20:42 Acetaminophen 325 Mg Tablet PO Q6H PRN Pain, Mild (Pain Scale 1-3) Amitriptyline HCl 100 mg 03/15/21 21:00 03/19/21 21:49 Amitriptyline Hcl 50 Mg Tablet PO 100 mg BEDTIME YUN Administration Amlodipine Besylate 10 mg 03/16/21 09:00 Amlodipine Besylate 10 Mg Tablet PO DAILY YUN Protocol Carvedilol 6.25 mg 03/15/21 21:00 03/16/21 02:24 Carvedilol 6.25 Mg Tablet PO Not Given BID YUN Protocol Clonazepam 1 mg 03/15/21 21:00 03/20/21 09:23 Clonazepam 1 Mg Tablet PO 1 mg TID YUN Administration Enoxaparin Sodium 40 mg 03/16/21 18:30 03/19/21 16:36 Enoxaparin Sodium 40 Mg/0.4 Ml Syringe SUBCUT 40 mg Q24H YUN Administration Fluoxetine HCl 20 mg 03/16/21 09:00 03/20/21 09:23 Fluoxetine Hcl 20 Mg Capsule PO 20 mg DAILY YUN Administration Folic Acid 1 mg 03/19/21 09:00 03/20/21 09:23 Folic Acid 1 Mg Tablet PO 1 mg DAILY YUN Administration Insulin Human Lispro 0 unit 03/16/21 07:30 03/20/21 07:38 Insulin Lispro 100 Unit/Ml 3 Ml Vial SUBCUT Not Given QIDACHS [facility] Protocol Lidocaine 1 patch 03/16/21 18:30 03/20/21 09:24 Lidocaine 4 % Patch Adh..Patch TRANSDERMA 1 patch DAILY YUN Administration Protocol Morphine Sulfate 2 mg 03/16/21 11:33 03/20/21 09:23 Morphine Sulfate 2 Mg/Ml Cartridge IVPUSH 2 mg Q2H PRN Administration Pain, Severe (Pain Scale 7-10) Multivitamins/Vitamin C 1 tab 03/19/21 09:00 03/20/21 09:23 Multivitamin Tablet PO 1 tab DAILY YUN Administration Naproxen 500 mg 03/16/21 08:30 03/20/21 09:23 Naproxen 500 Mg Tablet PO 500 mg BIDPC YUN Administration Omeprazole 40 mg 03/16/21 06:30 03/20/21 05:49 Omeprazole 40 Mg Capsule. PO 40 mg BID@3221,7100 [facility] Administration Pharmacy Consult 1 each 03/15/21 10:24 Consult Rx Perform Med Rec MISCELLANE ONCE PRN Consult order Prednisone 60 mg 03/19/21 09:30 03/20/21 09:23 Prednisone 20 Mg Tablet PO 60 mg DAILY YUN Administration Quetiapine Fumarate 50 mg 03/15/21 21:00 03/19/21 21:49 Quetiapine Fumarate 50 Mg Tablet PO 50 mg BEDTIME YUN Administration Sodium Chloride 3 ml 03/16/21 00:00 03/20/21 09:24 0.9 % Sodium Chloride Flush 3 Ml Syringe IVFLUSH 3 ml QSHIFT YUN Administration Thiamine HCl 100 mg 03/19/21 09:00 03/20/21 09:23 Thiamine Hcl 100 Mg Tablet PO 100 mg DAILY [facility] Administration Labs CBC & Chem 7: 03/20/21 09:25 03/20/21 09:25 Microbiology Microbiology Results: Microbiology 03/15/21 17:44 Cerebrospinal Fluid Gram Stain - Final 03/15/21 17:44 Cerebrospinal Fluid CSF Examination - Final 03/15/21 17:44 Cerebrospinal Fluid Fluid Description - Final 03/15/21 17:44 Cerebrospinal Fluid CSF Culture - Final No growth after 3 days. 03/15/21 18:10 Blood - Venous Blood Culture - Preliminary No growth after 48 hours. 03/15/21 17:09 Blood - Venous Blood Culture - Preliminary No growth after 48 hours. Assessment and Plan (1) Altered mental status: Status: Acute (2) Encephalopathy: Status: Acute Assessment and Plan: hospital d#6 60yo M with DM2 (though denies prior hx), HTN, HLD, polysubstance use, schizophrenia recent admission to [facility] with AMS from [facility] 03/09-03/13/21 completely unbeknownst to the patient presented with confusion though per his [facility] case mgr, with whom psychiatry GLASS SMOOTHER Bekah Ni spoke: Martínez reports he has known patient for over 10 years and over the last 3- 4 years his health and memory have deteriorated significantly. He cited examples of having to find him because he was lost and didn't know how to get back home (he was actually around the corner from his apt). he also reported getting called by a [employer] business system consultant stating that patient had been sitting on the bus for hours and didn't know where he was supposed to be going. Martínez reports that patient is also a [facility] client and has a [facility] worker named Marlon Castro ([phone]). Martínez reports that patient recently had services increased, but that he has been advocating for sometime for patient to be in some type of residential setting where he is supervised and medications are administered. 1. anemia, Silvano-neg hemolytic Heme consult appreciated. pending:G6PD, SPEP/RADHA, flow cytometry. Prenidonse 60mg -- started 03/19/2020 labs this AM d/w Dr. Valencia -- okay for d/c from hematology end 2. encephalopathy versus psychiatric decompensation LP no signs of meningitis. completed empiric treatment for Wernicke's with IV thaimin, now switched to PO thiamine given reported EtOH hx @ [facility]. NH3, B12, HIV, T pallidum EIA negative. psychiatric meds as below. 3. atypical chest pain Tn-I decreased, no ischemic EKG changes. continue lidocaine patch. 4. hypoK repleted labs pending this AM 5. HTN norvasc + coreg on hold; bp stable off those meds 6. HCV antibody positive viral load pending 7. schizophrenia fluoxetine, clonazepam, amitriptyline, quetiapine; psychiatry consult; appears to have no insight into his medical condition will need CARE/BHN evaluation pending medical clerance 8. DM2, A1c 10.5 correction-dose lispro Full Code DVT pptx, Lovenox dispo: TBD. Medically clear for d/c, Care team consult placed.
[2021-03-20 10:06] LABS: Alanine Aminotransferase 40 U/L (0-40); Albumin Level 3.6 g/dL (3.5-5.0); Alkaline Phosphatase 92 U/L (39-117); Anion Gap 11 (12-20); Aspartate Amino Transferase 26 U/L (5-37); Bilirubin Total 0.9 mg/dL (0.0-1.0); Blood Urea Nitrogen 13 mg/dL (9-16); Carbon Dioxide 22 mmol/L (22-29); Chloride 108 mmol/L (96-108); Estimated Glomerular Filt Rate > 60; Glucose Random 115 mg/dL (60-115); Potassium 3.4 mmol/L (3.3-5.1); Sodium 138 mmol/L (135-145); Total Protein 6.5 g/dL (6.5-8.0)
[2021-03-20 10:19] LABS: Calcium 8.4 mg/dL (8.4-10.2); Lactate Dehydrogenase 291 U/L (118-273)
[2021-03-20 11:33] LABS: Glucose, Whole Blood 138 mg/dL (60-115)
[2021-03-20 16:27] LABS: Glucose, Whole Blood 242 mg/dL (60-115)
[2021-03-20] MEDS: Insulin Lispro 100 UNIT/ML 3 ML VIAL SUBCUT ×2 (16:47→20:47)
[2021-03-20] MEDS: Enoxaparin Sodium 40 MG/0.4 ML SYRINGE SUBCUT (16:48)
[2021-03-20 19:51] LABS: IgA 237 mg/dL (70-320); IgG 1183 mg/dL (600-1540); IgM 46 mg/dL (50-300)
[2021-03-20] MEDS: Amitriptyline HCl 50 MG TABLET 100 MG PO (20:27)
[2021-03-20] MEDS: QUEtiapine Fumarate 50 MG TABLET PO (20:27)
[2021-03-20 21:11] LABS: Glucose, Whole Blood 219 mg/dL (60-115)
[2021-03-20 23:03] LABS: PES - Abn Protein Band 1 0.3 g/dL (NONE DETECTED); Prot Elec - Albumin 3.1 g/dL (3.8-4.8); Prot Elec - Alpha1 0.4 g/dL (0.2-0.3); Prot Elec - Alpha2 0.6 g/dL (0.5-0.9); Prot Elec - Beta 1 0.4 g/dL (0.4-0.6); Prot Elec - Beta 2 0.4 g/dL (0.2-0.5); Prot Elec - Gamma 0.9 g/dL (0.8-1.7); Prot Elec - Total Protein 5.8 g/dL (6.1-8.1)
--- NOTE | 2021-03-20 23:21 | MHC.CARE ---
Addendum entered by Meg Mason LCSW 03/20/21 23:24: [facility] crisis evaluation will be placed in pt's physical chart on med floor. Original Note: CARE team consult requested for pt that has been admitted to medical floor since 03/15/21 for altered mental status. Pt was seen on Saturday03/17/21 by both DIEGO Ni for a psych consult at 4pm and a [facility] safety officer at 8pm. Outcome from psych consult was a medication adjustment and the concern re: pt's ability to care for himself based on reports of increasing memory loss and confusion. Disposition of crisis evaluation was that pt does not meet level of care for an inpatient psychiatric admission with recommendation to utilize natural supports and outpatient providers to manage his present symptoms. The notable symptoms of concern identified from the psych consult/crisis assessment were pertaining to agitation/irritability, poor sleep, and memory loss. Hospitalist, neurology, and oncology notes were also reviewed which indicated concerns pertaining to agitation/irritability, some paranoia, and confusion/disorientation. Per collateral information obtained during psych consult- it was reported by pt's [facility] case advocate that the pt's health and memory have been deteriorating for the past 3-4 years, and that he has been advocating that pt be placed in a halfway/residential program that can provide increased support, supervision, and assist with management of medications and medical care. Pt has outpatient therapy and psychiatry through [facility] in [place], medical care through [facility], [facility] services, and case management through [facility]. Pt is reported to be at his baseline with regards to his psychiatric presentation. Medical dx: Diabetes, Hepatitis C, hyperkalemia Given all of the above information, clinical impression of this sports book writer is that the concerns indicated in pt's chart from this admission, with consideration from concerns expressed by pt's natural and formal supports, will not be addressed during an inpatient psychiatric treatment episode. If it has not been done yet, pt should be evaluated for possible early onset of dementia and tested for Korsakoff/Wernicke's. While it was reported by pt's [facility] case advocate that his home based services have increased, it does appear that pt would likely benefit from placement in a director long term care treatment program. Unless new/additional concerns re: pt's behavioral health arise, there is no presently indicated reason for further mental health or psychiatric assessment or stabilization based on the nature of pt's current symptoms and presentation. CARE team available if needed.
[2021-03-21] VITALS (7 sets, daily range): BP systolic 102–141; BP diastolic 69–91; PULSE 93–125; RESP 15–18; TEMP 36.4–37; O2SAT 94–98
[2021-03-21] MEDS: Omeprazole 40 MG CAPSULE.DR PO ×2 (05:45→17:12)
[2021-03-21 07:22] LABS: Glucose, Whole Blood 135 mg/dL (60-115)
[2021-03-21] MEDS: Lidocaine 4 % Patch ADH..PATCH 1 PATCH TRANSDERMA (07:29)
[2021-03-21] MEDS: FLUoxetine HCl 20 MG CAPSULE PO (07:31)
[2021-03-21] MEDS: NaPROXEN 500 MG TABLET PO (07:31)
[2021-03-21] MEDS: Multivitamin TABLET 1 TAB PO (07:31)
[2021-03-21] MEDS: predniSONE 20 MG TABLET 60 MG PO (07:31)
[2021-03-21] MEDS: Folic Acid 1 MG TABLET PO (07:32)
[2021-03-21] MEDS: Thiamine HCL 100 MG TABLET PO (07:32)
[2021-03-21] MEDS: 0.9 % Sodium Chloride Flush 3 ML SYRINGE IVFLUSH ×2 (07:32→15:14)
[2021-03-21] MEDS: Morphine Sulfate 2 MG/ML CARTRIDGE IVPUSH (07:40)
[2021-03-21 09:00] LABS: Hematocrit 21.6 % (42-52); Mean Corpuscular HGB Conc 31.5 g/dl (31.0-36.0); Mean Corpuscular Volume 104.9 fL (80-98); Mean Platelet Volume 8.6 fL (9.4-12.4); NRBC Pct Auto 0.7 /100WBC (0.0-0.2); Platelet Count 297 X10*3/uL (160-400); Red Blood Count 2.06 X10*6/uL (4.60-5.80); Red Cell Distribution Width 15.9 % (11.0-16.0); White Blood Count 10.7 X10*3/uL (4.8-10.8)
[2021-03-21 09:15] LABS: Hemoglobin 6.8 g/dl (14.0-18.0)
[2021-03-21] MEDS: Insulin Lispro 100 UNIT/ML 3 ML VIAL SUBCUT ×3 (11:32→20:50)
[2021-03-21 11:38] LABS: Glucose, Whole Blood 292 mg/dL (60-115)
[2021-03-21 11:47] LABS: Haptoglobin 105 mg/dL (43-212)
--- NOTE | 2021-03-21 15:06 | P.PNIM_ITS ---
Subjective Subjective Date of Service: 03/21/21 Interval History: seen and examined this AM with project/production manager imaging services no new complaints, asking me for ensure ROS General - no fevers or chills Cardiovascular - no chest pain Respiratory - no shortness of breath or cough Abdominal- no abdominal pain, nausea, vomiting, diarrhea Physical Exam Vital Signs: Vital Signs: Last Vital Signs Temp 98.3 F 03/21/21 11:24 Pulse 93 03/21/21 11:24 Resp 15 03/21/21 11:24 BP 141/75 H 03/21/21 11:24 Pulse Ox 98 03/21/21 11:24 Body Mass Index 27.3 Const: General: cooperative, healthy appearing and no acute distress Eyes: Pupils: Equal, round and reactive pupils present Neck: Neck: Yes supple Chest: Chest palpation & inspection: normal inspection of the chest Resp: Effort & Inspection: normal respiratory effort and able to speak in complete sentences Auscultation: clear to auscultation bilaterally Cardio: Jugular venous distension: no JVD Rhythm: regular rhythm Heart sounds: S1 normal heart sound present and S2 normal heart sound present GI: Inspection: Yes normal to inspection Palpation (GI): Soft to palpation Auscultation: normal bowel sounds Skin: General skin exam: no rashes or lesions noted Neuro: Cranial nerves: Yes Equal, round and reactive pupils present Motor exam (neuro): Other motor observations present ( no motor deficit) Psych: Other: poor insight Objective Data Current Medications Generic Name Dose Route Start Last Admin Trade Name Freq PRN Reason Stop Dose Admin Acetaminophen 650 mg 03/15/21 20:42 Acetaminophen 325 Mg Tablet PO Q6H PRN Pain, Mild (Pain Scale 1-3) Amitriptyline HCl 100 mg 03/15/21 21:00 03/20/21 20:27 Amitriptyline Hcl 50 Mg Tablet PO 100 mg BEDTIME YNU Administration Amlodipine Besylate 10 mg 03/16/21 09:00 Amlodipine Besylate 10 Mg Tablet PO DAILY YUN Protocol Carvedilol 6.25 mg 03/15/21 21:00 03/16/21 02:24 Carvedilol 6.25 Mg Tablet PO Not Given BID YUN Protocol Fluoxetine HCl 20 mg 03/16/21 09:00 03/21/21 07:31 Fluoxetine Hcl 20 Mg Capsule PO 20 mg DAILY YUN Administration Folic Acid 1 mg 03/19/21 09:00 03/21/21 07:32 Folic Acid 1 Mg Tablet PO 1 mg DAILY YUN Administration Insulin Human Lispro 0 unit 03/16/21 07:30 03/21/21 11:32 Insulin Lispro 100 Unit/Ml 3 Ml Vial SUBCUT 6 unit QIDACHS YUN Administration Protocol Lidocaine 1 patch 03/16/21 18:30 03/21/21 07:29 Lidocaine 4 % Patch Adh..Patch TRANSDERMA 1 patch DAILY YUN Administration Protocol Multivitamins/Vitamin C 1 tab 03/19/21 09:00 03/21/21 07:31 Multivitamin Tablet PO 1 tab DAILY YUN Administration Omeprazole 40 mg 03/16/21 06:30 03/21/21 05:45 Omeprazole 40 Mg Capsule. PO 40 mg BID@0852,1155 [facility] Administration Pharmacy Consult 1 each 03/15/21 10:24 Consult Rx Perform Med Rec MISCELLANE ONCE PRN Consult order Prednisone 60 mg 03/19/21 09:30 03/21/21 07:31 Prednisone 20 Mg Tablet PO 60 mg DAILY YUN Administration Quetiapine Fumarate 50 mg 03/15/21 21:00 03/20/21 20:27 Quetiapine Fumarate 50 Mg Tablet PO 50 mg BEDTIME YUN Administration Sodium Chloride 3 ml 03/16/21 00:00 03/21/21 07:32 0.9 % Sodium Chloride Flush 3 Ml Syringe IVFLUSH 3 ml QSHIFT YUN Administration Thiamine HCl 100 mg 03/19/21 09:00 03/21/21 07:32 Thiamine Hcl 100 Mg Tablet PO 100 mg DAILY YUN Administration Labs CBC & Chem 7: 03/21/21 08:47 03/20/21 09:25 Microbiology Microbiology Results: Microbiology 03/15/21 18:10 Blood - Venous Blood Culture - Final No growth after 5 days. 03/15/21 17:09 Blood - Venous Blood Culture - Final No growth after 5 days. 03/15/21 17:44 Cerebrospinal Fluid Gram Stain - Final 03/15/21 17:44 Cerebrospinal Fluid CSF Examination - Final 03/15/21 17:44 Cerebrospinal Fluid Fluid Description - Final 03/15/21 17:44 Cerebrospinal Fluid CSF Culture - Final No growth after 3 days. Assessment and Plan (1) Hemolytic anemia: Status: Acute Assessment and Plan: hospital d#6 60yo M with DM2 (though denies prior hx), HTN, HLD, polysubstance use, schizophrenia recent admission to [facility] with AMS from [facility] 03/09-03/13/21 completely unbeknownst to the patient presented with confusion though per his [facility] case therapist, with whom psychiatry DELIVERY RN Bekah Ni spoke: Martínez reports he has known patient for over 10 years and over the last 3- 4 years his health and memory have deteriorated significantly. He cited examples of having to find him because he was lost and didn't know how to get back home (he was actually around the corner from his apt). he also reported getting called by a [employer] business development assistant stating that patient had been sitting on the bus for hours and didn't know where he was supposed to be going. Martínez reports that patient is also a [facility] client and has a [facility] worker named Marlon Castro ([phone]). Martínez reports that patient recently had services increased, but that he has been advocating for sometime for patient to be in some type of residential setting where he is supervised and medications are administered. 1. anemia, Silvano-neg hemolytic Heme consult appreciated. pending:G6PD, SPEP/RADHA, flow cytometry. Prenidonse 60mg -- started 03/19/2020 HCT remains stable 2. encephalopathy versus psychiatric decompensation LP no signs of meningitis. completed empiric treatment for Wernicke's with IV thaimin, now switched to PO thiamine given reported EtOH hx @ [facility]. NH3, B12, HIV, T pallidum EIA negative. psychiatric meds as below. seen by CARE team -- does not need inpatient level of care 3. atypical chest pain Tn-I decreased, no ischemic EKG changes. continue lidocaine patch. 4. hypoK repleted 5. HTN norvasc + coreg on hold; bp stable off those meds 6. HCV antibody positive viral load pending 7. schizophrenia fluoxetine, clonazepam, amitriptyline, quetiapine; psychiatry consult; appears to have no insight into his medical condition will need CARE/[facility] evaluation pending medical clerance 8. DM2, A1c 10.5 correction-dose lispro start metformin/glipizide upon d/c Full Code DVT pptx, Lovenox dispo:medically stable, but needs safe discharge plan
--- NOTE | 2021-03-21 16:19 | MHC.CM.PN ---
Addendum entered by Renetta Green 03/21/21 16:37: COPY OF [facility] EVALUATION REQUESTED AND RECEIVED. UPLOADED TO [employer]. Original Note: CALL TO DM TONG HOOKER GEMMA MARTE ([phone])WHO REPORTS THAT PATIENT IS ACTIVE WITH [facility] AND [facility]. [facility] WORKER LEX IS NO LONGER WORKING WITH PATIENT. GEMMA GIVES CM PATIENT'S [facility] STRATEGIC MARKETING SPECIALIST'S CONTACT (ANÍBAL [phone]) PER CONVERSATION WITH ANÍBAL, PATIENT LIVES IN A [facility] APARTMENT WITH A ROOMMATE. THEY HAVE OFFERED [facility] SERVICES FOR PATIENT, WHICH HE HAS DENIED. ANÍBAL REPORTS THAT A TONG HOOKER HAS BEEN IN MULTIPLE TIMES TO VISIT WITH PATIENT. THIS SENIOR CARE SPECIALIST ASKS THAT STAFF MEMBER ASK FOR STRATEGIC MARKETING SPECIALIST ON NEXT VISIT, CASE MANAGEMENT IS WORKING ON DEVELOPING A SAFE DISCHARGE FOR PATIENT. ANÍBAL AGREED. REFERRAL PLACED TO [facility] (PER ANÍBAL'S REQUEST) FOR DIABETIC MANAGEMENT. REFERRAL PLACED. IF PATIENT NEEDS TO SEE HIS PCP PRIOR TO SERVICES, [facility] WILL ARRANGE TRANSPORT. CASE MANAGEMENT FOLLOWING. PLAN IS FOR DC TOMORROW (03/22/21), [facility] IS UNABLE TO SEE PATIENT TODAY.
[2021-03-21 16:23] LABS: Glucose, Whole Blood 200 mg/dL (60-115)
[2021-03-21] MEDS: clonazePAM 1 MG TABLET PO (18:25)
[2021-03-21 20:33] LABS: Glucose, Whole Blood 243 mg/dL (60-115)
[2021-03-21] MEDS: Acetaminophen 325 MG TABLET 650 MG PO (20:44)
[2021-03-21] MEDS: QUEtiapine Fumarate 50 MG TABLET PO (20:45)
[2021-03-21] MEDS: Amitriptyline HCl 50 MG TABLET 100 MG PO (20:45)
[2021-03-22] VITALS (7 sets, daily range): BP systolic 141–164; BP diastolic 69–94; PULSE 84–110; RESP 16–20; TEMP 36.3–36.9; O2SAT 96–98
[2021-03-22] MEDS: 0.9 % Sodium Chloride Flush 3 ML SYRINGE IVFLUSH ×3 (01:11→15:11)
[2021-03-22] MEDS: Acetaminophen 325 MG TABLET 650 MG PO (03:36)
[2021-03-22] MEDS: Omeprazole 40 MG CAPSULE.DR PO ×2 (05:39→17:11)
[2021-03-22 07:42] LABS: Glucose, Whole Blood 131 mg/dL (60-115)
[2021-03-22] MEDS: clonazePAM 1 MG TABLET PO ×3 (09:14→23:16)
[2021-03-22] MEDS: predniSONE 20 MG TABLET 60 MG PO (09:14)
[2021-03-22] MEDS: FLUoxetine HCl 20 MG CAPSULE PO (09:14)
[2021-03-22] MEDS: Thiamine HCL 100 MG TABLET PO (09:14)
[2021-03-22] MEDS: Lidocaine 4 % Patch ADH..PATCH 1 PATCH TRANSDERMA (09:14)
[2021-03-22] MEDS: Multivitamin TABLET 1 TAB PO (09:14)
[2021-03-22] MEDS: Folic Acid 1 MG TABLET PO (09:19)
--- NOTE | 2021-03-22 10:11 | HO.PM.IMPN ---
Subjective Subjective Date of Service: 03/22/21 <Malgorzata Weems NP - Last Filed: 03/22/21 10:57> 03/22/21 <Jason Blair MD - Last Filed: 03/27/21 08:18> Interval History: Follow up Anemia. Diffuse body pain and bruising to his right thigh and abdomen <Malgorzata Weems NP - Last Filed: 03/22/21 10:57> Physical Exam Vital Signs: Vital Signs: Last Vital Signs Temp 98.4 F 03/22/21 07:37 Pulse 91 03/22/21 07:37 Resp 17 03/22/21 07:37 BP 148/69 H 03/22/21 07:37 Pulse Ox 98 03/22/21 07:37 Body Mass Index 27.3 <Malgorzata Weems NP - Last Filed: 03/22/21 10:57> Appearing in no acute distress, diffuse body pain, bruising to right thigh and abdomen lung sounds are clear to auscultation heart regular rate rhythm, clear S1, S2 positive bowel sounds, abdomen is soft, nontender neuro patient is alert x3, no focal deficits <Malgorzata Weems NP - Last Filed: 03/22/21 10:57> Objective Data Current Medications Generic Name Dose Route Start Last Admin Trade Name Freq PRN Reason Stop Dose Admin Acetaminophen 650 mg 03/15/21 20:42 03/22/21 03:36 Acetaminophen 325 Mg Tablet PO 650 mg Q6H PRN Administration Pain, Mild (Pain Scale 1-3) Amitriptyline HCl 100 mg 03/15/21 21:00 03/21/21 20:45 Amitriptyline Hcl 50 Mg Tablet PO 100 mg BEDTIME YUN Administration Amlodipine Besylate 10 mg 03/16/21 09:00 Amlodipine Besylate 10 Mg Tablet PO DAILY YUN Protocol Carvedilol 6.25 mg 03/15/21 21:00 03/16/21 02:24 Carvedilol 6.25 Mg Tablet PO Not Given BID YUN Protocol Clonazepam 1 mg 03/21/21 18:01 03/22/21 09:14 Clonazepam 1 Mg Tablet PO 1 mg TID PRN Administration Anxiety Fluoxetine HCl 20 mg 03/16/21 09:00 03/22/21 09:14 Fluoxetine Hcl 20 Mg Capsule PO 20 mg DAILY YUN Administration Folic Acid 1 mg 03/19/21 09:00 03/22/21 09:19 Folic Acid 1 Mg Tablet PO 1 mg DAILY YUN Administration Insulin Human Lispro 0 unit 03/16/21 07:30 03/22/21 07:50 Insulin Lispro 100 Unit/Ml 3 Ml Vial SUBCUT Not Given QIDACHS COUNTS INCLUDE 234 BEDS AT THE [facility] Protocol Lidocaine 1 patch 03/16/21 18:30 03/22/21 09:14 Lidocaine 4 % Patch Adh..Patch TRANSDERMA 1 patch DAILY YUN Administration Protocol Multivitamins/Vitamin C 1 tab 03/19/21 09:00 03/22/21 09:14 Multivitamin Tablet PO 1 tab DAILY YUN Administration Omeprazole 40 mg 03/16/21 06:30 03/22/21 05:39 Omeprazole 40 Mg Capsule. PO 40 mg BID@[id number],[id number] COUNTS INCLUDE 234 BEDS AT THE [facility] Administration Pharmacy Consult 1 each 03/15/21 10:24 Consult Rx Perform Med Rec MISCELLANE ONCE PRN Consult order Prednisone 60 mg 03/19/21 09:30 03/22/21 09:14 Prednisone 20 Mg Tablet PO 60 mg DAILY YUN Administration Quetiapine Fumarate 50 mg 03/15/21 21:00 03/21/21 20:45 Quetiapine Fumarate 50 Mg Tablet PO 50 mg BEDTIME YUN Administration Sodium Chloride 3 ml 03/16/21 00:00 03/22/21 09:14 0.9 % Sodium Chloride Flush 3 Ml Syringe IVFLUSH 3 ml QSHIFT YUN Administration Thiamine HCl 100 mg 03/19/21 09:00 03/22/21 09:14 Thiamine Hcl 100 Mg Tablet PO 100 mg DAILY YUN Administration <Malgorzata Weems NP - Last Filed: 03/22/21 10:57> Labs CBC & Chem 7: : 03/23/21 06:36 03/23/21 06:36 <Malgorzata Weems NP - Last Filed: 03/22/21 10:57> Microbiology Microbiology Results: Microbiology 03/15/21 18:10 Blood - Venous Blood Culture - Final No growth after 5 days. 03/15/21 17:09 Blood - Venous Blood Culture - Final No growth after 5 days. 03/15/21 17:44 Cerebrospinal Fluid Gram Stain - Final 03/15/21 17:44 Cerebrospinal Fluid CSF Examination - Final 03/15/21 17:44 Cerebrospinal Fluid Fluid Description - Final 03/15/21 17:44 Cerebrospinal Fluid CSF Culture - Final No growth after 3 days. <Malgorzata Weems NP - Last Filed: 03/22/21 10:57> Assessment and Plan (1) Hemolytic anemia: Status: Deleted <Malgorzata Weems NP - Last Filed: 03/22/21 10:57> Assessment and Plan: 60yo M with DM2 (though denies prior hx), HTN, HLD, polysubstance use, schizophrenia recent admission to [facility] with AMS from [facility] 03/09-03/13/21 Macrocytic anemia. All over body pain and bruising to thigh and abdomen. HH 6.8/21.6 today. No active bleeding. Normal haptoglobin type and screen, tx One unit PRBC Hematology following bone marrow biopsy Pending:G6PD, SPEP/RADHA, flow cytometry. Stop Prenidonse 60mg, started 03/19/2020 Encephalopathy versus psychiatric decompensation LP no signs of meningitis. completed empiric treatment for Wernicke's with IV thaimin, now switched to PO thiamine given reported EtOH hx @ [facility]. NH3, B12, HIV, T pallidum EIA negative. seen by CARE team, does not need inpatient level of care Atypical chest pain. elevated ddimer, tachycardia CTA pending Tn-I decreased no ischemic EKG changes. continue lidocaine patch. HypoK. resolved repleted HTN norvasc HCV antibody positive viral load pending Schizophrenia fluoxetine, clonazepam, amitriptyline, quetiapine DM2, A1c 10.5 correction-dose lispro start metformin/glipizide upon d/c Full Code DVT pptx, Lovenox Dispo: Inpatient for further testing for MDS Attending: Dr. Blair <Malgorzata Weems NP - Last Filed: 03/22/21 10:57>
--- NOTE | 2021-03-22 10:19 | MHC.CM.PN ---
[facility] IS WILLING TO ACCEPT PATIENT FOR SERIVCES. ORIGINAL PLAN WAS FOR DC TODAY; HOWEVER, PATIENT HAS ABNORMAL LABS AND A CONSULT WITH ONCOLOGY/HEMATOLOGY CASE MANAGEMENT TO CONTINUE TO UPDATE [facility] AND [facility] CONTACTS.
--- NOTE | 2021-03-22 11:32 | MHC.CM.PN ---
[facility] PHOTOGRAPHY SPOTTER ANÍBAL ROBLES ([phone]) MADE AWARE OF PLAN FOR PATIENT TO REMAIN FOR BIOPSY AND TRANSFUSION. SHE IS ALSO NOW AWARE THAT [facility] IS OFFERING SERVICES AT DISCHARGE.
[2021-03-22 11:44] LABS: Glucose, Whole Blood 146 mg/dL (60-115)
--- NOTE | 2021-03-22 12:03 | MHC.CM.PN ---
[facility] contact Anamika ([phone]) has a copy of patient's HCP. One agent is patient's son in [place], and the second agent is patient's father (who recently passed) Copy requested
[2021-03-22 12:56] LABS: HCV Log PCR <1.18 NOT DETECTED Log IU/mL (NOT DETECTED); HepC Viral Load <15 NOT DETECTED IU/mL (NOT DETECTED)
[2021-03-22 13:18] LABS: Hematocrit 23.9 % (42-52); Hemoglobin 7.8 g/dl (14.0-18.0)
[2021-03-22 14:53] LABS: Anion Gap 14 (12-20); Blood Urea Nitrogen 13 mg/dL (9-16); Carbon Dioxide 22 mmol/L (22-29); Chloride 104 mmol/L (96-108); Estimated Glomerular Filt Rate > 60; Glucose Random 225 mg/dL (60-115); Potassium 3.4 mmol/L (3.3-5.1); Sodium 137 mmol/L (135-145)
[2021-03-22 17:09] LABS: Glucose, Whole Blood 192 mg/dL (60-115)
[2021-03-22] MEDS: Insulin Lispro 100 UNIT/ML 3 ML VIAL SUBCUT ×2 (17:12→20:26)
--- NOTE | 2021-03-22 18:01 | PC.NURSE ---
Pt very easily agitated all day. Pt is alert to self, knows hes in a hospital and knows year not month at this time. Pt refuses bed alarm at this time. Does have nonslip socks and shoes on at this time. Telesitter remains in place. Pt very upset and wont listen to reason at times. In early evening - pt aned RN spilled some water on floor- RN cleaned up all water. RN then in dean outside pt room and saw pt lower himself to the floor and yell out hello Staff member in T also saw this - said he sat down on the florr- RN went into room to assess pt and pt was claiming he fell and hit himself hard against the bed This action did not occur. InterpreteRn suggested bed alarm again - pt refuses. tariff publishing agent to room multiple times through the day to explain plan and situation to pt but pt claims someone said he was leaving today and other claims that havnt been said to pt. Rn being patient and trying to communicate calmly with pt to help him understand plan of care. Will continue this plan. Telesitter remains in place. Pt is aware is NPO after 00:00 at this time. RBC hanging at this time. Will report all to oncoming RN and will continue plan.
[2021-03-22] MEDS: oxyCODONE HCl Immed Release 5 MG TABLET PO (18:20)
[2021-03-22 20:15] LABS: Glucose, Whole Blood 178 mg/dL (60-115)
[2021-03-22] MEDS: Amitriptyline HCl 50 MG TABLET 100 MG PO (20:26)
[2021-03-22] MEDS: QUEtiapine Fumarate 50 MG TABLET PO (20:26)
[2021-03-23] MEDS: 0.9 % Sodium Chloride Flush 3 ML SYRINGE IVFLUSH ×2 (00:11→09:07)
[2021-03-23] MEDS: oxyCODONE HCl Immed Release 5 MG TABLET PO ×2 (00:21→09:08)
[2021-03-23 04:00] VITALS: BP 125/62; PULSE 95; RESP 16; TEMP 36.1; O2SAT 98
[2021-03-23 06:49] LABS: MANUAL DIFF FLAG NO
[2021-03-23 06:58] LABS: Basophils Percent Auto 0.5 % (0-2); Eosinophils Absolute Auto 0.1 X10*3/uL (0.0-0.4); Eosinophils Percent Auto 0.6 % (0-4); Hematocrit 25.3 % (42-52); Hemoglobin 8.1 g/dl (14.0-18.0); Imm Gran Abs Auto 0.36 X10*3/uL (0.00-0.03); Imm Gran Pct Auto 4.1 % (0.0-0.4); Lymphocytes Absolute Auto 2.4 X10*3/uL (1.2-4.9); Lymphocytes Percent Auto 26.9 % (20-40); Mean Corpuscular Hemoglobin 32.4 pg (27.0-33.0); Mean Corpuscular Volume 101.2 fL (80-98); Mean Platelet Volume 8.9 fL (9.4-12.4); Monocytes Absolute Auto 0.7 X10*3/uL (0.1-1.2); Monocytes Percent Auto 8.4 % (2-11); Neutrophils Absolute Auto 5.3 X10*3/uL (2.0-8.3); Neutrophils Percent Auto 59.5 % (45-73); Platelet Count 336 X10*3/uL (160-400); Red Cell Distribution Width 17.6 % (11.0-16.0); White Blood Count 8.9 X10*3/uL (4.8-10.8)
[2021-03-23 07:08] LABS: Prothrombin Time 12.1 SEC (10.8-13.0)
[2021-03-23 07:09] LABS: NRBC Pct Auto 1.6 /100WBC (0.0-0.2)
[2021-03-23 07:15] VITALS: BP 152/77; PULSE 90; RESP 15; TEMP 36.7; O2SAT 99
[2021-03-23 07:19] LABS: Anion Gap 10 (12-20); Blood Urea Nitrogen 12 mg/dL (9-16); Calcium 8.9 mg/dL (8.4-10.2); Carbon Dioxide 27 mmol/L (22-29); Chloride 105 mmol/L (96-108); Creatinine Clr Calc Pharmacy 89.3; Estimated Glomerular Filt Rate > 60; Glucose Random 130 mg/dL (60-115); Potassium 3.4 mmol/L (3.3-5.1); Sodium 139 mmol/L (135-145)
[2021-03-23 08:05] LABS: Glucose, Whole Blood 112 mg/dL (60-115)
[2021-03-23] MEDS: Multivitamin TABLET 1 TAB PO (09:06)
[2021-03-23] MEDS: Lidocaine 4 % Patch ADH..PATCH 1 PATCH TRANSDERMA (09:06)
[2021-03-23] MEDS: clonazePAM 1 MG TABLET PO ×2 (09:06→15:43)
[2021-03-23] MEDS: FLUoxetine HCl 20 MG CAPSULE PO (09:06)
[2021-03-23] MEDS: Folic Acid 1 MG TABLET PO (09:06)
[2021-03-23] MEDS: Thiamine HCL 100 MG TABLET PO (09:07)
[2021-03-23 12:00] VITALS: BP 147/89; PULSE 93; RESP 19; TEMP 36.7; O2SAT 100
[2021-03-23 12:24] LABS: Glucose, Whole Blood 100 mg/dL (60-115)
[2021-03-23 12:26] LABS: Bone Marrow SEE SEPARATE REPORT
--- NOTE | 2021-03-23 12:32 | P.DS_ITS ---
DS: Providers Provider Date of Service: 03/23/21 Date of admission: 03/15/21 20:42 Primary care physician: Unknown Physician Consults: 03/15/21 15:08 Consult to Crisis Stat Reason for consultation: ?OD Has provider been notified: Yes 03/15/21 20:42 Consult to Neurology Routine Consulting Provider: [facility] Reason for consultation: Confusion; Memory impairement; Unstady; Recurrant Falls 03/16/21 18:16 Consult to Psychiatry Routine Consulting Provider: Psych Covering Reason for consultation: AMS, schizophrenia, poor insight 03/17/21 12:19 Consult to Hematology / Oncology Routine Consulting Provider: [facility] Oncology/Hematology Reason for consultation: vashti-negat hemolytic anemia 03/20/21 10:06 Consult to Care Team Routine Comment: Reason for consultation: poor insight, recently admitted to [facility], now her,e medically clear 03/20/21 13:10 Consult to Crisis Stat Reason for consultation: medically cleared, to determined if patient needs inpatient level of care DS: Diagnosis Discharge Diagnosis (1) Anemia: Status: Acute (2) Schizoaffective disorder, bipolar type: Status: Acute DS: Medications Discharge Medications Home Medications: Home Medications Medication Instructions Recorded Confirmed amitriptyline 100 mg PO BEDTIME 03/15/21 03/15/21 amlodipine 10 mg PO DAILY 03/15/21 03/15/21 carvedilol 6.25 mg PO BID 03/15/21 03/15/21 clonazepam 1 mg PO TID 03/15/21 03/15/21 fluoxetine 20 mg PO DAILY 03/15/21 03/15/21 naproxen 500 mg PO BIDPC 03/15/21 03/15/21 omeprazole 40 mg PO BID 03/15/21 03/15/21 quetiapine 300 mg PO BEDTIME 03/15/21 03/15/21 DS: Summary Hospital Course Hospital Course: 60-year-old Turkish-speaking male with past medical history of hypertension, GERD, anxiety, depression presented to the hospital with a chief complaint of confusion. Patient is a poor historian. Spoke with the ER staff, patient's family and also reviewed the records. Reportedly patient had confusion-refers to memory impairment as per the family; and has been having unsteady gait, dizzy evening while he was walking he was leaning on to the family member but did not have any fall. Patient also had nausea vomiting and diarrhea. Patient mentioned that he has pain all over his body. 60yo M with DM2 (though denies prior hx), HTN, HLD, polysubstance use, schizophrenia recent admission to [facility] with AMS from [facility] 03/09-03/13/21 presented to with confusion Encephalopathy versus psychiatric decompensation Brain CT was unremarkable. He was evaluated by the neurologist who felt that his clinical picture was more suggestive of psychosomatic issue. Brain CT was unremarkable. LP showed no signs of meningitis. He has completed empiric treatment for Wernicke's with IV thaimine, and has been switched to PO thiamine given reported EtOH hx @ [facility]. NH3, B12, HIV, T pallidum EIA negative. He was seen by CARE team and does not need inpatient level of care. Per his [facility] dumper operator over the last 3- 4 years his health and memory have deteriorated significantly. The patient is also a [facility] client and has a [facility] worker and recently had services increased. He will be discharged back to [facility] apartment with [facility]NA service. He will be followed by his [facility] upper caser. anemia. His H/H was noted to trend down and anemia workup was done. Patient was evaluated by Hematology. Initially thought to be related to hemolytic anemia and was started on prednisone. However haptoglobin returned to normal. Prednisone was discontinued. His H/H drifted down further and he required blood transfusion. H/H has remained stable. Bone marrow biopsy was completed 03/23. Studies pending on discharge:G6PD, SPEP/RADHA, flow cytometry; result of bone marrow biopsy. patient should follow up with hematology for further management and outpatient CBC. DM - will be discharged home on metformin and should follow up with PCP for further management. . He will be discharged home with [facility]NA for further diabetic education. Time Spent with Patient Time attestation: Total time spent providing and/or coordinating discharge services: Discharge coordination time: Greater than 30 minutes Physical Exam Vital Signs: Vital Signs: Last Vital Signs Temp 98.1 F 03/23/21 07:15 Pulse 90 03/23/21 07:15 Resp 15 03/23/21 07:15 BP 152/77 H 03/23/21 07:15 Pulse Ox 99 03/23/21 07:15 Body Mass Index 27.3 Awake alert, in no acute distress Head atraumatic, normocephalic; Pupils equal, round and reactive to light Breathing unlabored, no respiratory distress Able to move all 4 extremities spontaneously, no leg edema DS: Data Data Completed and Pending Pending studies at discharge: Pending at discharge 03/23/21 12:00 Cytology [PTH] Routine Labs on day of discharge: Laboratory Results - last 24 hr 03/19/21 03/22/21 03/22/21 06:54 12:56 12:56 WBC RBC Hgb 7.8 L Hct 23.9 L MCV MCH MCHC RDW Plt Count MPV Immature Gran % (Auto) Neut % (Auto) Lymph % (Auto) Dickinson % (Auto) Eos % (Auto) Baso % (Auto) Lymph # (Auto) Dickinson # (Auto) Eos # (Auto) Baso # (Auto) Abs Immat Gran (auto) Absolute Neuts (auto) Absolute Nucleated RBC Nucleated RBC % (auto) Smear Path Review PT INR Sodium Potassium Chloride Carbon Dioxide Anion Gap BUN Creatinine Estim Creat Clear Calc Estimated GFR POC Glucose Random Glucose Calcium Hep C Viral Load <15 NOT DETECTED Hep C Viral Load Log <1.18 NOT DETECTED Blood Type O Positive Antibody Screen NEGATIVE Crossmatch See Detail 03/22/21 03/22/21 03/22/21 14:15 17:05 20:10 WBC RBC Hgb Hct MCV MCH MCHC RDW Plt Count MPV Immature Gran % (Auto) Neut % (Auto) Lymph % (Auto) Dickinson % (Auto) Eos % (Auto) Baso % (Auto) Lymph # (Auto) Dickinson # (Auto) Eos # (Auto) Baso # (Auto) Abs Immat Gran (auto) Absolute Neuts (auto) Absolute Nucleated RBC Nucleated RBC % (auto) Smear Path Review PT INR Sodium 137 Potassium 3.4 Chloride 104 Carbon Dioxide 22 Anion Gap 14 BUN 13 Creatinine 0.95 Estim Creat Clear Calc 79.0 Estimated GFR > 60 POC Glucose 192 H 178 H Random Glucose 225 H D Calcium 9.0 D Hep C Viral Load Hep C Viral Load Log Blood Type Antibody Screen Crossmatch 03/23/21 03/23/21 03/23/21 06:36 06:36 06:36 WBC 8.9 RBC 2.50 L D Hgb 8.1 L Hct 25.3 L MCV 101.2 H MCH 32.4 MCHC 32.0 RDW 17.6 H Plt Count 336 MPV 8.9 L Immature Gran % (Auto) 4.1 H Neut % (Auto) 59.5 Lymph % (Auto) 26.9 Dickinson % (Auto) 8.4 Eos % (Auto) 0.6 Baso % (Auto) 0.5 Lymph # (Auto) 2.4 Dickinson # (Auto) 0.7 Eos # (Auto) 0.1 Baso # (Auto) 0.0 Abs Immat Gran (auto) 0.36 H Absolute Neuts (auto) 5.3 Absolute Nucleated RBC 0.140 H Nucleated RBC % (auto) 1.6 H Smear Path Review SEE NOTE PT 12.1 INR 1.0 Sodium 139 Potassium 3.4 Chloride 105 Carbon Dioxide 27 Anion Gap 10 L BUN 12 Creatinine 0.84 Estim Creat Clear Calc 89.3 Estimated GFR > 60 POC Glucose Random Glucose 130 H D Calcium 8.9 Hep C Viral Load Hep C Viral Load Log Blood Type Antibody Screen Crossmatch 03/23/21 03/23/21 07:19 12:15 WBC RBC Hgb Hct MCV MCH MCHC RDW Plt Count MPV Immature Gran % (Auto) Neut % (Auto) Lymph % (Auto) Dickinson % (Auto) Eos % (Auto) Baso % (Auto) Lymph # (Auto) Dickinson # (Auto) Eos # (Auto) Baso # (Auto) Abs Immat Gran (auto) Absolute Neuts (auto) Absolute Nucleated RBC Nucleated RBC % (auto) Smear Path Review PT INR Sodium Potassium Chloride Carbon Dioxide Anion Gap BUN Creatinine Estim Creat Clear Calc Estimated GFR POC Glucose 112 100 Random Glucose Calcium Hep C Viral Load Hep C Viral Load Log Blood Type Antibody Screen Crossmatch Discharge Plan Discharge Patient Disposition: Home Health Service Discharge Diagnosis: anemia Referrals: Janet Valencia MD [Physician] - 1 Week Yamilet Marie MD [Physician] - 1 Week Discharge Medications: New metformin 500 mg tablet 500 mg PO BID 30 Days Qty: 60 RF: 0 quetiapine 50 mg Tablet 50 mg PO BEDTIME 30 Days Qty: 30 RF: 0 thiamine HCl (vitamin B1) 100 mg tablet 100 mg PO DAILY 30 Days Qty: 30 RF: 0 Continued carvedilol 6.25 mg Tablet 6.25 mg PO BID RF: 0 clonazepam 1 mg Tablet 1 mg PO TID RF: 0 omeprazole 40 mg Capsule,Delayed Release(Dr/Ec) 40 mg PO BID RF: 0 amitriptyline 50 mg Tablet 100 mg PO BEDTIME RF: 0 amlodipine 10 mg Tablet 10 mg PO DAILY RF: 0 fluoxetine 20 mg Capsule 20 mg PO DAILY RF: 0 Discontinued quetiapine 300 mg Tablet 300 mg PO BEDTIME RF: 0 naproxen 500 mg Tablet 500 mg PO BIDPC RF: 0 Discharge Orders: Discharge Order (Routine); Ordered 03/23/21 Ordered By: Dahlia Dupree Diet: advance to usual diet Activity on Discharge: As tolerated Stand Alone Forms: Patient Portal Discharge page Other Ambulatory Orders: Complete Blood Count Auto Diff (Routine) Timeframe: 1 Week Facility: [facility] - Location: Laboratory Ordered By: Dahlia Dupree Care Plan Goals: See below Health Concerns: anemia diabetes Plan of Treatment: anemia - results of bone marrow biopsy are currently pending. Please call kettle cleaner to schedule a follow-up appointment and PCP to repeat CBC. Encephalopathy- patient at baseline mental status Diabetes - will be started on metformin. should call to schedule follow up appointment with PCP Assessment: See discharge summary
--- NOTE | 2021-03-23 14:01 | W.MHC.F2F ---
Service Date Service Date: 03/23/21 Encounter Date of encounter: 03/23/21 Reasons for Services Reason for alf: diabetic teaching MD Overseeing Care: Yamilet Marie Homebound: Leaving the home is medically contraindicated at this time without the asist of a device and/or another person due th the listed conditions above and below. Reason homebound: cognitively impaired / unsafe Certification: Based on the above findings, I certify that this patient is confined to the home and needs intermittent alf care, physical therapy and/or speech therapy, or continues to need occupational therapy. The patient is under my care, and I have initiated the establishment of the plan of care. The patient will be followed by a physician who will periodically review the plan of care.
--- NOTE | 2021-03-23 15:18 | MHC.CM.PN ---
Addendum entered by Samantha Napoles RN 03/23/21 15:52: D/C SUMMARY PAPER FAXED TO [facility] AND [facility] CM ANÍBAL ROBLES PER THEIR REQUESTS. Addendum entered by Samantha Napoles RN 03/23/21 15:23: PT HAS PCP W/DR. VIZCARRA AT 9:45AM ON 04/03/21 Original Note: PT DISCHARGING TODAY HOME W/[facility] FOR [facility] AND RESUMPTION OF [facility] APT & SERVICES, PT WILL BE TRANSPORTED VIA [facility]. [facility] WILL BE AT PT'S HOME AT 11AM 03/24/21
== END 2021-03-23 17:34 | disposition home health service (06) | DRG 52 ==
LOC: HO.ED 17:26 → HO.EDOVER 03-16 00:03 → HO.S3 03-16 00:27
PROVIDERS: Family Medicine; Internal Medicine Medical Oncology; Nurse Practitioner Acute Care; Physician Assistant; Radiology Diagnostic Radiology; Admitting Provider Hospitalist; Emergency Provider Emergency Medicine Emergency Medical Services; Visit Provider Family Medicine
PROC: 009U3ZZ Drainage of Spinal Canal, Percutaneous Approach (ICD-10-PCS; CPT 62270; principal; 2021-03-15 18:00)
PROC: 07DR3ZX Extraction of Iliac Bone Marrow, Percutaneous Approach, Diagnostic (ICD-10-PCS; CPT 38221; principal; 2021-03-23 10:30)
DX: G92 Toxic encephalopathy (principal); D58.9 Hereditary hemolytic anemia, unspecified; F25.0 Schizoaffective disorder, bipolar type; E87.6 Hypokalemia; I10 Essential (primary) hypertension; B19.20 Unspecified viral hepatitis C without hepatic coma; Z87.891 Personal history of nicotine dependence; K21.9 Gastro-esophageal reflux disease without esophagitis; Z20.822 Contact with and (suspected) exposure to COVID-19; Z79.899 Other long term (current) drug therapy
CPT/HCPCS: 36415; 38220; 62328; 70450; 71045; 74177; 78580; 80048; 80053; 80076; 80143; 80179; 80307; 80320; 81001; 82140; 82247; 82248; 82436; 82607; 82728; 82746; 82784; 82947; 82955; 83010; 83036; 83540; 83605; 83615; 83690; 83735; 83880; 83930; 83935; 84133; 84145; 84155; 84165; 84300; 84443; 84484; 85014; 85018; 85025; 85027; 85045; 85060; 85097; 85379; 85384; 85610; 85730; 86140; 86334; 86704; 86706; 86769; 86780; 86803; 86850; 86880; 86900; 86901; 86923; 87015; 87040; 87070; 87205; 87340; 87389; 87522; 87633; 87635; 88184; 88185; 88237; 88264; 88280; 88305; 88311; 88313; 89051; 93005; 96365; 96375; 99152; 99285; A9540; J1650; J2270; J3411; P9016; Q9967

== ENCOUNTER 2021-05-02 07:54 | Outpatient (REF) | payer MEDICAID, SELFPAY ==
--- NOTE | ~2021-05-02 | US_ITS ---
EXAMINATION: US ABDOMEN COMPLETE CLINICAL INFORMATION: Chronic hepatitis C. COMPARISON: CT abdomen and pelvis 03/15/2021. Ultrasound abdomen 04/02/2018 and 04/06/2015. TECHNIQUE: Real-time imaging of the abdominal viscera. FINDINGS: PANCREAS: Normal. ABDOMINAL AORTA: The proximal, mid, and distal segments are normal in caliber. INFERIOR VENA CAVA: Visualized portions are normal. LIVER: Liver echotexture is slightly heterogeneous. The contour of the liver is slightly irregular or scalloped questionable for mild cirrhotic changes. No focal liver lesion or biliary duct dilatation is seen. GALLBLADDER: The gallbladder is physiologically distended without evidence of stones, sludge, polyps, or wall thickening. COMMON BILE DUCT: Normal in caliber measuring 0.40 cm in diameter. RIGHT KIDNEY: There is a 1.8 x 2.2 x 1.9 cm cyst in the lower pole. No hydronephrosis or renal calculi. The kidney measures 11.9 cm in maximum dimension. LEFT KIDNEY: There is a 0.8 x 0.9 x 1.0 cm cyst in the midpole. No hydronephrosis or renal calculi. The kidney measures 11.7 cm in maximum dimension. SPLEEN: Upper normal in size. The spleen measures 12.6 cm in maximum dimension. FREE FLUID: There is no ascites. There is a right pleural effusion. US/US abdomen complete IMPRESSION: Slightly heterogeneous liver with irregular contour questionable for mild cirrhosis. Bilateral renal cysts. Right pleural effusion.
== END 2021-05-02 07:55 | disposition home or self-care (01) ==
LOC: HO.US 07:54
PROVIDERS: PCP Student in an Organized Health Care Education/Training Program; Visit Provider Pediatrics
DX: B18.2 Chronic viral hepatitis C (principal)
CPT/HCPCS: 76700

== ENCOUNTER 2021-05-30 12:48 | Emergency (ER) | payer SELFPAY ==
[2021-05-30 12:53] VITALS: BP 109/45; PULSE 90; O2SAT 98
[2021-05-30 13:50] VITALS: BP 100/63; PULSE 87; RESP 18; TEMP 36.7; O2SAT 94; BMI 27.8
== END 2021-05-30 18:10 | disposition left against medical advice (07) ==
PROVIDERS: Emergency Provider Emergency Medicine
DX: R10.9 Unspecified abdominal pain (principal)
CPT/HCPCS: 99281; 99282

== ENCOUNTER → 2021-07-14 07:45 | Outpatient (REF) | payer MEDICAID, SELFPAY ==
--- NOTE | 2021-07-14 08:30 | CA_ITS ---
Transthoracic Echocardiogram Patient (Last, First, Middle): Maroi Alvarez F Gender: Male Date of : 1960 Age: 61 Procedure Date: 07/14/2021 Procedure Type: Transthoracic Echocardiogram Location: OP Height: 172.72 cm Weight: 77.11 kg BSA: 1.91 m2 Heart Rate: bpm BP: 102 / 62 mmHg Email Marketing Executive: MERY Newman MD: Shimon Winkler MD Symptoms: I42.9 CMP Study Quality: Good ECG Rhythm: Sinus Conclusions: - The calculated ejection fraction is 51% by biplane method. There is mild global hypokinesis. Findings Procedure Information Contrast agent, definity, is being given per protocol without apparent complications. Left Ventricle Mildly increased left ventricular cavity size. The left ventricular systolic function is mildly decreased. The calculated ejection fraction is 51% by biplane method. There is mild global hypokinesis. Prior Study Comparison Changes noted compared to prior study dated: 05/11/2016. Decrease in LVEF. Measurements 2D Linear Measurements LVIDd: 5.75 3.9-5.3/4.2-5.9 cm LVIDd Index: 3.01 2.4-3.2/2.2-3.1 cm/m2 LVIDs: 4.20 2.0-3.6 cm LVPWd: 0.71 0.7-1.1 cm 2D Systolic Function EF 4C: 54.90 >55% EF 2C: 40.80 >55% EF BiP: 50.80 >55% Mitral Valve MV Pk E: 0.59 MV PK A: 0.67 MV Decel Time: 202.00 E/A: 0.90 E'Lateral: 11.00 E'Medial: 6.74 E/E' Med: 8.70 E/E' Lat: 5.30 Diastolic Function MV Pk E: 0.59 MV Pk A: 0.67 E/A: 0.90 E'Medial: 6.74 E/E' Med: 8.70 E' Laterial: 11.00 E/E' Lat: 5.30 Updated in Other Vendor System with Status of Final Elfego Shaikh MD electronically signed on 07/15/2021 11:48:29 AM with status of Final
== END ==
LOC: HO.CARD 07:45
PROVIDERS: Visit Provider Internal Medicine Cardiovascular Disease
DX: I42.9 Cardiomyopathy, unspecified (principal)
CPT/HCPCS: 93308; Q9957

== ENCOUNTER 2022-05-09 09:51 | Outpatient (REF) | payer MEDICAID, SELFPAY ==
[2022-05-09 10:41] LABS: Cholesterol 130 mg/dL; HDL Cholesterol 33 mg/dL; LDL Cholesterol Calculated 55 mg/dl; Triglycerides 213 mg/dL
[2022-05-09 10:55] LABS: Estimated Average Glucose 91 mg/dL; Hemoglobin A1c % 4.8 %
== END 2022-05-09 09:52 | disposition home or self-care (01) ==
LOC: HO.LAB 09:51
PROVIDERS: PCP Student in an Organized Health Care Education/Training Program; Visit Provider Psychiatry & Neurology Psychiatry
DX: Z79.899 Other long term (current) drug therapy (principal)
CPT/HCPCS: 36415; 80061; 83036

== ENCOUNTER 2022-06-03 00:33 | Emergency (ER) | payer MEDICAID, SELFPAY ==
--- NOTE | ~2022-06-03 | CT_ITS ---
EXAMINATION: CT ANGIOGRAM OF THE CHEST WITH AND WITHOUT CONTRAST (CT PULMONARY ANGIOGRAM FOR PE) CLINICAL INFORMATION: Right-sided CP elevated d-dimer . COMPARISON: Chest radiographs performed earlier today. TECHNIQUE: Prior to contrast administration, noncontrast localization images were obtained. Subsequently, multidetector volumetric imaging was performed from the thoracic inlet to below the diaphragms following the administration of 80 mL Omnipaque 350 intravenous contrast. No contrast reaction reported Sagittal, coronal, and MIP oblique sagittal reformatted images were obtained on the CT workstation, uploaded to PACS, and reviewed. This CT examination was performed using dose optimization techniques as appropriate, variously including the following: *Automated exposure control *Adjustment of mA and/or kV according to patient size (this includes techniques or standardized protocols for targeted exams where dose is matched to indication/reason for exam; i.e. extremities or head) *Use of iterative reconstruction technique Total exam dose-length product 334 mGy-cm FINDINGS: QUALITY OF STUDY/CONTRAST BOLUS: Satisfactory. PULMONARY ARTERIES: No central or segmental pulmonary emboli. THORACIC AORTA: No aneurysm or dissection. Minimal atherosclerosis. LUNGS/PLEURA/AIRWAYS: No focal consolidation, nodules or masses. Mild right atelectasis/scarring. MEDIASTINUM: Normal heart size. No pericardial effusion. No hilar or mediastinal lymphadenopathy. No evidence of septal bowing or right heart strain. Generalized mild esophageal dilatation and mural thickening. CHEST WALL/AXILLA: No axillary or internal mammary lymphadenopathy. Mild bilateral gynecomastia. OSSEOUS STRUCTURES: Mild degenerative changes. No suspicious abnormality. UPPER ABDOMEN: Fluid attenuation cyst laterally in the left kidney measuring 1.4 cm (image 59, series 5). Mild nodular hypertrophy of the left adrenal gland without significant change. No reflux of contrast into the hepatic veins to suggest elevated right heart pressures. CT/CT angio chest PE protocol IMPRESSION: 1. No evidence for pulmonary embolism. 2. No acute cardiopulmonary process. Mild posterior right basilar atelectasis/scarring. 3. Other incidental findings detailed above. Generalized mild dilatation of the esophagus in mural thickening does not appear acute. Correlate with possible history of gastroesophageal reflux/esophagitis. VTE: Negative.
--- NOTE | ~2022-06-03 | XR_ITS ---
EXAMINATION: XR CHEST CLINICAL INFORMATION: Chest pain COMPARISON: 03/15/2021 TECHNIQUE: 2 views of the chest were obtained. FINDINGS: Cardiac leads overlie the chest. The lungs are well expanded. There is no focal consolidation, edema, or effusion. No pneumothorax. The cardiomediastinal silhouette is within normal limits. No acute osseous abnormality. XR/XR chest 2V IMPRESSION: Clear lungs.
[2022-06-03 00:42] VITALS: BP 146/84; PULSE 80; RESP 14; O2SAT 99; BMI 26.6
--- NOTE | 2022-06-03 00:46 | ECG_ITS ---
Test Reason : cp Blood Pressure : / mmHG Vent. Rate : 082 BPM Atrial Rate : 082 BPM P-R Int : 132 ms QRS Dur : 088 ms QT Int : 400 ms P-R-T Axes : 064 025 030 degrees QTc Int : 467 ms Normal sinus rhythm Minimal voltage criteria for LVH, may be normal variant ( Sokolow-Singh ) Borderline ECG No significant changes when compared with the previous EKG of 16 mar 2021 Referred By: Cayden Reza Electronically Signed By:YVONNE MCLAUGHLIN
--- NOTE | 2022-06-03 00:49 | ED_ITS ---
HPI - Chest Pain General Chief Complaint: Chest Pain Stated Complaint: CHEST PAIN AFTER WAKING UP AT POLICE STATION Time Seen by Provider: 06/03/22 00:45 Source: patient, EMS and per diem interpreter Mode of arrival: ambulatory Limitations: no limitations History of Present Illness HPI narrative: 61 years old male was just released from the police custody felt right-sided chest pain. Patient failed right-sided chest pain but 2 hours ago after he was released from the police custody, it is localized to the right chest, tender to touch, increase with movement or taking a deep breath, pain is constant about 10/10, no shortness of breath, no fever or chills. Patient also been having headache that started with the chest pain after he was released from the police custody, last alcohol drink was 2 days ago. Patient with history of diabetes, substance abuse, hyperkalemia. Related Data Home Medications Medication Instructions Recorded Confirmed amitriptyline 50 mg tablet 100 mg PO BEDTIME 03/15/21 03/29/21 amlodipine 10 mg tablet 10 mg PO DAILY 03/15/21 03/29/21 carvedilol 6.25 mg tablet 6.25 mg PO BID 03/15/21 03/29/21 clonazepam 1 mg tablet 1 mg PO TID 03/15/21 03/29/21 fluoxetine 20 mg capsule 20 mg PO DAILY 03/15/21 03/29/21 omeprazole 40 mg capsule,delayed 40 mg PO BID 03/15/21 03/29/21 release Previous Rx's Medication Instructions Recorded alcohol swabs (Alcohol Pads) 1 pad topical QIDACHS #200 ea 03/23/21 blood sugar diagnostic (FreeStyle #10 ea 03/23/21 Lite Strips) blood-glucose meter (FreeStyle #1 ea 03/23/21 Lite Meter) lancets 28 gauge (FreeStyle #100 ea 03/23/21 Lancets) metformin 500 mg tablet 500 mg PO BID 30 days #60 tabs 03/23/21 quetiapine 50 mg tablet 50 mg PO BEDTIME 30 days #30 tabs 03/23/21 thiamine HCl (vitamin B1) 100 mg 100 mg PO DAILY 30 days #30 tabs 03/23/21 tablet Allergies Allergy/AdvReac Type Severity Reaction Status Date / Time lisinopril Allergy Intermediate Swelling Verified 05/30/21 13:22 fish derived [FISH] Allergy Unknown UNKNOWN Verified 05/30/21 13:22 turkey [TURKEY] Allergy Unknown UNK Verified 05/30/21 13:22 Review of Systems Review of Systems: All other systems are reviewed and are negative Constitutional: Reports as per HPI and Reports no additional constitutional complaints Eyes: Reports as per HPI and Reports no additional eye complaints Reports system reviewed and no additional complaints, except as documented Cardiovascular: Reports as per HPI and Reports no additional cardiovascular complaints Respiratory: Reports as per HPI and Reports no additional respiratory complaints Gastrointestinal: Reports as per HPI and Reports no additional gastrointestinal complaints Genitourinary: Reports no additional female genitourinary complaints Musculoskeletal: Reports no additional musculoskeletal complaints Skin/Breast: Reports system reviewed and no additional complaints, except as docu Psychiatric: Reports no additional psychiatric complaints Endocrine: Reports no additional endocrine complaints Hematologic/Lymphatic: Reports no additional hematologic/lymphatic complaints Allergic/Immunologic: Reports no additional allergic/immunologic complaints Reports system reviewed and no additional complaints, except as documented and Reports Abnormal speech present [facility] Past Medical History Medical History Diabetes Hyperkalemia Hypertension Schizo affective schizophrenia Substance abuse Social History Social History Household Members: None Housing: Apartment Do you presently have visiting nurse or other home services: No Alcohol intake: current Alcohol intake frequency: does not drink Patient Tobacco Use Status: Current someday Tobacco user Substance Use Type: Marijuana Advance Directives: No Advance Directives Information Provided: Yes service: No Current occupational status: unemployed Physical Exam Vital Signs: Vital Signs: Last Vital Signs Pulse 98 06/03/22 05:01 Resp 16 06/03/22 05:01 BP 142/81 H 06/03/22 05:01 Pulse Ox 100 06/03/22 05:01 O2 Del Method 06/03/22 05:01 BMI result Body Mass Index 26.6 Vital signs have been reviewed as appeared to be correct. Blood pressure normal. Heart rate normal. Respiration rate normal. Temperature normal. Oxygen saturation normal. Appearance: Alert. Oriented X3. No acute distress. Head: Normal external exam. Normocephalic. Atraumatic. No Stauffer signs noted. No raccoon eyes noted Eyes: PERRLA. EOMI. Conjunctiva and sclera normal. Eyelids normal. ENT: TM's Normal. Pharynx normal. Uvula midline. Moist mucous membranes. No trismus noted. No drooling noted. No muffled voice noted. Neck: Normal inspection. Neck supple. FROM. No adenopathy. Thyroid Normal. No meningeal signs. No neck mass noted. CVS: Normal heart rate and rhythm. Heart sound normal. No murmurs noted. Pulses normal throughout. Respiratory: No respiratory distress. Painless inspiration. Breath sounds normal. No wheezes/rales/rhonchi noted. Reproducible tenderness to the right side of the chest diffusely.. No accessory muscle usage noted or decreased air movement noted. Abdomen: Soft and nontender. Bowel sounds normal in all 4 quadrants. No distention noted. No organomegaly noted. No visible injury noted. Back: No CVA tenderness. Full range of motion noted. Skin: Skin warm and dry. Normal skin color. Normal skin turgor. No rashes/lesions/lacerations noted. Extremities: No lower extremity edema. Extremities exhibit normal range of motion. Extremities nontender. Neuro: Oriented X 3. Cranial nerve exam: II-XII are grossly intact No motor deficit. No sensory deficit. Reflexes normal. Course Course Course Narrative: 61 years old male came in for evaluation of right-sided chest pain after was re leased from the police custody last minute, physical exam is more consistent with reproducible right side chest wall pain. Patient had unremarkable cardiac markerx2. Also unremarkable D-dimer. Will discharge the patient MDM - Chest Pain Medical Records Data Attestation: I reviewed the patient's medical records. Lab Data Attestation: I reviewed the patient's lab results. Result diagrams: 06/03/22 01:08 06/03/22 01:08 Labs: Lab Results 06/03/22 06/03/22 06/03/22 Range/Units 00:58 01:08 01:08 WBC 10.4 (4.8-10.8) X10*3/uL RBC 4.43 L (4.60-5.80) X10*6/uL Hgb 14.4 (14.0-18.0) g/dl Hct 42.0 (42.0-52.0) % MCV 94.8 (80.0-98.0) fL MCH 32.5 (27.0-33.0) pg MCHC 34.3 (31.0-36.0) g/dl RDW 11.8 (11.0-16.0) % Plt Count 268 (160-400) X10*3/uL MPV 9.2 L (9.4-12.4) fL Immature Gran % (Auto) 0.4 (0.0-0.4) % Neut % (Auto) 70.9 (45-73) % Lymph % (Auto) 19.0 L (20-40) % Putnam % (Auto) 8.6 (2-11) % Eos % (Auto) 0.6 (0-4) % Baso % (Auto) 0.5 (0-2) % Lymph # (Auto) 2.0 (1.2-4.9) X10*3/uL Putnam # (Auto) 0.9 (0.1-1.2) X10*3/uL Eos # (Auto) 0.1 (0.0-0.4) X10*3/uL Baso # (Auto) 0.1 (0.0-0.2) X10*3/uL Abs Immat Gran (auto) 0.04 H (0.00-0.03) X10*3/uL Absolute Neuts (auto) 7.4 (2.0-8.3) x10*3/uL Absolute Nucleated RBC 0.000 (0.0-0.012) X10*3/uL Nucleated RBC % (auto) 0.0 (0.0-0.2) /100WBC Sodium 144 (135-145) mmol/L Potassium 3.3 (3.3-5.1) mmol/L Chloride 105 (96-108) mmol/L Carbon Dioxide 29 (22-29) mmol/L Anion Gap 13 (12-20) BUN 12 (9-16) mg/dL Creatinine 0.83 (0.5-1.4) mg/dL Estim Creat Clear Calc 89.2 Estimated GFR > 60 POC Glucose 113 (60-115) mg/dL Random Glucose 130 H D (60-115) mg/dL Calcium 9.3 (8.4-10.2) mg/dL Total Bilirubin 0.9 (0.0-1.0) mg/dL Direct Bilirubin 0.3 (0.0-0.5) mg/dL AST 88 H (5-37) U/L ALT 43 H (0-40) U/L Alkaline Phosphatase 92 D (39-117) U/L Troponin I High Sens (<3.5-35.0) ng/L B-Natriuretic Peptide (<100) pg/mL Total Protein 7.5 (6.5-8.0) g/dL Albumin 4.4 (3.5-5.0) g/dL Lipase 8 (8-78) U/L Ethyl Alcohol 77 mg/dL Influenza Type A (PCR) (Negative) Influenza Type B (PCR) (Negative) RSV RNA Qual (PCR) (Negative) SARS-CoV-2 RNA (RT-PCR) (Negative) 06/03/22 06/03/22 06/03/22 Range/Units 01:08 01:08 04:15 WBC (4.8-10.8) X10*3/uL RBC (4.60-5.80) X10*6/uL Hgb (14.0-18.0) g/dl Hct (42.0-52.0) % MCV (80.0-98.0) fL MCH (27.0-33.0) pg MCHC (31.0-36.0) g/dl RDW (11.0-16.0) % Plt Count (160-400) X10*3/uL MPV (9.4-12.4) fL Immature Gran % (Auto) (0.0-0.4) % Neut % (Auto) (45-73) % Lymph % (Auto) (20-40) % Putnam % (Auto) (2-11) % Eos % (Auto) (0-4) % Baso % (Auto) (0-2) % Lymph # (Auto) (1.2-4.9) X10*3/uL [place] # (Auto) (0.1-1.2) X10*3/uL Eos # (Auto) (0.0-0.4) X10*3/uL Baso # (Auto) (0.0-0.2) X10*3/uL Abs Immat Gran (auto) (0.00-0.03) X10*3/uL Absolute Neuts (auto) (2.0-8.3) x10*3/uL Absolute Nucleated RBC (0.0-0.012) X10*3/uL Nucleated RBC % (auto) (0.0-0.2) /100WBC Sodium (135-145) mmol/L Potassium (3.3-5.1) mmol/L Chloride (96-108) mmol/L Carbon Dioxide (22-29) mmol/L Anion Gap (12-20) BUN (9-16) mg/dL Creatinine (0.5-1.4) mg/dL Estim Creat Clear Calc Estimated GFR POC Glucose (60-115) mg/dL Random Glucose (60-115) mg/dL Calcium (8.4-10.2) mg/dL Total Bilirubin (0.0-1.0) mg/dL Direct Bilirubin (0.0-0.5) mg/dL AST (5-37) U/L ALT (0-40) U/L Alkaline Phosphatase (39-117) U/L Troponin I High Sens 4.2 5.6 (<3.5-35.0) ng/L B-Natriuretic Peptide 37 (<100) pg/mL Total Protein (6.5-8.0) g/dL Albumin (3.5-5.0) g/dL Lipase (8-78) U/L Ethyl Alcohol mg/dL Influenza Type A (PCR) NEGATIVE (Negative) Influenza Type B (PCR) NEGATIVE (Negative) RSV RNA Qual (PCR) NEGATIVE (Negative) SARS-CoV-2 RNA (RT-PCR) NEGATIVE (Negative) Imaging Data Chest x-ray: Attestation: I personally reviewed and interpreted this imaging study as follows: Radiologist's impression: No acute pathology. ECG Data ECG #1: Attestation: I personally reviewed and interpreted this ECG as follows: Interpretation: Normal sinus rhythm at 82 beats per minutes, normal axis deviation, normal intervals, LVH, no ST-T changes. Discharge Plan Discharge Clinical Impression: Anterior chest wall pain Patient Disposition: Home, Self-Care Instructions: Chest Wall Pain (ED) Prescriptions: No Action carvedilol 6.25 mg Tablet 6.25 mg PO BID clonazepam 1 mg Tablet 1 mg PO TID omeprazole 40 mg Capsule,Delayed Release(Dr/Ec) 40 mg PO BID amitriptyline 50 mg Tablet 100 mg PO BEDTIME amlodipine 10 mg Tablet 10 mg PO DAILY fluoxetine 20 mg Capsule 20 mg PO DAILY metformin 500 mg tablet 500 mg PO BID 30 Days Qty: 60 0RF quetiapine 50 mg Tablet 50 mg PO BEDTIME 30 Days Qty: 30 0RF thiamine HCl (vitamin B1) 100 mg tablet 100 mg PO DAILY 30 Days Qty: 30 0RF (DME) blood-glucose meter [FreeStyle Lite Meter] Kit See Rx Instructions .ROUTE .MEDSUPPLY Qty: 1 0RF Rx Instructions: As directed (DME) FreeStyle Lite Strips Strip See Rx Instructions .ROUTE .MEDSUPPLY Qty: 10 0RF Rx Instructions: As directed (DME) lancets [FreeStyle Lancets] 28 gauge misc See Rx Instructions .ROUTE .MEDSUPPLY Qty: 100 0RF Rx Instructions: As directed alcohol swabs [Alcohol Pads] Pads, Medicated 1 pad topical QIDACHS Qty: 200 0RF Referrals: [place],[facility] [Primary Care Provider] -
[2022-06-03 01:07] LABS: Glucose, Whole Blood 113 mg/dL (60-115)
[2022-06-03 01:15] LABS: MANUAL DIFF FLAG NO
[2022-06-03 01:19] LABS: Basophils Absolute Auto 0.1 X10*3/uL (0.0-0.2); Basophils Percent Auto 0.5 % (0-2); Eosinophils Absolute Auto 0.1 X10*3/uL (0.0-0.4); Eosinophils Percent Auto 0.6 % (0-4); Hemoglobin 14.4 g/dl (14.0-18.0); Imm Gran Abs Auto 0.04 X10*3/uL (0.00-0.03); Imm Gran Pct Auto 0.4 % (0.0-0.4); Mean Corpuscular HGB Conc 34.3 g/dl (31.0-36.0); Mean Corpuscular Hemoglobin 32.5 pg (27.0-33.0); Mean Corpuscular Volume 94.8 fL (80.0-98.0); Mean Platelet Volume 9.2 fL (9.4-12.4); Monocytes Absolute Auto 0.9 X10*3/uL (0.1-1.2); Monocytes Percent Auto 8.6 % (2-11); Neutrophils Absolute Auto 7.4 x10*3/uL (2.0-8.3); Neutrophils Percent Auto 70.9 % (45-73); Platelet Count 268 X10*3/uL (160-400); Red Blood Count 4.43 X10*6/uL (4.60-5.80); Red Cell Distribution Width 11.8 % (11.0-16.0); White Blood Count 10.4 X10*3/uL (4.8-10.8)
[2022-06-03 01:40] LABS: Alanine Aminotransferase 43 U/L (0-40); Albumin Level 4.4 g/dL (3.5-5.0); Alkaline Phosphatase 92 U/L (39-117); Anion Gap 13 (12-20); Aspartate Amino Transferase 88 U/L (5-37); B Type Natriuretic Peptide 37 pg/mL (<100); Bilirubin Direct 0.3 mg/dL (0.0-0.5); Bilirubin Total 0.9 mg/dL (0.0-1.0); Blood Urea Nitrogen 12 mg/dL (9-16); Calcium 9.3 mg/dL (8.4-10.2); Carbon Dioxide 29 mmol/L (22-29); Chloride 105 mmol/L (96-108); Creatinine Clr Calc Pharmacy 89.2; Estimated Glomerular Filt Rate > 60; Glucose Random 130 mg/dL (60-115); Lipase 8 U/L (8-78); Potassium 3.3 mmol/L (3.3-5.1); Sodium 144 mmol/L (135-145); Total Protein 7.5 g/dL (6.5-8.0); Troponin-I High Sensitivity 4.2 ng/L (<3.5-35.0)
[2022-06-03 01:56] LABS: Ethanol 77 mg/dL
[2022-06-03 02:02] LABS: Influenza A PCR NEGATIVE (Negative); Influenza B PCR NEGATIVE (Negative); Resp Syncy Virus RNA Qual PCR NEGATIVE (Negative); SARS COV2 PCR INHOUSE NEGATIVE (Negative)
[2022-06-03 04:43] LABS: Troponin-I High Sensitivity 5.6 ng/L (<3.5-35.0)
[2022-06-03 05:01] VITALS: BP 142/81; PULSE 98; RESP 16; O2SAT 100
[2022-06-03] MEDS: Ibuprofen 800 MG TABLET PO (06:33)
[2022-06-03 06:41] LABS: D Dimer High Sensitivity 273 NG/ML
[2022-06-03] MEDS: 0.9 % Sodium Chloride 1,000 ML 999 ML IV (08:13)
[2022-06-03] MEDS: iohexoL 350 MG/ML 100 ML INFUS..BTL IV (08:16)
[2022-06-03] MEDS: Acetaminophen 325 MG TABLET 975 MG PO (10:04)
== END 2022-06-03 10:15 | disposition home or self-care (01) ==
PROVIDERS: Emergency Medicine; Emergency Provider Emergency Medicine Emergency Medical Services
DX: R07.89 Other chest pain (principal); Z20.822 Contact with and (suspected) exposure to COVID-19; Z79.899 Other long term (current) drug therapy
CPT/HCPCS: 0241U; 36415; 71046; 71275; 80048; 80076; 82077; 82947; 83690; 83880; 84484; 85025; 85379; 93005; 96360; 99284; 99285; Q9967

== ENCOUNTER 2023-02-05 17:32 | Inpatient (IN) | payer OTHER, MEDICAID, SELFPAY ==
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
[2023-02-05 17:55] VITALS: BP 117/76; PULSE 98; RESP 18; TEMP 37; O2SAT 94; BMI 27.4
--- NOTE | 2023-02-05 18:32 | PC.NURSE ---
patient agitated-yelling at other people in the POD. security called. able to verbally redirect patient.
[2023-02-05 18:57] LABS: IDNOW Serial# 55D5AD1C
[2023-02-05 18:58] LABS: COVID-19 Test Negative (Negative)
[2023-02-05 19:12] LABS: MANUAL DIFF FLAG NO
[2023-02-05 19:22] LABS: Basophils Absolute Auto 0.1 X10*3/uL (0.0-0.2); Basophils Percent Auto 0.6 % (0-2); Eosinophils Absolute Auto 0.2 X10*3/uL (0.0-0.4); Hematocrit 36.4 % (42.0-52.0); Hemoglobin 12.7 g/dl (14.0-18.0); Lymphocytes Absolute Auto 3.9 X10*3/uL (1.2-4.9); Lymphocytes Percent Auto 39.4 % (20-40); Mean Corpuscular HGB Conc 34.9 g/dl (31.0-36.0); Mean Corpuscular Hemoglobin 33.8 pg (27.0-33.0); Mean Corpuscular Volume 96.8 fL (80.0-98.0); Mean Platelet Volume 9.7 fL (9.4-12.4); Monocytes Absolute Auto 0.8 X10*3/uL (0.1-1.2); Monocytes Percent Auto 8.4 % (2-11); Neutrophils Absolute Auto 4.7 x10*3/uL (2.0-8.3); Neutrophils Percent Auto 47.6 % (45-73); Platelet Count 241 X10*3/uL (160-400); Red Blood Count 3.76 X10*6/uL (4.60-5.80); Red Cell Distribution Width 11.9 % (11.0-16.0); White Blood Count 9.8 X10*3/uL (4.8-10.8)
[2023-02-05 19:35] LABS: Alanine Aminotransferase 24 U/L (0-40); Albumin Level 4.1 g/dL (3.5-5.0); Alkaline Phosphatase 89 U/L (39-117); Anion Gap 12 (12-20); Aspartate Amino Transferase 24 U/L (5-37); Bilirubin Direct 0.2 mg/dL (0.0-0.5); Bilirubin Total 0.7 mg/dL (0.0-1.0); Blood Urea Nitrogen 18 mg/dL (9-16); Calcium 9.3 mg/dL (8.4-10.2); Carbon Dioxide 26 mmol/L (22-29); Chloride 109 mmol/L (96-108); Estimated Glomerular Filt Rate > 60; Ethanol 55 mg/dL; Glucose Random 124 mg/dL (60-115); Sodium 144 mmol/L (135-145); Total Protein 6.7 g/dL (6.5-8.0)
[2023-02-05 20:29] LABS: Appearance Urine Clear; Color Urine Yellow; Glucose Urine UA Negative (Negative); Leukocyte Esterase Urine Small (1+) (Negative); Nitrite Urine Negative (Negative); UMIC TRIGGER UA YES; Urine Blood Negative (Negative); Urine Ketones Trace mg/dL (Negative); Urine Protein Trace mg/dL (Neg-Trace)
[2023-02-05 20:50] LABS: Benzodiazepines Screen Urine POSITIVE (Not Detect)
[2023-02-05 20:51] LABS: Amphetamine Screen Urine Not Detected (Not Detect); Barbiturates, Urine Not Detected (Not Detect); Cannabinoid Screen Urine POSITIVE (Not Detect); Cocaine Screen Urine Not Detected (Not Detect); Fentanyl, urine Not Detected (Not Detect); Opiate Screen Urine Not Detected (Not Detect); Phencyclidine Screen Urine Not Detected (Not Detect)
[2023-02-05 21:24] LABS: Bacteria Urine None Seen (None Seen); Hyaline Casts Urine 0-2 /LPF (0-2); RBC Urine 0-2 /HPF (0-2); Squamous Epithelial Cell Urine 0-2 /HPF (0-2); WBC Urine 0-5 /HPF (0-5)
[2023-02-05 22:07] LABS: Glucose, Whole Blood 152 mg/dL (60-115)
[2023-02-05] MEDS: QUEtiapine Fumarate 300 MG TABLET PO (22:37)
[2023-02-05] MEDS: clonazePAM 1 MG TABLET PO (22:38)
[2023-02-05] MEDS: carvediloL 6.25 MG TABLET PO (22:38)
[2023-02-05 22:41] VITALS: BP 140/87; PULSE 90; RESP 18; TEMP 37.4; O2SAT 95
[2023-02-05 23:38] VITALS: BP 154/87; PULSE 94; RESP 17; TEMP 37; O2SAT 98
--- NOTE | 2023-02-06 | ECG_ITS ---
Test Reason : check qt interval Blood Pressure : / mmHG Vent. Rate : 082 BPM Atrial Rate : 082 BPM P-R Int : 138 ms QRS Dur : 094 ms QT Int : 396 ms P-R-T Axes : 064 027 028 degrees QTc Int : 462 ms Sinus rhythm with marked sinus arrhythmia Minimal voltage criteria for LVH, may be normal variant ( Sokolow-Singh ) Borderline ECG When compared with ECG of 03-JUN-2022 01:01, No significant change was found Referred By: Kandi Dubose Electronically Signed By:YVONNE MCLAUGHLIN
[2023-02-06] MEDS: Omeprazole 40 MG CAPSULE.DR PO ×2 (05:51→18:35)
--- NOTE | 2023-02-06 06:42 | PC.NURSE ---
Patient slept intermittently, Setswana speaking primarily but understand Maori well, medication compliant, POC at 2200 was 152, disposition per care team is section 12 inpatient bed search, behavior non concerning, VSS, will continue to monitor.
--- NOTE | 2023-02-06 07:07 | PC.NURSE ---
patient appears to remain asleep at present respirations are even and unlabored patient patient appears in no distress.
[2023-02-06 08:26] VITALS: BP 148/87; PULSE 89; RESP 19; TEMP 36.5; O2SAT 97
[2023-02-06] MEDS: clonazePAM 1 MG TABLET PO ×3 (08:28→21:48)
[2023-02-06] MEDS: FLUoxetine HCl 20 MG CAPSULE 40 MG PO (08:28)
[2023-02-06] MEDS: metFORMIN HCl 500 MG TABLET PO ×2 (08:28→18:35)
[2023-02-06] MEDS: carvediloL 6.25 MG TABLET PO ×2 (08:29→21:48)
[2023-02-06] MEDS: amLODIPine Besylate 10 MG TABLET PO (08:29)
[2023-02-06] MEDS: Thiamine HCL 100 MG TABLET PO (08:29)
--- NOTE | 2023-02-06 13:26 | PC.NURSE ---
report given to geovanna ca on m3
[2023-02-06] MEDS: HaloperidoL 5 MG TABLET 10 MG PO (15:10)
[2023-02-06] MEDS: LORazepam 1 MG TABLET 2 MG PO (15:14)
[2023-02-06] MEDS: diphenhydrAMINE HCL 25 MG CAPSULE 50 MG PO (15:16)
--- NOTE | 2023-02-06 16:43 | PC.NURSE ---
Patient submitted 3 day note.
[2023-02-06] MEDS: chlorproMAZINE HCl 100 MG TABLET 200 MG PO (16:45)
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
--- NOTE | 2023-02-06 18:26 | PC.NURSE ---
The pt was brought to the unit and immediately raised his voice demanding to be allowed to leave and that he would not stay here. Pt quickly escalated, rapidly pacing up and down the unit at one point saying, if you won't let me go I'll take off all my clothes . Pt then took off clothing in the hallway. Pt redirected and placed clothing on. Pt continued threatening to harm and to wreck the place and was given medication restraint with little effect.Security present speaking with patient, MD present to speak with pt, sales representative aircraft was present. Pt offered po medications, refused initially, then took them when told that IM medications were ordered. Medication restraint was Ativan 2mg, Haldol 10mg, Benadryl 50mg po. Pt continued to yell up and down hallways, punching tomlinson and trying to open exit doors. Pt threatening to do harm and break things if not released. Pt agreed to take medications to help him calm down and was given Thorazine 200mg po.
[2023-02-06] MEDS: QUEtiapine Fumarate 300 MG TABLET PO (21:47)
[2023-02-06 21:52] VITALS: BP 148/78; PULSE 88; TEMP 36.6; O2SAT 94
[2023-02-07 07:00] VITALS: BMI 31.6
[2023-02-07] MEDS: Thiamine HCL 100 MG TABLET PO (09:12)
[2023-02-07] MEDS: Omeprazole 40 MG CAPSULE.DR PO ×2 (09:12→17:47)
[2023-02-07] MEDS: clonazePAM 1 MG TABLET PO ×3 (09:13→21:38)
[2023-02-07] MEDS: amLODIPine Besylate 10 MG TABLET PO (09:13)
[2023-02-07] MEDS: metFORMIN HCl 500 MG TABLET PO ×2 (09:13→17:47)
[2023-02-07] MEDS: FLUoxetine HCl 20 MG CAPSULE 40 MG PO (09:13)
[2023-02-07] MEDS: carvediloL 6.25 MG TABLET PO ×2 (09:13→21:38)
[2023-02-07 09:19] VITALS: BP 125/65; PULSE 82; RESP 18; TEMP 36.8; O2SAT 93
[2023-02-07 09:39] LABS: Estimated Average Glucose 111 mg/dL; Hemoglobin A1c % 5.5 %
[2023-02-07 09:59] LABS: Alanine Aminotransferase 25 U/L (0-40); Albumin Level 3.9 g/dL (3.5-5.0); Alkaline Phosphatase 79 U/L (39-117); Anion Gap 11 (12-20); Aspartate Amino Transferase 26 U/L (5-37); Bilirubin Direct 0.3 mg/dL (0.0-0.5); Bilirubin Total 1.2 mg/dL (0.0-1.0); Blood Urea Nitrogen 13 mg/dL (9-16); Carbon Dioxide 28 mmol/L (22-29); Chloride 105 mmol/L (96-108); Cholesterol 176 mg/dL; Creatinine Clr Calc Pharmacy 101.3; Estimated Glomerular Filt Rate > 60; Glucose Fasting 104 mg/dL (60-99); HDL Cholesterol 30 mg/dL; LDL Cholesterol Calculated 98 mg/dl; Potassium 3.2 mmol/L (3.3-5.1); Sodium 141 mmol/L (135-145); Total Protein 6.4 g/dL (6.5-8.0); Triglycerides 241 mg/dL
[2023-02-07 10:19] LABS: Folate 14.3 ng/mL (> or = 4.0); Thyroid Stimulating Hormone 2.85 uIU/mL (0.32-4.0); Vitamin B12 301 pg/mL (200-900)
[2023-02-07] MEDS: chlorproMAZINE HCl 100 MG TABLET 200 MG PO (12:10)
[2023-02-07] MEDS: Divalproex Sodium ER 500 MG TAB.ER.24H 1000 MG PO (12:11)
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
[2023-02-07 21:25] VITALS: BP 169/89; PULSE 129; RESP 18; TEMP 36.7; O2SAT 97
[2023-02-07] MEDS: QUEtiapine Fumarate 300 MG TABLET PO (21:38)
[2023-02-07] MEDS: Divalproex Sodium ER 500 MG TAB.ER.24H 1500 MG PO (21:38)
[2023-02-07] MEDS: hydrOXYzine HCL 25 MG TABLET PO (21:39)
[2023-02-08 06:00] VITALS: BP 136/80; PULSE 84; RESP 18; TEMP 36.6; O2SAT 98
[2023-02-08] MEDS: Omeprazole 40 MG CAPSULE.DR PO ×2 (07:25→16:30)
[2023-02-08] MEDS: Thiamine HCL 100 MG TABLET PO (09:01)
[2023-02-08] MEDS: FLUoxetine HCl 20 MG CAPSULE 40 MG PO (09:01)
[2023-02-08] MEDS: amLODIPine Besylate 10 MG TABLET PO (09:01)
[2023-02-08] MEDS: metFORMIN HCl 500 MG TABLET PO ×2 (09:01→16:30)
[2023-02-08] MEDS: carvediloL 6.25 MG TABLET PO ×2 (09:01→20:01)
[2023-02-08] MEDS: clonazePAM 1 MG TABLET PO ×3 (09:05→20:00)
[2023-02-08 09:12] LABS: Glucose, Whole Blood 135 mg/dL (60-115)
[2023-02-08 11:42] VITALS: BMI 31.6
--- NOTE | 2023-02-08 13:58 | HO.PSYCHPN ---
Subjective Subjective Date of Service: 02/08/23 Reason For Visit: SI Interim History: initially calm and cooperative, even apologizing for his behavior yesterday and accepting MD's informing him he needs to stay until saturday and take VPA. med ed provided, rationale for treatment. as interview progresses becomes more labile and irrational, yelling, demanding, threatening not to take VPA. per staff, 3-day up saturday. [place] on 1:1. med-compliant. 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 slept well overnight. Mental Status Exam Mental Status Exam Narrative: adequately dressed, disheveled. cooperative, generally speaking. initially calm, but progressively more agitated, strong gestures, yelling. speech initially WNL but progressively incr in rate, amount, loudness. nml tone. decr latency. thoughts more organized and topical. affect progressively hyper-intense, labile. denies SI (but does assert that if he WANTED to kill himself on the unit, he could easily do so). no HI/AVH expressed. Diagnostics Vital Signs (24Hr): Vital Signs - 24 hr 02/07/23 21:25 02/08/23 06:00 Temperature 98.0 F 97.9 F Pulse Rate 129 H 84 Respiratory Rate 18 18 Blood Pressure 169/89 H 136/80 Pulse Oximetry 97 98 Oxygen Delivery Method Room Air Room Air BMI result Body Mass Index 31.6 Labs 02/05/23 19:02 02/07/23 08:16 Labs: Laboratory Results - last 48 hr 02/07/23 02/07/23 02/08/23 08:16 08:16 09:08 Sodium 141 Potassium 3.2 L Chloride 105 Carbon Dioxide 28 Anion Gap 11 L BUN 13 Creatinine 0.78 Estim Creat Clear Calc 101.3 Estimated GFR > 60 POC Glucose 135 H Fasting Glucose 104 H Estimat Average Glucose 111 Hemoglobin A1c % 5.5 Calcium 9.0 Total Bilirubin 1.2 H Direct Bilirubin 0.3 AST 26 ALT 25 Alkaline Phosphatase 79 Total Protein 6.4 L Albumin 3.9 Triglycerides 241 Cholesterol 176 LDL Cholesterol, Calc 98 HDL Cholesterol 30 Vitamin B12 301 Folate 14.3 TSH 2.85 Free T4 0.80 Medications Medications Current Medications Acetaminophen (Acetaminophen 325 Mg Tablet) 650 mg PO Q6H PRN PRN Reason: Headache/Pain Mild Scale (1-3) Al Hydroxide/Mg Hydroxide (Magnesium Hydrox/Alum Hydrox 30 Ml Oral.Susp) 30 ml PO Q6H PRN PRN Reason: Heartburn/Nausea Amitriptyline HCl (Amitriptyline Hcl 50 Mg Tablet) 50 mg PO BEDTIME [facility] Stop: 02/09/23 21:01 Amitriptyline HCl (Amitriptyline Hcl 50 Mg Tablet) 100 mg PO BEDTIME [facility] Amlodipine Besylate (Amlodipine Besylate 10 Mg Tablet) 10 mg PO DAILY [facility]; Protocol Last Admin: 02/08/23 09:01 Dose: 10 mg Carvedilol (Carvedilol 6.25 Mg Tablet) 6.25 mg PO BID [facility]; Protocol Last Admin: 02/08/23 09:01 Dose: 6.25 mg Clonazepam (Clonazepam 1 Mg Tablet) 1 mg PO TID PRN PRN Reason: Anxiety Last Admin: 02/08/23 12:05 Dose: 1 mg Divalproex Sodium (Divalproex Sodium Er 500 Mg Tab.Er.24h) 2,000 mg PO BEDTIME [facility] Fluoxetine HCl (Fluoxetine Hcl 20 Mg Capsule) 40 mg PO DAILY [facility] Last Admin: 02/08/23 09:01 Dose: 40 mg Hydroxyzine HCl (Hydroxyzine Hcl 25 Mg Tablet) 25 mg PO Q6H PRN PRN Reason: Anxiety Last Admin: 02/07/23 21:39 Dose: 25 mg Magnesium Hydroxide (Milk Of Magnesia 30 Ml Oral.Susp) 30 ml PO DAILY PRN PRN Reason: Constipation Metformin HCl (Metformin Hcl 500 Mg Tablet) 500 mg PO BIDWM [facility] Last Admin: 02/08/23 09:01 Dose: 500 mg Nicotine Polacrilex (Nicotine Polacrilex 2 Mg Gum) 4 mg BUCCAL Q2H PRN PRN Reason: Nicotine Cravings Omeprazole (Omeprazole 40 Mg Capsule.Dr) 40 mg PO BID@0630,1630 [facility] Last Admin: 02/08/23 07:25 Dose: 40 mg Quetiapine Fumarate (Quetiapine Fumarate 300 Mg Tablet) 300 mg PO BEDTIME [facility] Last Admin: 02/07/23 21:38 Dose: 300 mg Thiamine HCl (Thiamine Hcl 100 Mg Tablet) 100 mg PO DAILY [facility] Last Admin: 02/08/23 09:01 Dose: 100 mg Trazodone HCl (Trazodone Hcl 50 Mg Tablet) 50 mg PO BEDTIME MRX1 PRN PRN Reason: Insomnia Allergies Allergies Allergy/AdvReac Type Severity Reaction Status Date / Time lisinopril Allergy Intermediate Swelling Verified 02/05/23 17:58 fish derived [FISH] Allergy Unknown UNKNOWN Verified 02/05/23 17:58 turkey [TURKEY] Allergy Unknown UNK Verified 02/07/23 16:06 Assessment & Plan Assessment & Plan (1) Slime: Status: Acute Code(s): F30.9 - Manic episode, unspecified (2) Suicidal ideation: Status: Acute Code(s): R45.851 - Suicidal ideations (3) Diabetes: Status: Acute Code(s): E11.9 - Type 2 diabetes mellitus without complications (4) Anemia: Status: Acute Code(s): D64.9 - Anemia, unspecified Plan 02/07: continue outpt meds. add VPA. thorazine PRN agitation. 02/08: increase VPA to 2000 mg QHS, otherwise continue current regimen. 3-day notice matures saturday. check labs saturday. Patient educated on: diagnosis and medication risk/benefits Reason for contiued inpatient stay Substantial Risk for: harm to self, harm to others, inability to function and rapid decompensation Time Spent With Patient Time: Total time managing care of this patient today __35__ minutes.
[2023-02-08 19:58] VITALS: BP 139/83; PULSE 105; TEMP 36.4; O2SAT 97
[2023-02-08] MEDS: QUEtiapine Fumarate 300 MG TABLET PO (20:00)
[2023-02-08] MEDS: Divalproex Sodium ER 500 MG TAB.ER.24H 2000 MG PO (20:01)
[2023-02-08] MEDS: Amitriptyline HCl 50 MG TABLET PO (20:01)
[2023-02-09 08:30] VITALS: BP 143/91; PULSE 95; TEMP 36.4; O2SAT 98
[2023-02-09] MEDS: amLODIPine Besylate 10 MG TABLET PO (08:44)
[2023-02-09] MEDS: clonazePAM 1 MG TABLET PO ×3 (08:47→22:56)
[2023-02-09] MEDS: Omeprazole 40 MG CAPSULE.DR PO ×2 (08:48→16:30)
[2023-02-09] MEDS: FLUoxetine HCl 20 MG CAPSULE 40 MG PO (08:48)
[2023-02-09] MEDS: carvediloL 6.25 MG TABLET PO ×2 (08:49→22:53)
[2023-02-09] MEDS: metFORMIN HCl 500 MG TABLET PO ×2 (08:49→16:30)
[2023-02-09] MEDS: Thiamine HCL 100 MG TABLET PO (08:51)
[2023-02-09 08:58] LABS: Glucose, Whole Blood 110 mg/dL (60-115)
--- NOTE | 2023-02-09 10:40 | P.PNPSI_ITS ---
Subjective Subjective Date of Service: 02/09/23 Reason For Visit: SI Subjective Notes: Conditional Voluntary and 3 Day Interim History: Patient was seen and discussed in rounds today. Records and plans were reviewed. He has been medication compliant. He is more settled. Not attending groups. He has been less labile. He was started on amitriptyline to be inc reased tonight to 100 mg. Some irritability and pacing reported. No changes were made today. He does have a 3 day notice and, expiring on 02/11 Medication Compliance: Yes Side effects from medications: No Attending Groups: No Review of Systems Review of Systems Yes Unobtainable due to mental status Mental Status Exam Mental Status Exam Narrative: In today's visit he is not wanting to get up. He is alert, marginally pleasant. Normal speech. No eye contact. Affect is appropriate and irritable. No acute signs of psychosis. No dangerous behaviors. Cognitively could not be assessed. Judgment is also hard to assess Diagnostics Vital Signs (24Hr): Vital Signs - 24 hr 02/08/23 19:58 02/09/23 08:30 Temperature 97.6 F 97.6 F Pulse Rate 105 H 95 Blood Pressure 139/83 143/91 H Pulse Oximetry 97 98 Oxygen Delivery Method Room Air Room Air BMI result Body Mass Index 31.6 Labs 02/05/23 19:02 02/07/23 08:16 Labs: Laboratory Results - last 48 hr 02/08/23 02/09/23 09:08 08:55 POC Glucose 135 H 110 Medications Medications Current Medications Acetaminophen (Acetaminophen 325 Mg Tablet) 650 mg PO Q6H PRN PRN Reason: Headache/Pain Mild Scale (1-3) Al Hydroxide/Mg Hydroxide (Magnesium Hydrox/Alum Hydrox 30 Ml Oral.Susp) 30 ml PO Q6H PRN PRN Reason: Heartburn/Nausea Amitriptyline HCl (Amitriptyline Hcl 50 Mg Tablet) 50 mg PO BEDTIME [facility] Stop: 02/09/23 21:01 Last Admin: 02/08/23 20:01 Dose: 50 mg Amitriptyline HCl (Amitriptyline Hcl 50 Mg Tablet) 100 mg PO BEDTIME [facility] Amlodipine Besylate (Amlodipine Besylate 10 Mg Tablet) 10 mg PO DAILY [facility]; Protocol Last Admin: 02/09/23 08:44 Dose: 10 mg Carvedilol (Carvedilol 6.25 Mg Tablet) 6.25 mg PO BID [facility]; Protocol Last Admin: 02/09/23 08:49 Dose: 6.25 mg Clonazepam (Clonazepam 1 Mg Tablet) 1 mg PO TID PRN PRN Reason: Anxiety Last Admin: 02/09/23 08:47 Dose: 1 mg Divalproex Sodium (Divalproex Sodium Er 500 Mg Tab.Er.24h) 2,000 mg PO BEDTIME [facility] Last Admin: 02/08/23 20:01 Dose: 2,000 mg Fluoxetine HCl (Fluoxetine Hcl 20 Mg Capsule) 40 mg PO DAILY [facility] Last Admin: 02/09/23 08:48 Dose: 40 mg Hydroxyzine HCl (Hydroxyzine Hcl 25 Mg Tablet) 25 mg PO Q6H PRN PRN Reason: Anxiety Last Admin: 02/07/23 21:39 Dose: 25 mg Magnesium Hydroxide (Milk Of Magnesia 30 Ml Oral.Susp) 30 ml PO DAILY PRN PRN Reason: Constipation Metformin HCl (Metformin Hcl 500 Mg Tablet) 500 mg PO BIDWM [facility] Last Admin: 02/09/23 08:49 Dose: 500 mg Nicotine Polacrilex (Nicotine Polacrilex 2 Mg Gum) 4 mg BUCCAL Q2H PRN PRN Reason: Nicotine Cravings Omeprazole (Omeprazole 40 Mg Capsule.Dr) 40 mg PO BID@0630,1630 [facility] Last Admin: 02/09/23 08:48 Dose: 40 mg Quetiapine Fumarate (Quetiapine Fumarate 300 Mg Tablet) 300 mg PO BEDTIME [facility] Last Admin: 02/08/23 20:00 Dose: 300 mg Thiamine HCl (Thiamine Hcl 100 Mg Tablet) 100 mg PO DAILY [facility] Last Admin: 02/09/23 08:51 Dose: 100 mg Trazodone HCl (Trazodone Hcl 50 Mg Tablet) 50 mg PO BEDTIME MRX1 PRN PRN Reason: Insomnia Allergies Allergies Allergy/AdvReac Type Severity Reaction Status Date / Time lisinopril Allergy Intermediate Swelling Verified 02/05/23 17:58 fish derived [FISH] Allergy Unknown UNKNOWN Verified 02/05/23 17:58 turkey [TURKEY] Allergy Unknown UNK Verified 02/07/23 16:06 Assessment & Plan Assessment & Plan (1) Slime: Status: Acute Code(s): F30.9 - Manic episode, unspecified (2) Suicidal ideation: Status: Acute Code(s): R45.851 - Suicidal ideations (3) Diabetes: Status: Acute Code(s): E11.9 - Type 2 diabetes mellitus without complications (4) Anemia: Status: Acute Code(s): D64.9 - Anemia, unspecified Plan 02/07: continue outpt meds. add VPA. thorazine PRN agitation. 02/08: increase VPA to 2000 mg QHS, otherwise continue current regimen. 3-day notice matures saturday. check labs saturday. 02/09: Continue current regimen and plans Reason for contiued inpatient stay Substantial Risk for: med/psych decompensation Time Spent With Patient Time: Total time managing care of this patient today ____ minutes.
[2023-02-09 18:00] VITALS: BP 136/84; PULSE 95; RESP 18; TEMP 36.6; O2SAT 98
[2023-02-09] MEDS: Divalproex Sodium ER 500 MG TAB.ER.24H 2000 MG PO (22:52)
[2023-02-09] MEDS: QUEtiapine Fumarate 300 MG TABLET PO (22:53)
[2023-02-09] MEDS: Amitriptyline HCl 50 MG TABLET PO (22:53)
[2023-02-10 06:00] VITALS: BP 160/91; PULSE 95; TEMP 36.4; O2SAT 98
[2023-02-10] MEDS: Omeprazole 40 MG CAPSULE.DR PO ×2 (09:02→16:31)
[2023-02-10 09:03] LABS: Glucose, Whole Blood 127 mg/dL (60-115)
[2023-02-10] MEDS: amLODIPine Besylate 10 MG TABLET PO (09:03)
[2023-02-10] MEDS: Thiamine HCL 100 MG TABLET PO (09:04)
[2023-02-10] MEDS: metFORMIN HCl 500 MG TABLET PO ×2 (09:04→16:31)
[2023-02-10] MEDS: carvediloL 6.25 MG TABLET PO ×2 (09:04→22:57)
[2023-02-10] MEDS: clonazePAM 1 MG TABLET PO ×3 (09:04→23:18)
[2023-02-10] MEDS: FLUoxetine HCl 20 MG CAPSULE 40 MG PO (09:05)
--- NOTE | 2023-02-10 09:38 | P.PNPSI_ITS ---
Subjective Subjective Date of Service: 02/10/23 Reason For Visit: SI Subjective Notes: Conditional Voluntary and 3 Day Interim History: Patient was seen and discussed in rounds today. Records and plans were reviewed. He has been stable and is doing better. He is still guarded. No complaints of anxiety or depression. He states that he has been feeling ?okay?. He is medication compliant. No complaints or side effects. His 3 day notice expires tomorrow. He continues to be somewhat anxious and pacing at times to cope. Medication Compliance: Yes Side effects from medications: No Attending Groups: No Review of Systems Review of Systems Yes all other systems are reviewed and are negative Mental Status Exam Mental Status Exam Narrative: In today's visit he is not wanting to get up. He is alert, pleasant. Normal speech. No eye contact. Affect is appropriate and improved with no irritability. No acute signs of psychosis. No dangerous behaviors. Cognitively could not be assessed. Judgment is also hard to assess Diagnostics Vital Signs (24Hr): Vital Signs - 24 hr 02/09/23 18:00 02/10/23 06:00 Temperature 97.9 F 97.5 F Pulse Rate 95 95 Respiratory Rate 18 Blood Pressure 136/84 160/91 H Pulse Oximetry 98 98 Oxygen Delivery Method Room Air Room Air BMI result Body Mass Index 31.6 Labs 02/05/23 19:02 02/07/23 08:16 Labs: Laboratory Results - last 48 hr 02/08/23 02/09/23 02/10/23 09:08 08:55 08:59 POC Glucose 135 H 110 127 H Medications Medications Current Medications Acetaminophen (Acetaminophen 325 Mg Tablet) 650 mg PO Q6H PRN PRN Reason: Headache/Pain Mild Scale (1-3) Al Hydroxide/Mg Hydroxide (Magnesium Hydrox/Alum Hydrox 30 Ml Oral.Susp) 30 ml PO Q6H PRN PRN Reason: Heartburn/Nausea Amitriptyline HCl (Amitriptyline Hcl 50 Mg Tablet) 100 mg PO BEDTIME [facility] Amlodipine Besylate (Amlodipine Besylate 10 Mg Tablet) 10 mg PO DAILY [facility]; Protocol Last Admin: 02/10/23 09:03 Dose: 10 mg Carvedilol (Carvedilol 6.25 Mg Tablet) 6.25 mg PO BID [facility]; Protocol Last Admin: 02/10/23 09:04 Dose: 6.25 mg Clonazepam (Clonazepam 1 Mg Tablet) 1 mg PO TID PRN PRN Reason: Anxiety Last Admin: 02/10/23 09:04 Dose: 1 mg Divalproex Sodium (Divalproex Sodium Er 500 Mg Tab.Er.24h) 2,000 mg PO BEDTIME [facility] Last Admin: 02/09/23 22:52 Dose: 2,000 mg Fluoxetine HCl (Fluoxetine Hcl 20 Mg Capsule) 40 mg PO DAILY [facility] Last Admin: 02/10/23 09:05 Dose: 40 mg Hydroxyzine HCl (Hydroxyzine Hcl 25 Mg Tablet) 25 mg PO Q6H PRN PRN Reason: Anxiety Last Admin: 02/07/23 21:39 Dose: 25 mg Magnesium Hydroxide (Milk Of Magnesia 30 Ml Oral.Susp) 30 ml PO DAILY PRN PRN Reason: Constipation Metformin HCl (Metformin Hcl 500 Mg Tablet) 500 mg PO BIDWM [facility] Last Admin: 02/10/23 09:04 Dose: 500 mg Nicotine Polacrilex (Nicotine Polacrilex 2 Mg Gum) 4 mg BUCCAL Q2H PRN PRN Reason: Nicotine Cravings Omeprazole (Omeprazole 40 Mg Capsule.Dr) 40 mg PO BID@0630,1630 [facility] Last Admin: 02/10/23 09:02 Dose: 40 mg Quetiapine Fumarate (Quetiapine Fumarate 300 Mg Tablet) 300 mg PO BEDTIME [facility] Last Admin: 02/09/23 22:53 Dose: 300 mg Thiamine HCl (Thiamine Hcl 100 Mg Tablet) 100 mg PO DAILY [facility] Last Admin: 02/10/23 09:04 Dose: 100 mg Trazodone HCl (Trazodone Hcl 50 Mg Tablet) 50 mg PO BEDTIME MRX1 PRN PRN Reason: Insomnia Allergies Allergies Allergy/AdvReac Type Severity Reaction Status Date / Time lisinopril Allergy Intermediate Swelling Verified 02/05/23 17:58 fish derived [FISH] Allergy Unknown UNKNOWN Verified 02/05/23 17:58 turkey [TURKEY] Allergy Unknown UNK Verified 02/07/23 16:06 Assessment & Plan Assessment & Plan (1) Slime: Status: Acute Code(s): F30.9 - Manic episode, unspecified (2) Suicidal ideation: Status: Acute Code(s): R45.851 - Suicidal ideations (3) Diabetes: Status: Acute Code(s): E11.9 - Type 2 diabetes mellitus without complications (4) Anemia: Status: Acute Code(s): D64.9 - Anemia, unspecified Plan 02/07: continue outpt meds. add VPA. thorazine PRN agitation. 02/08: increase VPA to 2000 mg QHS, otherwise continue current regimen. 3-day notice matures saturday. check labs saturday. 02/09: Continue current regimen and plans 02/10: Continue current plans and regimen Reason for contiued inpatient stay Substantial Risk for: med/psych decompensation Time Spent With Patient Time: Total time managing care of this patient today ____ minutes.
[2023-02-10] MEDS: Divalproex Sodium ER 500 MG TAB.ER.24H 2000 MG PO (22:56)
[2023-02-10] MEDS: QUEtiapine Fumarate 300 MG TABLET PO (22:56)
[2023-02-10] MEDS: Amitriptyline HCl 50 MG TABLET 100 MG PO (22:56)
[2023-02-10 23:03] VITALS: BP 155/91; PULSE 105; RESP 16; TEMP 36.6; O2SAT 95
[2023-02-11 08:29] LABS: Glucose, Whole Blood 177 mg/dL (60-115)
[2023-02-11 08:31] LABS: MANUAL DIFF FLAG NO
[2023-02-11 08:34] LABS: Basophils Percent Auto 0.3 % (0-2); Eosinophils Absolute Auto 0.2 X10*3/uL (0.0-0.4); Eosinophils Percent Auto 1.7 % (0-4); Hematocrit 41.4 % (42.0-52.0); Hemoglobin 13.8 g/dl (14.0-18.0); Imm Gran Abs Auto 0.25 X10*3/uL (0.00-0.03); Imm Gran Pct Auto 2.8 % (0.0-0.4); Lymphocytes Percent Auto 44.4 % (20-40); Mean Corpuscular HGB Conc 33.3 g/dl (31.0-36.0); Mean Corpuscular Hemoglobin 32.6 pg (27.0-33.0); Mean Corpuscular Volume 97.9 fL (80.0-98.0); Mean Platelet Volume 9.7 fL (9.4-12.4); Monocytes Absolute Auto 0.8 X10*3/uL (0.1-1.2); Monocytes Percent Auto 8.7 % (2-11); Neutrophils Absolute Auto 3.8 x10*3/uL (2.0-8.3); Neutrophils Percent Auto 42.1 % (45-73); Platelet Count 250 X10*3/uL (160-400); Red Blood Count 4.23 X10*6/uL (4.60-5.80); Red Cell Distribution Width 12.1 % (11.0-16.0)
[2023-02-11 08:45] LABS: Valproate 96.6 mcg/mL (50.0-100.0)
[2023-02-11 08:49] LABS: Alanine Aminotransferase 22 U/L (0-40); Albumin Level 4.2 g/dL (3.5-5.0); Alkaline Phosphatase 89 U/L (39-117); Anion Gap 13 (12-20); Aspartate Amino Transferase 18 U/L (5-37); Bilirubin Direct 0.2 mg/dL (0.0-0.5); Bilirubin Total 0.9 mg/dL (0.0-1.0); Blood Urea Nitrogen 13 mg/dL (9-16); Calcium 9.5 mg/dL (8.4-10.2); Carbon Dioxide 30 mmol/L (22-29); Chloride 101 mmol/L (96-108); Creatinine Clr Calc Pharmacy 93.9; Estimated Glomerular Filt Rate > 60; Glucose Random 182 mg/dL (60-115); Potassium 4.1 mmol/L (3.3-5.1); Sodium 140 mmol/L (135-145)
[2023-02-11] MEDS: carvediloL 6.25 MG TABLET PO (09:03)
[2023-02-11] MEDS: amLODIPine Besylate 10 MG TABLET PO (09:03)
[2023-02-11] MEDS: FLUoxetine HCl 20 MG CAPSULE 40 MG PO (09:03)
[2023-02-11] MEDS: Thiamine HCL 100 MG TABLET PO (09:03)
[2023-02-11] MEDS: Omeprazole 40 MG CAPSULE.DR PO (09:03)
[2023-02-11] MEDS: metFORMIN HCl 500 MG TABLET PO (09:03)
[2023-02-11] MEDS: clonazePAM 1 MG TABLET PO (09:07)
[2023-02-11 09:43] VITALS: BP 126/85; PULSE 96; RESP 18; TEMP 36.2; O2SAT 98
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
== END 2023-02-11 11:55 | disposition home or self-care (01) | DRG 753 ==
LOC: HO.ED 18:13 → HO.PADLT16 02-06 14:05
PROVIDERS: Admitting Provider Psychiatry & Neurology Psychiatry; Emergency Provider Emergency Medicine; Visit Provider Psychiatry & Neurology Psychiatry
DX: F31.9 Bipolar disorder, unspecified (principal); R45.851 Suicidal ideations; E11.9 Type 2 diabetes mellitus without complications; D64.9 Anemia, unspecified; Z20.822 Contact with and (suspected) exposure to COVID-19; Z79.84 Long term (current) use of oral hypoglycemic drugs; Z79.899 Other long term (current) drug therapy
CPT/HCPCS: 36415; 80048; 80053; 80061; 80076; 80164; 80307; 81001; 82077; 82607; 82746; 82947; 83036; 84439; 84443; 85025; 87635; 93005; 99285; S9485

== ENCOUNTER 2023-04-08 13:54 | Emergency (ER) | payer MEDICAID, SELFPAY ==
--- NOTE | ~2023-04-08 | CT_ITS ---
EXAMINATION: NONCONTRAST HEAD CT NONCONTRAST CERVICAL SPINE CT INDICATION INFORMATION: Unwitnessed fall. Intoxication. COMPARISON: 03/15/2021 TECHNIQUE: Separate noncontrast CT examinations of the head and cervical spine were performed. Coronal and sagittal images were created for each examination at the technologist workstation. This CT examination was performed using dose optimization techniques as appropriate, variously including the following: *Automated exposure control *Adjustment of mA and/or kV according to patient size (this includes techniques or standardized protocols for targeted exams where dose is matched to indication/reason for exam; i.e. extremities or head) *Use of iterative reconstruction technique DLP: 1285 mGy-cm FINDINGS: Head: There is no evidence of acute intracranial hemorrhage or territorial infarction. No abnormal mass effect or midline shift is seen. Hyde to white matter differentiation is well preserved. No extra-axial fluid collections are identified. No hydrocephalus. No significant volume loss. There is no abnormal attenuation within the brain parenchyma. No acute osseous or soft tissue abnormality. Polypoid mucosal thickening within the bilateral maxillary sinuses. Remaining paranasal sinuses are clear. Mastoid air cells are clear. Cervical spine: There is anatomic alignment of the vertebral bodies and posterior elements. The atlantoaxial and atlantooccipital articulations are intact. Vertebral body heights and intervertebral disc spaces are maintained. No evidence of acute fracture. No prevertebral soft tissue swelling. Visualized portions of the lung apices are unremarkable. The thyroid gland is unremarkable. CT/CT head/brain wo IV con IMPRESSION: No acute intracranial bleed or territorial infarction. No acute fractures of the calvarium or cervical spine.
--- NOTE | ~2023-04-08 | CT_ITS ---
EXAMINATION: NONCONTRAST HEAD CT NONCONTRAST CERVICAL SPINE CT INDICATION INFORMATION: Unwitnessed fall. Intoxication. COMPARISON: 03/15/2021 TECHNIQUE: Separate noncontrast CT examinations of the head and cervical spine were performed. Coronal and sagittal images were created for each examination at the technologist workstation. This CT examination was performed using dose optimization techniques as appropriate, variously including the following: *Automated exposure control *Adjustment of mA and/or kV according to patient size (this includes techniques or standardized protocols for targeted exams where dose is matched to indication/reason for exam; i.e. extremities or head) *Use of iterative reconstruction technique DLP: 1285 mGy-cm FINDINGS: Head: There is no evidence of acute intracranial hemorrhage or territorial infarction. No abnormal mass effect or midline shift is seen. Hyde to white matter differentiation is well preserved. No extra-axial fluid collections are identified. No hydrocephalus. No significant volume loss. There is no abnormal attenuation within the brain parenchyma. No acute osseous or soft tissue abnormality. Polypoid mucosal thickening within the bilateral maxillary sinuses. Remaining paranasal sinuses are clear. Mastoid air cells are clear. Cervical spine: There is anatomic alignment of the vertebral bodies and posterior elements. The atlantoaxial and atlantooccipital articulations are intact. Vertebral body heights and intervertebral disc spaces are maintained. No evidence of acute fracture. No prevertebral soft tissue swelling. Visualized portions of the lung apices are unremarkable. The thyroid gland is unremarkable. CT/CT cervical spine wo IV con IMPRESSION: No acute intracranial bleed or territorial infarction. No acute fractures of the calvarium or cervical spine.
--- NOTE | ~2023-04-08 | CT_ITS ---
EXAMINATION: CT CHEST, ABDOMEN AND PELVIS WITH CONTRAST. CLINICAL INFORMATION: trauma, LUQ tenderness. COMPARISON: No pertinent prior studies are available for comparison. TECHNIQUE: Multidetector volumetric imaging was performed from the thoracic inlet through the pubic symphysis following administration of 85 mL Omnipaque 300 intravenous contrast. Sagittal and coronal reformatted images were obtained on the technologist's workstation. This CT examination was performed using dose optimization techniques as appropriate, variously including the following: *Automated exposure control *Adjustment of mA and/or kV according to patient size (this includes techniques or standardized protocols for targeted exams where dose is matched to indication/reason for exam; i.e. extremities or head) *Use of iterative reconstruction technique DLP: 1112 mGy-cm FINDINGS: CHEST: Lung: Linear airspace changes in the dependent lungs likely reflect component of atelectasis. No pneumothorax. Central airways unremarkable Mediastinum: Small hiatal hernia. Mild vascular calcification in aorta. Central vessels are otherwise unremarkable.. The central vascular structures are unremarkable. No hilar or mediastinal lymphadenopathy. Pericardium/Pleura: No significant effusion. No pleural mass or thickening. Chest Wall/Axilla: Unremarkable. ABDOMEN/PELVIS: Peritoneal Space:No significant free air or free fluid identified. Liver, Gallbladder, Biliary Tree: The liver is normal in size, shape, and attenuation. No focal hepatic lesion or biliary ductal dilatation is present. The gallbladder is unremarkable with no evidence of radiopaque gallstones, gallbladder wall thickening, or obvious pericholecystic inflammatory changes. Pancreas: Unremarkable. Spleen: Unremarkable. Adrenal Glands: Unremarkable. Kidneys and Ureters: The kidneys are normal in size, shape, and attenuation. Small low-attenuation bilateral renal cysts incidentally noted. No hydronephrosis, hydroureter, or calculi seen. No perinephric stranding. Bladder: Unremarkable. Gastrointestinal Tract: Distal colon is decompressed. I do not appreciate any pericolonic inflammatory changes. Normal-appearing appendix in the right lower quadrant. Visualized small bowel unremarkable. Small hiatal hernia suggested Abdominal Wall: Tiny fat-containing umbilical hernia Lymphovascular Structures: Vascular calcification within the aorta iliac system. No bulky adenopathy. Pelvic Viscera: Unremarkable. Osseus Structures: There are bilateral rib fractures seen. Majority of these appear to be chronic with callus formation. This includes anterior left third, fourth, fifth, sixth, seventh ribs and lateral eighth, ninth, and 10th ribs and on the right in the anterior third, fourth, fifth, sixth ribs multilevel degenerative changes in the spine. Some of these chronic fractures were seen as well on the prior 06/03/2022 study although others, especially in the anterior left ribs may be more acute. Would clinically correlate for point tenderness in this region. CT/CT abdomen pelvis w IV con IMPRESSION: I do not appreciate any acute visceral organ injury. There are multiple bilateral rib fractures seen. Some of these appear to be chronic although others may be more acute. Would clinically correlate for point tenderness in this region.
[2023-04-08 14:02] VITALS: BP 100/60; BP 107/72; PULSE 90; PULSE 95; RESP 17; TEMP 36.7; O2SAT 94; BMI 30.6
--- NOTE | 2023-04-08 14:43 | ED_ITS ---
HPI - Altered Mental Status General Chief Complaint: Fall <TU Napoles - Last Filed: 04/08/23 16:28> Stated Complaint: ETOH fall w/head strike <TU Napoles - Last Filed: 04/08/23 16:28> Time Seen by Provider: 04/08/23 14:42 <TU Napoles Last Filed: 04/08/23 16:28> Source: patient, EMS and old records reviewed <TU Napoles Last Filed: 04/08/23 16:28> Mode of arrival: EMS <TU Napoles Last Filed: 04/08/23 16:28> Limitations: altered mental status <TU Napoles Last Filed: 04/08/23 16:28> History of Present Illness HPI narrative: 62-year-old male with history of schizoaffective disorder, bipolar type, anemia, diabetes with history of HHS, substance abuse who presents to the ER for evaluation after he was found on someone's front yard altered. He appeared to be under the influence of alcohol and was intermittently responsive. He was reportedly given Narcan with some improvement in his mental status. He was found to have dried blood in his mouth and on his head. He was placed in a cervical collar and brought to the ER for further evaluation. Patient unable to provide history on arrival. <TU Napoles - Last Filed: 04/08/23 16:28> MD complaint: altered mental status and intoxication <TU Napoles Last Filed: 04/08/23 16:28> Onset (ago): unknown <TU Napoles Last Filed: 04/08/23 16:28> Severity: severe <TU Napoles Last Filed: 04/08/23 16:28> Consistency of symptoms: waxing and waning <TU Napoles Last Filed: 04/08/23 16:28> Context: alcohol abuse, drug abuse and trauma <TU Napoles Last Filed: 04/08/23 16:28> Treatments prior to arrival: other (narcan) <TU Napoles Last Filed: 04/08/23 16:28> Related Data Home Medications: Home Medications Medication Instructions Recorded Confirmed amlodipine 10 mg tablet 10 mg PO DAILY 03/15/21 02/05/23 carvedilol 6.25 mg tablet 6.25 mg PO BID 03/15/21 02/05/23 fluoxetine 20 mg capsule 2 cap PO DAILY 02/05/23 02/05/23 quetiapine 300 mg tablet (Seroquel) 1 tab PO BEDTIME 02/05/23 02/05/23 Previous Rx's Medication Instructions Recorded blood sugar diagnostic (FreeStyle #10 ea 03/23/21 Lite Strips) blood-glucose meter (FreeStyle #1 ea 03/23/21 Lite Meter kit) lancets 28 gauge (FreeStyle #100 ea 03/23/21 Lancets) metformin 500 mg tablet 500 mg PO BID 30 days #60 tabs 03/23/21 thiamine HCl (vitamin B1) 100 mg 100 mg PO DAILY 30 days #30 tabs 03/23/21 tablet amitriptyline 50 mg tablet 100 mg PO BEDTIME #0 tabs 02/11/23 clonazepam 1 mg tablet 1 tab PO TID PRN Anxiety 30 days 02/11/23 #90 tabs divalproex 500 mg tablet,extended 2,000 mg PO BEDTIME 30 days #120 02/11/23 release 24 hr tabs omeprazole 40 mg capsule,delayed 40 mg PO BID 30 days #60 caps 02/11/23 release oxycodone 5 mg tablet 5 mg PO TID PRN pain 3 days #9 tabs 04/09/23 <TU Napoles - Last Filed: 04/08/23 16:28> Allergies/Adverse Reactions: Allergies Allergy/AdvReac Type Severity Reaction Status Date / Time lisinopril Allergy Intermediate Swelling Verified 02/05/23 17:58 fish derived [FISH] Allergy Unknown UNKNOWN Verified 02/05/23 17:58 turkey [TURKEY] Allergy Unknown UNK Verified 02/07/23 16:06 <TU Napoles - Last Filed: 04/08/23 16:28> Review of Systems Review of Systems: Yes Unobtainable due to mental status <TU Quintero - Last Filed: 04/08/23 16:28> REPLACED BY [facility] Past Medical History Medical History: Medical History Diabetes Hyperkalemia Hypertension Schizo affective schizophrenia Substance abuse <TU Napoles - Last Filed: 04/08/23 16:28> Social History Social History: Social History Household Members: None Housing: Apartment Do you presently have visiting nurse or other home services: No Unable to assess alcohol history related to: Refusing to respond Alcohol intake: current Alcohol intake frequency: does not drink Patient Tobacco Use Status: Refuse Tobacco use screen Substance Use Type: Heroin Advance Directives: No service: No Current occupational status: unemployed Sexual orientation: Straight/Heterosexual <TU Napoles - Last Filed: 04/08/23 16:28> Physical Exam ED Vital Signs: Vital Signs - 24 hr 04/08/23 14:02 04/08/23 19:25 04/08/23 21:34 Temperature 98.1 F Pulse Rate 95 90 88 Respiratory Rate 17 16 18 Blood Pressure 107/72 126/81 142/77 H Pulse Oximetry 94 94 94 Oxygen Delivery Method Room Air Room Air Room Air 04/09/23 00:13 Temperature 98.7 F Pulse Rate 96 Respiratory Rate 17 Blood Pressure 135/83 Pulse Oximetry 95 Oxygen Delivery Method Room Air BMI result Body Mass Index 30.6 <TU Napoles - Last Filed: 04/08/23 16:28> Vital Signs - 24 hr 04/08/23 14:02 04/08/23 19:25 04/08/23 21:34 Temperature 98.1 F Pulse Rate 95 90 88 Respiratory Rate 17 16 18 Blood Pressure 107/72 126/81 142/77 H Pulse Oximetry 94 94 94 Oxygen Delivery Method Room Air Room Air Room Air 04/09/23 00:13 Temperature 98.7 F Pulse Rate 96 Respiratory Rate 17 Blood Pressure 135/83 Pulse Oximetry 95 Oxygen Delivery Method Room Air BMI result Body Mass Index 30.6 <TU Casillas - Last Filed: 04/16/23 17:27> Appearance: Minimally arousable male in his 60s in a cervical collar, dried blood on his mouth and face protecting his airway Head: normocephalic, dry blood on the left side of his face with superficial abrasions to his chin and left temporal area. Eyes: Pupils equal, round and reactive to light. ENT: Dried blood in and around the mouth and teeth, no obvious dental trauma. Pharynx with dry mucus membranes. Neck: in cervical collar, no palpable midline tenderness. CVS: Normal heart rate and rhythm. Pulses normal. Respiratory: No respiratory distress. Breath sounds normal. Protecting his airway. Left lower anterior ribs with tenderness, superficial abrasion on the chest wall in abdomen. Abdomen: Soft With tenderness to the left upper quadrant epigastric area. Normal active +BS x4 Skin: Skin warm and dry. Normal skin color. Normal skin turgor. No rashes. Extremities: No lower extremity edema. No joint swelling. Neuro/psych: arouses to sternal rub, answers brief question and follows simple commands but quickly falls back asleep. Unable to maintain wakefulness <TU Napoles - Last Filed: 04/08/23 16:28> Course Reevaluation(s) Reevaluation #1: patient had minimal response to IV Narcan. Will continue monitor cl osely. He continues to maintain his airway on room air, respirations 14 breaths per minute. <TU Napoles - Last Filed: 04/08/23 16:28> Time: 15:46 <TU Napolse - Last Filed: 04/08/23 16:28> Reevaluation #2: Patient presently alert oriented x3. 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 Patient given pain medication for chronic and acute rib fracture there are bilateral. CT scan images are normal except chest CT which shows bilateral rib fractures with most of them being chronic and few being acute on her left side. Head CT cervical spine abdominal CT scan normal. Patient given morphine oxycodone. Patient's electrolytes improved. Patient discharged with incentive spirometry <TU Casillas - Last Filed: 04/16/23 17:27> Time: 02:28 <TU Casillas Last Filed: 04/16/23 17:27> Medications Administered Discontinued Medications Generic Name Dose Route Start Last Admin Trade Name Freq PRN Reason Stop Dose Admin Potassium Chloride 10 meq in 100 mls @ 100 mls/hr 04/08/23 15:45 04/08/23 20:35 Potassium Chloride/H20 IV 04/08/23 19:44 Not Given Q1H YUN Lactated Ringer's 1,000 mls @ 999 mls/hr 04/08/23 15:45 04/08/23 18:00 Lr IV 04/08/23 16:45 Infused .Q1H1M YUN Infusion Sodium Chloride 1,000 mls @ 999 mls/hr 04/08/23 20:38 04/08/23 22:04 Ns IV 04/08/23 21:38 Infused .Q1H1M STA Infusion Iohexol 100 ml 04/08/23 15:55 04/08/23 15:56 Iohexol 350 Mg/Ml 100 Ml Infus..Btl IV 04/08/23 15:56 85 ml ONCE ONE Administration Morphine Sulfate 2 mg 04/08/23 20:42 04/08/23 20:49 Morphine Sulfate 2 Mg/Ml Cartridge IVPUSH 04/08/23 20:43 2 mg ONCE ONE Administration Protocol Morphine Sulfate 4 mg 04/08/23 23:29 04/09/23 00:15 Morphine Sulfate 4 Mg/Ml Cartridge IVPUSH 04/08/23 23:30 4 mg ONCE ONE Administration Protocol Naloxone HCl 0.4 mg 04/08/23 14:56 04/08/23 15:17 Naloxone Hcl 0.4 Mg/Ml Vial IVPUSH 04/08/23 14:57 0.4 mg ONCE ONE Administration Oxycodone HCl 5 mg 04/09/23 00:50 04/09/23 02:41 Oxycodone Hcl Immed Release 5 Mg Tablet PO 04/09/23 00:51 5 mg ONCE ONE Administration Potassium Chloride 40 meq 04/08/23 20:33 04/08/23 20:49 Potassium Chloride Packet 20 Meq Packet PO 04/08/23 20:34 40 meq ONCE ONE Administration <TU Napoles - Last Filed: 04/08/23 16:28> Medications Administered Discontinued Medications Generic Name Dose Route Start Last Admin Trade Name Freq PRN Reason Stop Dose Admin Potassium Chloride 10 meq in 100 mls @ 100 mls/hr 04/08/23 15:45 04/08/23 20:35 Potassium Chloride/H20 IV 04/08/23 19:44 Not Given Q1H YUN Lactated Ringer's 1,000 mls @ 999 mls/hr 04/08/23 15:45 04/08/23 18:00 Lr IV 04/08/23 16:45 Infused .Q1H1M YUN Infusion Sodium Chloride 1,000 mls @ 999 mls/hr 04/08/23 20:38 04/08/23 22:04 Ns IV 04/08/23 21:38 Infused .Q1H1M STA Infusion Iohexol 100 ml 04/08/23 15:55 04/08/23 15:56 Iohexol 350 Mg/Ml 100 Ml Infus..Btl IV 04/08/23 15:56 85 ml ONCE ONE Administration Morphine Sulfate 2 mg 04/08/23 20:42 04/08/23 20:49 Morphine Sulfate 2 Mg/Ml Cartridge IVPUSH 04/08/23 20:43 2 mg ONCE ONE Administration Protocol Morphine Sulfate 4 mg 04/08/23 23:29 04/09/23 00:15 Morphine Sulfate 4 Mg/Ml Cartridge IVPUSH 04/08/23 23:30 4 mg ONCE ONE Administration Protocol Naloxone HCl 0.4 mg 04/08/23 14:56 04/08/23 15:17 Naloxone Hcl 0.4 Mg/Ml Vial IVPUSH 04/08/23 14:57 0.4 mg ONCE ONE Administration Oxycodone HCl 5 mg 04/09/23 00:50 04/09/23 02:41 Oxycodone Hcl Immed Release 5 Mg Tablet PO 04/09/23 00:51 5 mg ONCE ONE Administration Potassium Chloride 40 meq 04/08/23 20:33 04/08/23 20:49 Potassium Chloride Packet 20 Meq Packet PO 04/08/23 20:34 40 meq ONCE ONE Administration <TU Casillas - Last Filed: 04/16/23 17:27> Medical Decision Making Medical Decision Making MDM Narrative: 52-year-old male with a history of schizoaffective disorder, diabetes, history of HHS, history of polysubstance abuse, history of recurrent falls, anemia who presents to the ER after being found semi responsive in someone's front yd with dried blood on his face and head. He was smelling of alcohol and appeared to be under the influence. He had reported improvement in his mental status with Narcan. He arrives to the ER responsive to sternal rub but with asymmetrical pupils. Patient was brought directly to CT scan. no obvious subdural hematoma, subarachnoid hemorrhage was appreciated. IV was established and IV Narcan was administered with minimal improvement in his mental status. Lab workup showing hypokalemia. ETOH level only 162. That does not explain his current mental status. Ammonia level and TSH were added on. VBG does not show any acidosis or P CO2 retention. Signed out to Kwabena Alcala who will follow-up trauma scans of his abdomen and pelvis, monitor his mental status and ultimately determine disposition. <TU Napoles - Last Filed: 04/08/23 16:28> Differential Diagnosis Differential Diagnoses: The differential diagnosis associated with the presentation includes <TU Napoles Last Filed: 04/08/23 16:28> ICH, SAH, polysubstance abuse, alcohol intoxication, hepatic encephalopathy <TU Napoles Last Filed: 04/08/23 16:28> Admission/Observation Consideration of admission/observation: Escalation of care including admission/observation considered <TU Barbosa Last Filed: 04/08/23 16:28> Lab Data MDM Lab Attestation statement: I reviewed the patient's lab results. <TU Napoles Last Filed: 04/08/23 16:28> significant hypokalemia <TU Napoles Last Filed: 04/08/23 16:28> Result Diagrams: 04/08/23 15:09 04/08/23 15:09 <TU Napoles - Last Filed: 04/08/23 16:28> Labs: Lab Results 04/08/23 04/08/23 04/08/23 Range/Units 14:50 15:09 15:09 WBC 7.0 (4.8-10.8) X10*3/uL RBC 3.98 L (4.60-5.80) X10*6/uL Hgb 13.1 L (14.0-18.0) g/dl Hct 37.6 L (42.0-52.0) % MCV 94.5 (80.0-98.0) fL MCH 32.9 (27.0-33.0) pg MCHC 34.8 (31.0-36.0) g/dl RDW 11.7 (11.0-16.0) % Plt Count 205 (160-400) X10*3/uL MPV 9.4 (9.4-12.4) fL Immature Gran % (Auto) 0.4 (0.0-0.4) % Neut % (Auto) 57.9 (45-73) % Lymph % (Auto) 29.6 (20-40) % Esmeralda % (Auto) 9.8 (2-11) % Eos % (Auto) 1.6 (0-4) % Baso % (Auto) 0.7 (0-2) % Lymph # (Auto) 2.1 (1.2-4.9) X10*3/uL Esmeralda # (Auto) 0.7 (0.1-1.2) X10*3/uL Eos # (Auto) 0.1 (0.0-0.4) X10*3/uL Baso # (Auto) 0.1 (0.0-0.2) X10*3/uL Abs Immat Gran (auto) 0.03 (0.00-0.03) X10*3/uL Absolute Neuts (auto) 4.1 (2.0-8.3) x10*3/uL Absolute Nucleated RBC 0.000 (0.0-0.012) X10*3/uL Nucleated RBC % (auto) 0.0 (0.0-0.2) /100WBC VBG pH (7.32-7.43) VBG pCO2 mmHg VBG pO2 mmHg VBG HCO3 (22-26) mmol/L VBG O2 Saturation % VBG Base Excess mmol/L Sodium 144 (135-145) mmol/L Potassium 2.6 L D (3.3-5.1) mmol/L Chloride 107 (96-108) mmol/L Carbon Dioxide 27 (22-29) mmol/L Anion Gap 13 (12-20) BUN 19 H (9-16) mg/dL Creatinine 1.01 (0.5-1.4) mg/dL Estim Creat Clear Calc 82.1 Estimated GFR > 60 POC Glucose 120 H (60-115) mg/dL Random Glucose 112 (60-115) mg/dL Calcium 9.0 (8.4-10.2) mg/dL Magnesium 2.4 (1.6-2.6) mg/dL Total Bilirubin 1.0 (0.0-1.0) mg/dL Direct Bilirubin 0.3 (0.0-0.5) mg/dL AST 72 H (5-37) U/L ALT 56 H (0-40) U/L Alkaline Phosphatase 82 (39-117) U/L Ammonia (13-55) umol/L Total Creatine Kinase 278 H (38-174) U/L Total Protein 6.4 L (6.5-8.0) g/dL Albumin 3.9 (3.5-5.0) g/dL TSH 1.34 (0.32-4.0) uIU/mL Urine Color Urine Appearance Urine pH (5.0-9.0) Ur Specific [place] (1.005-1.025) Urine Protein (Neg-Trace) mg/dL Urine Glucose (UA) (Negative) mg/dL Urine Ketones (Negative) mg/dL Urine Blood (Negative) Urine Nitrite (Negative) Ur Leukocyte Esterase (Negative) Salicylates (15-30) mg/dL Urine Opiates Screen (Not Detect) Urine Fentanyl Screen (Not Detect) Acetaminophen (<30) mcg/mL Ur Barbiturates Screen (Not Detect) Ur Phencyclidine Scrn (Not Detect) Ur Amphetamines Screen (Not Detect) U Benzodiazepines Scrn (Not Detect) Urine Cocaine Screen (Not Detect) U Marijuana (THC) Screen (Not Detect) Ethyl Alcohol 165 mg/dL 04/08/23 04/08/23 04/08/23 Range/Units 15:09 17:38 17:38 WBC (4.8-10.8) X10*3/uL RBC (4.60-5.80) X10*6/uL Hgb (14.0-18.0) g/dl Hct (42.0-52.0) % MCV (80.0-98.0) fL MCH (27.0-33.0) pg MCHC (31.0-36.0) g/dl RDW (11.0-16.0) % Plt Count (160-400) X10*3/uL MPV (9.4-12.4) fL Immature Gran % (Auto) (0.0-0.4) % Neut % (Auto) (45-73) % Lymph % (Auto) (20-40) % Esmeralda % (Auto) (2-11) % Eos % (Auto) (0-4) % Baso % (Auto) (0-2) % Lymph # (Auto) (1.2-4.9) X10*3/uL Esmeralda # (Auto) (0.1-1.2) X10*3/uL Eos # (Auto) (0.0-0.4) X10*3/uL Baso # (Auto) (0.0-0.2) X10*3/uL Abs Immat Gran (auto) (0.00-0.03) X10*3/uL Absolute Neuts (auto) (2.0-8.3) x10*3/uL Absolute Nucleated RBC (0.0-0.012) X10*3/uL Nucleated RBC % (auto) (0.0-0.2) /100WBC VBG pH 7.45 H (7.32-7.43) VBG pCO2 46 mmHg VBG pO2 87 mmHg VBG HCO3 32 H (22-26) mmol/L VBG O2 Saturation 97.0 % VBG Base Excess 7.4 mmol/L Sodium (135-145) mmol/L Potassium (3.3-5.1) mmol/L Chloride (96-108) mmol/L Carbon Dioxide (22-29) mmol/L Anion Gap (12-20) BUN (9-16) mg/dL Creatinine (0.5-1.4) mg/dL Estim Creat Clear Calc Estimated GFR POC Glucose (60-115) mg/dL Random Glucose (60-115) mg/dL Calcium (8.4-10.2) mg/dL Magnesium (1.6-2.6) mg/dL Total Bilirubin (0.0-1.0) mg/dL Direct Bilirubin (0.0-0.5) mg/dL AST (5-37) U/L ALT (0-40) U/L Alkaline Phosphatase (39-117) U/L Ammonia 39 (13-55) umol/L Total Creatine Kinase (38-174) U/L Total Protein (6.5-8.0) g/dL Albumin (3.5-5.0) g/dL TSH (0.32-4.0) uIU/mL Urine Color Urine Appearance Urine pH (5.0-9.0) Ur Specific [place] (1.005-1.025) Urine Protein (Neg-Trace) mg/dL Urine Glucose (UA) (Negative) mg/dL Urine Ketones (Negative) mg/dL Urine Blood (Negative) Urine Nitrite (Negative) Ur Leukocyte Esterase (Negative) Salicylates < 5.0 L (15-30) mg/dL Urine Opiates Screen (Not Detect) Urine Fentanyl Screen (Not Detect) Acetaminophen < 17 (<30) mcg/mL Ur Barbiturates Screen (Not Detect) Ur Phencyclidine Scrn (Not Detect) Ur Amphetamines Screen (Not Detect) U Benzodiazepines Scrn (Not Detect) Urine Cocaine Screen (Not Detect) U Marijuana (THC) Screen (Not Detect) Ethyl Alcohol mg/dL 04/08/23 04/08/23 04/08/23 Range/Units 20:52 20:52 22:35 WBC (4.8-10.8) X10*3/uL RBC (4.60-5.80) X10*6/uL Hgb (14.0-18.0) g/dl Hct (42.0-52.0) % MCV (80.0-98.0) fL MCH (27.0-33.0) pg MCHC (31.0-36.0) g/dl RDW (11.0-16.0) % Plt Count (160-400) X10*3/uL MPV (9.4-12.4) fL Immature Gran % (Auto) (0.0-0.4) % Neut % (Auto) (45-73) % Lymph % (Auto) (20-40) % Esmeralda % (Auto) (2-11) % Eos % (Auto) (0-4) % Baso % (Auto) (0-2) % Lymph # (Auto) (1.2-4.9) X10*3/uL Esmeralda # (Auto) (0.1-1.2) X10*3/uL Eos # (Auto) (0.0-0.4) X10*3/uL Baso # (Auto) (0.0-0.2) X10*3/uL Abs Immat Gran (auto) (0.00-0.03) X10*3/uL Absolute Neuts (auto) (2.0-8.3) x10*3/uL Absolute Nucleated RBC (0.0-0.012) X10*3/uL Nucleated RBC % (auto) (0.0-0.2) /100WBC VBG pH (7.32-7.43) VBG pCO2 mmHg VBG pO2 mmHg VBG HCO3 (22-26) mmol/L VBG O2 Saturation % VBG Base Excess mmol/L Sodium 143 (135-145) mmol/L Potassium 3.6 D (3.3-5.1) mmol/L Chloride 107 (96-108) mmol/L Carbon Dioxide 28 (22-29) mmol/L Anion Gap 12 (12-20) BUN 13 (9-16) mg/dL Creatinine 0.80 (0.5-1.4) mg/dL Estim Creat Clear Calc 103.6 Estimated GFR > 60 POC Glucose (60-115) mg/dL Random Glucose 118 H (60-115) mg/dL Calcium 8.7 (8.4-10.2) mg/dL Magnesium (1.6-2.6) mg/dL Total Bilirubin 1.0 (0.0-1.0) mg/dL Direct Bilirubin (0.0-0.5) mg/dL AST 60 H (5-37) U/L ALT 56 H (0-40) U/L Alkaline Phosphatase 81 (39-117) U/L Ammonia (13-55) umol/L Total Creatine Kinase (38-174) U/L Total Protein 6.7 (6.5-8.0) g/dL Albumin 4.0 (3.5-5.0) g/dL TSH (0.32-4.0) uIU/mL Urine Color Yellow Urine Appearance Clear Urine pH 7.0 (5.0-9.0) Ur Specific [place] >= 1.030 H (1.005-1.025) Urine Protein Negative (Neg-Trace) mg/dL Urine Glucose (UA) Negative (Negative) mg/dL Urine Ketones Negative (Negative) mg/dL Urine Blood Negative (Negative) Urine Nitrite Negative (Negative) Ur Leukocyte Esterase Negative (Negative) Salicylates (15-30) mg/dL Urine Opiates Screen Not Detected (Not Detect) Urine Fentanyl Screen Not Detected (Not Detect) Acetaminophen (<30) mcg/mL Ur Barbiturates Screen Not Detected (Not Detect) Ur Phencyclidine Scrn Not Detected (Not Detect) Ur Amphetamines Screen Not Detected (Not Detect) U Benzodiazepines Scrn Not Detected (Not Detect) Urine Cocaine Screen Not Detected (Not Detect) U Marijuana (THC) Screen POSITIVE H (Not Detect) Ethyl Alcohol mg/dL 04/09/23 Range/Units 00:39 WBC (4.8-10.8) X10*3/uL RBC (4.60-5.80) X10*6/uL Hgb (14.0-18.0) g/dl Hct (42.0-52.0) % MCV (80.0-98.0) fL MCH (27.0-33.0) pg MCHC (31.0-36.0) g/dl RDW (11.0-16.0) % Plt Count (160-400) X10*3/uL MPV (9.4-12.4) fL Immature Gran % (Auto) (0.0-0.4) % Neut % (Auto) (45-73) % Lymph % (Auto) (20-40) % Esmeralda % (Auto) (2-11) % Eos % (Auto) (0-4) % Baso % (Auto) (0-2) % Lymph # (Auto) (1.2-4.9) X10*3/uL Esmeralda # (Auto) (0.1-1.2) X10*3/uL Eos # (Auto) (0.0-0.4) X10*3/uL Baso # (Auto) (0.0-0.2) X10*3/uL Abs Immat Gran (auto) (0.00-0.03) X10*3/uL Absolute Neuts (auto) (2.0-8.3) x10*3/uL Absolute Nucleated RBC (0.0-0.012) X10*3/uL Nucleated RBC % (auto) (0.0-0.2) /100WBC VBG pH (7.32-7.43) VBG pCO2 mmHg VBG pO2 mmHg VBG HCO3 (22-26) mmol/L VBG O2 Saturation % VBG Base Excess mmol/L Sodium (135-145) mmol/L Potassium (3.3-5.1) mmol/L Chloride (96-108) mmol/L Carbon Dioxide (22-29) mmol/L Anion Gap (12-20) BUN (9-16) mg/dL Creatinine (0.5-1.4) mg/dL Estim Creat Clear Calc Estimated GFR POC Glucose 128 H (60-115) mg/dL Random Glucose (60-115) mg/dL Calcium (8.4-10.2) mg/dL Magnesium (1.6-2.6) mg/dL Total Bilirubin (0.0-1.0) mg/dL Direct Bilirubin (0.0-0.5) mg/dL AST (5-37) U/L ALT (0-40) U/L Alkaline Phosphatase (39-117) U/L Ammonia (13-55) umol/L Total Creatine Kinase (38-174) U/L Total Protein (6.5-8.0) g/dL Albumin (3.5-5.0) g/dL TSH (0.32-4.0) uIU/mL Urine Color Urine Appearance Urine pH (5.0-9.0) Ur Specific [place] (1.005-1.025) Urine Protein (Neg-Trace) mg/dL Urine Glucose (UA) (Negative) mg/dL Urine Ketones (Negative) mg/dL Urine Blood (Negative) Urine Nitrite (Negative) Ur Leukocyte Esterase (Negative) Salicylates (15-30) mg/dL Urine Opiates Screen (Not Detect) Urine Fentanyl Screen (Not Detect) Acetaminophen (<30) mcg/mL Ur Barbiturates Screen (Not Detect) Ur Phencyclidine Scrn (Not Detect) Ur Amphetamines Screen (Not Detect) U Benzodiazepines Scrn (Not Detect) Urine Cocaine Screen (Not Detect) U Marijuana (THC) Screen (Not Detect) Ethyl Alcohol mg/dL <TU Napoles - Last Filed: 04/08/23 16:28> Lab Results 04/08/23 04/08/23 04/08/23 Range/Units 14:50 15:09 15:09 WBC 7.0 (4.8-10.8) X10*3/uL RBC 3.98 L (4.60-5.80) X10*6/uL Hgb 13.1 L (14.0-18.0) g/dl Hct 37.6 L (42.0-52.0) % MCV 94.5 (80.0-98.0) fL MCH 32.9 (27.0-33.0) pg MCHC 34.8 (31.0-36.0) g/dl RDW 11.7 (11.0-16.0) % Plt Count 205 (160-400) X10*3/uL MPV 9.4 (9.4-12.4) fL Immature Gran % (Auto) 0.4 (0.0-0.4) % Neut % (Auto) 57.9 (45-73) % Lymph % (Auto) 29.6 (20-40) % Esmeralda % (Auto) 9.8 (2-11) % Eos % (Auto) 1.6 (0-4) % Baso % (Auto) 0.7 (0-2) % Lymph # (Auto) 2.1 (1.2-4.9) X10*3/uL Esmeralda # (Auto) 0.7 (0.1-1.2) X10*3/uL Eos # (Auto) 0.1 (0.0-0.4) X10*3/uL Baso # (Auto) 0.1 (0.0-0.2) X10*3/uL Abs Immat Gran (auto) 0.03 (0.00-0.03) X10*3/uL Absolute Neuts (auto) 4.1 (2.0-8.3) x10*3/uL Absolute Nucleated RBC 0.000 (0.0-0.012) X10*3/uL Nucleated RBC % (auto) 0.0 (0.0-0.2) /100WBC VBG pH (7.32-7.43) VBG pCO2 mmHg VBG pO2 mmHg VBG HCO3 (22-26) mmol/L VBG O2 Saturation % VBG Base Excess mmol/L Sodium 144 (135-145) mmol/L Potassium 2.6 L D (3.3-5.1) mmol/L Chloride 107 (96-108) mmol/L Carbon Dioxide 27 (22-29) mmol/L Anion Gap 13 (12-20) BUN 19 H (9-16) mg/dL Creatinine 1.01 (0.5-1.4) mg/dL Estim Creat Clear Calc 82.1 Estimated GFR > 60 POC Glucose 120 H (60-115) mg/dL Random Glucose 112 (60-115) mg/dL Calcium 9.0 (8.4-10.2) mg/dL Magnesium 2.4 (1.6-2.6) mg/dL Total Bilirubin 1.0 (0.0-1.0) mg/dL Direct Bilirubin 0.3 (0.0-0.5) mg/dL AST 72 H (5-37) U/L ALT 56 H (0-40) U/L Alkaline Phosphatase 82 (39-117) U/L Ammonia (13-55) umol/L Total Creatine Kinase 278 H (38-174) U/L Total Protein 6.4 L (6.5-8.0) g/dL Albumin 3.9 (3.5-5.0) g/dL TSH 1.34 (0.32-4.0) uIU/mL Urine Color Urine Appearance Urine pH (5.0-9.0) Ur Specific [place] (1.005-1.025) Urine Protein (Neg-Trace) mg/dL Urine Glucose (UA) (Negative) mg/dL Urine Ketones (Negative) mg/dL Urine Blood (Negative) Urine Nitrite (Negative) Ur Leukocyte Esterase (Negative) Salicylates (15-30) mg/dL Urine Opiates Screen (Not Detect) Urine Fentanyl Screen (Not Detect) Acetaminophen (<30) mcg/mL Ur Barbiturates Screen (Not Detect) Ur Phencyclidine Scrn (Not Detect) Ur Amphetamines Screen (Not Detect) U Benzodiazepines Scrn (Not Detect) Urine Cocaine Screen (Not Detect) U Marijuana (THC) Screen (Not Detect) Ethyl Alcohol 165 mg/dL 04/08/23 04/08/23 04/08/23 Range/Units 15:09 17:38 17:38 WBC (4.8-10.8) X10*3/uL RBC (4.60-5.80) X10*6/uL Hgb (14.0-18.0) g/dl Hct (42.0-52.0) % MCV (80.0-98.0) fL MCH (27.0-33.0) pg MCHC (31.0-36.0) g/dl RDW (11.0-16.0) % Plt Count (160-400) X10*3/uL MPV (9.4-12.4) fL Immature Gran % (Auto) (0.0-0.4) % Neut % (Auto) (45-73) % Lymph % (Auto) (20-40) % [place]mer[place]da % (Auto) (2-11) % Eos % (Auto) (0-4) % Baso % (Auto) (0-2) % Lymph # (Auto) (1.2-4.9) X10*3/uL Esmer[place]da # (Auto) (0.1-1.2) X10*3/uL Eos # (Auto) (0.0-0.4) X10*3/uL Baso # (Auto) (0.0-0.2) X10*3/uL Abs Immat Gran (auto) (0.00-0.03) X10*3/uL Absolute Neuts (auto) (2.0-8.3) x10*3/uL Absolute Nucleated RBC (0.0-0.012) X10*3/uL Nucleated RBC % (auto) (0.0-0.2) /100WBC VBG pH 7.45 H (7.32-7.43) VBG pCO2 46 mmHg VBG pO2 87 mmHg VBG HCO3 32 H (22-26) mmol/L VBG O2 Saturation 97.0 % VBG Base Excess 7.4 mmol/L Sodium (135-145) mmol/L Potassium (3.3-5.1) mmol/L Chloride (96-108) mmol/L Carbon Dioxide (22-29) mmol/L Anion Gap (12-20) BUN (9-16) mg/dL Creatinine (0.5-1.4) mg/dL Estim Creat Clear Calc Estimated GFR POC Glucose (60-115) mg/dL Random Glucose (60-115) mg/dL Calcium (8.4-10.2) mg/dL Magnesium (1.6-2.6) mg/dL Total Bilirubin (0.0-1.0) mg/dL Direct Bilirubin (0.0-0.5) mg/dL AST (5-37) U/L ALT (0-40) U/L Alkaline Phosphatase (39-117) U/L Ammonia 39 (13-55) umol/L Total Creatine Kinase (38-174) U/L Total Protein (6.5-8.0) g/dL Albumin (3.5-5.0) g/dL TSH (0.32-4.0) uIU/mL Urine Color Urine Appearance Urine pH (5.0-9.0) Ur Specific [place] (1.005-1.025) Urine Protein (Neg-Trace) mg/dL Urine Glucose (UA) (Negative) mg/dL Urine Ketones (Negative) mg/dL Urine Blood (Negative) Urine Nitrite (Negative) Ur Leukocyte Esterase (Negative) Salicylates < 5.0 L (15-30) mg/dL Urine Opiates Screen (Not Detect) Urine Fentanyl Screen (Not Detect) Acetaminophen < 17 (<30) mcg/mL Ur Barbiturates Screen (Not Detect) Ur Phencyclidine Scrn (Not Detect) Ur Amphetamines Screen (Not Detect) U Benzodiazepines Scrn (Not Detect) Urine Cocaine Screen (Not Detect) U Marijuana (THC) Screen (Not Detect) Ethyl Alcohol mg/dL 04/08/23 04/08/23 04/08/23 Range/Units 20:52 20:52 22:35 WBC (4.8-10.8) X10*3/uL RBC (4.60-5.80) X10*6/uL Hgb (14.0-18.0) g/dl Hct (42.0-52.0) % MCV (80.0-98.0) fL MCH (27.0-33.0) pg MCHC (31.0-36.0) g/dl RDW (11.0-16.0) % Plt Count (160-400) X10*3/uL MPV (9.4-12.4) fL Immature Gran % (Auto) (0.0-0.4) % Neut % (Auto) (45-73) % Lymph % (Auto) (20-40) % Esmeralda % (Auto) (2-11) % Eos % (Auto) (0-4) % Baso % (Auto) (0-2) % Lymph # (Auto) (1.2-4.9) X10*3/uL Esmeralda # (Auto) (0.1-1.2) X10*3/uL Eos # (Auto) (0.0-0.4) X10*3/uL Baso # (Auto) (0.0-0.2) X10*3/uL Abs Immat Gran (auto) (0.00-0.03) X10*3/uL Absolute Neuts (auto) (2.0-8.3) x10*3/uL Absolute Nucleated RBC (0.0-0.012) X10*3/uL Nucleated RBC % (auto) (0.0-0.2) /100WBC VBG pH (7.32-7.43) VBG pCO2 mmHg VBG pO2 mmHg VBG HCO3 (22-26) mmol/L VBG O2 Saturation % VBG Base Excess mmol/L Sodium 143 (135-145) mmol/L Potassium 3.6 D (3.3-5.1) mmol/L Chloride 107 (96-108) mmol/L Carbon Dioxide 28 (22-29) mmol/L Anion Gap 12 (12-20) BUN 13 (9-16) mg/dL Creatinine 0.80 (0.5-1.4) mg/dL Estim Creat Clear Calc 103.6 Estimated GFR > 60 POC Glucose (60-115) mg/dL Random Glucose 118 H (60-115) mg/dL Calcium 8.7 (8.4-10.2) mg/dL Magnesium (1.6-2.6) mg/dL Total Bilirubin 1.0 (0.0-1.0) mg/dL Direct Bilirubin (0.0-0.5) mg/dL AST 60 H (5-37) U/L ALT 56 H (0-40) U/L Alkaline Phosphatase 81 (39-117) U/L Ammonia (13-55) umol/L Total Creatine Kinase (38-174) U/L Total Protein 6.7 (6.5-8.0) g/dL Albumin 4.0 (3.5-5.0) g/dL TSH (0.32-4.0) uIU/mL Urine Color Yellow Urine Appearance Clear Urine pH 7.0 (5.0-9.0) Ur Specific [place] >= 1.030 H (1.005-1.025) Urine Protein Negative (Neg-Trace) mg/dL Urine Glucose (UA) Negative (Negative) mg/dL Urine Ketones Negative (Negative) mg/dL Urine Blood Negative (Negative) Urine Nitrite Negative (Negative) Ur Leukocyte Esterase Negative (Negative) Salicylates (15-30) mg/dL Urine Opiates Screen Not Detected (Not Detect) Urine Fentanyl Screen Not Detected (Not Detect) Acetaminophen (<30) mcg/mL Ur Barbiturates Screen Not Detected (Not Detect) Ur Phencyclidine Scrn Not Detected (Not Detect) Ur Amphetamines Screen Not Detected (Not Detect) U Benzodiazepines Scrn Not Detected (Not Detect) Urine Cocaine Screen Not Detected (Not Detect) U Marijuana (THC) Screen POSITIVE H (Not Detect) Ethyl Alcohol mg/dL 04/09/23 Range/Units 00:39 WBC (4.8-10.8) X10*3/uL RBC (4.60-5.80) X10*6/uL Hgb (14.0-18.0) g/dl Hct (42.0-52.0) % MCV (80.0-98.0) fL MCH (27.0-33.0) pg MCHC (31.0-36.0) g/dl RDW (11.0-16.0) % Plt Count (160-400) X10*3/uL MPV (9.4-12.4) fL Immature Gran % (Auto) (0.0-0.4) % Neut % (Auto) (45-73) % Lymph % (Auto) (20-40) % Esmeralda % (Auto) (2-11) % Eos % (Auto) (0-4) % Baso % (Auto) (0-2) % Lymph # (Auto) (1.2-4.9) X10*3/uL Esmeralda # (Auto) (0.1-1.2) X10*3/uL Eos # (Auto) (0.0-0.4) X10*3/uL Baso # (Auto) (0.0-0.2) X10*3/uL Abs Immat Gran (auto) (0.00-0.03) X10*3/uL Absolute Neuts (auto) (2.0-8.3) x10*3/uL Absolute Nucleated RBC (0.0-0.012) X10*3/uL Nucleated RBC % (auto) (0.0-0.2) /100WBC VBG pH (7.32-7.43) VBG pCO2 mmHg VBG pO2 mmHg VBG HCO3 (22-26) mmol/L VBG O2 Saturation % VBG Base Excess mmol/L Sodium (135-145) mmol/L Potassium (3.3-5.1) mmol/L Chloride (96-108) mmol/L Carbon Dioxide (22-29) mmol/L Anion Gap (12-20) BUN (9-16) mg/dL Creatinine (0.5-1.4) mg/dL Estim Creat Clear Calc Estimated GFR POC Glucose 128 H (60-115) mg/dL Random Glucose (60-115) mg/dL Calcium (8.4-10.2) mg/dL Magnesium (1.6-2.6) mg/dL Total Bilirubin (0.0-1.0) mg/dL Direct Bilirubin (0.0-0.5) mg/dL AST (5-37) U/L ALT (0-40) U/L Alkaline Phosphatase (39-117) U/L Ammonia (13-55) umol/L Total Creatine Kinase (38-174) U/L Total Protein (6.5-8.0) g/dL Albumin (3.5-5.0) g/dL TSH (0.32-4.0) uIU/mL Urine Color Urine Appearance Urine pH (5.0-9.0) Ur Specific [place] (1.005-1.025) Urine Protein (Neg-Trace) mg/dL Urine Glucose (UA) (Negative) mg/dL Urine Ketones (Negative) mg/dL Urine Blood (Negative) Urine Nitrite (Negative) Ur Leukocyte Esterase (Negative) Salicylates (15-30) mg/dL Urine Opiates Screen (Not Detect) Urine Fentanyl Screen (Not Detect) Acetaminophen (<30) mcg/mL Ur Barbiturates Screen (Not Detect) Ur Phencyclidine Scrn (Not Detect) Ur Amphetamines Screen (Not Detect) U Benzodiazepines Scrn (Not Detect) Urine Cocaine Screen (Not Detect) U Marijuana (THC) Screen (Not Detect) Ethyl Alcohol mg/dL <TU Casillas - Last Filed: 04/16/23 17:27> Independent Interpretation I performed an independent interpretation of an: CT Scan <TU Napoles - Last Filed: 04/08/23 16:28> Interpretation: No appreciated subdural hematoma, brain bleed on CT scan of the head. <TU Napoles Last Filed: 04/08/23 16:28> Radiology Impression Discussion of test interpretation with radiology: I have reviewed the radiologist's reading. <TU Napoles - Last Filed: 04/08/23 16:28> Radiologist Impression: ?CT/CT head/brain wo IV con IMPRESSION: No acute intracranial bleed or territorial infarction. No acute fractures of the calvarium or cervical spine. <TU Napoles Last Filed: 04/08/23 16:28> Independent Historian Clinical information obtained from an independent historian. History obtained from or confirmed by: EMS <TU Napoles - Last Filed: 04/08/23 16:28> External Record Review External record reviewed: Inpatient record, Office record, Outpatient record, Prior outpatient labs and Prior outpatient radiology <TU Napoles Last Filed: 04/08/23 16:28> Chronic Conditions Patient?s care impacted by: Diabetes and Other ( polysubstance abuse) <TU Napoles Last Filed: 04/08/23 16:28> Social Determinants Patient?s care significantly limited by Social Determinants of Health including: Alcoholism and drug addiction in family and Other Social Determinant of Health <TU Napoles Last Filed: 04/08/23 16:28> Critical Care Time Critical Care Time Critical Care Time: Yes <TU Napoles Last Filed: 04/08/23 16:28> Total Critical Care Time: 44 <TU Napoles - Last Filed: 04/08/23 16:28> Attestation: I have personally provided critical care time exclusive of time spent on separately billable procedures. Time includes review of lab data, radiology results, and monitoring for potential decompensation. Intervention performed as documented. <TU Napoles Last Filed: 04/08/23 16:28> Discharge Plan Discharge Clinical Impression: Closed rib fracture <TU Napoles Last Filed: 04/08/23 16:28> Patient Disposition: Home, Self-Care <TU Napoles - Last Filed: 04/08/23 16:28> Instructions: Rib Fracture (ED) <TU Napoles - Last Filed: 04/08/23 16:28> Additional Instructions: resendiz tomograf?a computarizada de t?rax muestra fracturas de costillas, la mayor?a de ellas son cr?nicas, pocas son agudas. la tomograf?a computarizada de la michel, la columna cervical y la tomograf?a computarizada abdominal son normales. Se le zeynep? de krystal con analg?sicos. Recomendar el uso de espirometr?a de incentivo cada hora para prevenir el colapso pulmonar. Regrese al servicio de urgencias inmediatamente si tose megan, le falta el aire, empeora el dolor de pecho, dolor de michel, mareos, sangrado rectal, v?mitos con megan, megan en la orina, dolor en las extremidades o cualquier otro s?ntoma preocupante. Por favor, hans un seguimiento con el proveedor de atenci?n primaria. <TU Napoles - Last Filed: 04/08/23 16:28> Prescriptions: New oxycodone 5 mg tablet 5 mg PO TID PRN (Reason: pain) 3 Days Qty: 9 0RF Rx Instructions: Partial Fill upon patient request. No Action carvedilol 6.25 mg Tablet 6.25 mg PO BID amlodipine 10 mg Tablet 10 mg PO DAILY metformin 500 mg tablet 500 mg PO BID 30 Days Qty: 60 0RF thiamine HCl (vitamin B1) 100 mg tablet 100 mg PO DAILY 30 Days Qty: 30 0RF (DME) blood-glucose meter [FreeStyle Lite Meter] Kit See Rx Instructions .ROUTE .MEDSUPPLY Qty: 1 0RF Rx Instructions: As directed (DME) FreeStyle Lite Strips Strip See Rx Instructions .ROUTE .MEDSUPPLY Qty: 10 0RF Rx Instructions: As directed (DME) lancets [FreeStyle Lancets] 28 gauge misc See Rx Instructions .ROUTE .MEDSUPPLY Qty: 100 0RF Rx Instructions: As directed quetiapine [Seroquel] 300 mg tablet 1 tab PO BEDTIME fluoxetine 20 mg capsule 2 cap PO DAILY amitriptyline 50 mg Tablet 100 mg PO BEDTIME Qty: 0 0RF divalproex 500 mg Tablet Extended Release 24 Hr 2,000 mg PO BEDTIME 30 Days Qty: 120 0RF clonazepam 1 mg tablet 1 tab PO TID PRN (Reason: Anxiety) 30 Days Qty: 90 0RF omeprazole 40 mg Capsule,Delayed Release(Dr/Ec) 40 mg PO BID 30 Days Qty: 60 0RF <TU Napoles - Last Filed: 04/08/23 16:28> Interventions: ED Discharge Assessment Last Done: 04/09/23 03:08 <TU Napoles - Last Filed: 04/08/23 16:28> Discharge Date/Time: 04/09/23 03:09 <TU Napoles - Last Filed: 04/08/23 16:28> Print Language: Ethiopian <TU Napoles - Last Filed: 04/08/23 16:28>
[2023-04-08 15:13] LABS: MANUAL DIFF FLAG NO
[2023-04-08 15:15] LABS: Basophils Absolute Auto 0.1 X10*3/uL (0.0-0.2); Basophils Percent Auto 0.7 % (0-2); Eosinophils Absolute Auto 0.1 X10*3/uL (0.0-0.4); Eosinophils Percent Auto 1.6 % (0-4); Hematocrit 37.6 % (42.0-52.0); Hemoglobin 13.1 g/dl (14.0-18.0); Imm Gran Abs Auto 0.03 X10*3/uL (0.00-0.03); Imm Gran Pct Auto 0.4 % (0.0-0.4); Lymphocytes Absolute Auto 2.1 X10*3/uL (1.2-4.9); Lymphocytes Percent Auto 29.6 % (20-40); Mean Corpuscular HGB Conc 34.8 g/dl (31.0-36.0); Mean Corpuscular Hemoglobin 32.9 pg (27.0-33.0); Mean Corpuscular Volume 94.5 fL (80.0-98.0); Mean Platelet Volume 9.4 fL (9.4-12.4); Monocytes Absolute Auto 0.7 X10*3/uL (0.1-1.2); Monocytes Percent Auto 9.8 % (2-11); Neutrophils Absolute Auto 4.1 x10*3/uL (2.0-8.3); Neutrophils Percent Auto 57.9 % (45-73); Platelet Count 205 X10*3/uL (160-400); Red Blood Count 3.98 X10*6/uL (4.60-5.80); Red Cell Distribution Width 11.7 % (11.0-16.0)
[2023-04-08 15:16] LABS: Venous Blood Gas Refer to POC result
[2023-04-08 15:17] LABS: VBG Base Excess 7.4 mmol/L; VBG HCO3 32 mmol/L (22-26); VBG pCO2 46 mmHg; VBG pH 7.45 (7.32-7.43); VBG pO2 87 mmHg
[2023-04-08] MEDS: Naloxone HCl 0.4 MG/ML VIAL IVPUSH (15:17)
[2023-04-08 15:31] LABS: Alanine Aminotransferase 56 U/L (0-40); Albumin Level 3.9 g/dL (3.5-5.0); Alkaline Phosphatase 82 U/L (39-117); Anion Gap 13 (12-20); Aspartate Amino Transferase 72 U/L (5-37); Bilirubin Direct 0.3 mg/dL (0.0-0.5); Blood Urea Nitrogen 19 mg/dL (9-16); Carbon Dioxide 27 mmol/L (22-29); Chloride 107 mmol/L (96-108); Creatinine Clr Calc Pharmacy 82.1; Estimated Glomerular Filt Rate > 60; Ethanol 165 mg/dL; Glucose Random 112 mg/dL (60-115); Magnesium 2.4 mg/dL (1.6-2.6); Potassium 2.6 mmol/L (3.3-5.1); Sodium 144 mmol/L (135-145); Total Protein 6.4 g/dL (6.5-8.0)
[2023-04-08] MEDS: iohexoL 350 MG/ML 100 ML INFUS..BTL IV (15:56)
--- NOTE | 2023-04-08 16:12 | ECG_ITS ---
Test Reason : CHEST PAIN Blood Pressure : / mmHG Vent. Rate : 092 BPM Atrial Rate : 092 BPM P-R Int : 162 ms QRS Dur : 092 ms QT Int : 372 ms P-R-T Axes : 058 015 021 degrees QTc Int : 460 ms Normal sinus rhythm Nonspecific T wave abnormality Abnormal ECG When compared with ECG of 06-FEB-2023 09:40, Nonspecific T wave abnormality now evident in Anterolateral leads Referred By: Saadia Doll Electronically Signed By:YVONNE MCLAUGHLIN
[2023-04-08 16:29] LABS: TSH reflex Free T4 1.34 uIU/mL (0.32-4.0)
[2023-04-08] MEDS: Potassium Chloride/H20 10 MEQ/100 ML PIGGYBACK 100 MEQ IV ×3 (16:51→19:23)
[2023-04-08] MEDS: Lactated Ringers 1,000 ML 999 ML IV (16:52)
[2023-04-08 17:51] LABS: Ammonia 39 umol/L (13-55)
[2023-04-08 18:09] LABS: Acetaminophen LAB < 17 mcg/mL (<30); Salicylate < 5.0 mg/dL (15-30)
[2023-04-08 19:25] VITALS: BP 126/81; PULSE 90; RESP 16; O2SAT 94
[2023-04-08] MEDS: Potassium Chloride Packet 20 MEQ PACKET 40 MEQ PO (20:49)
[2023-04-08] MEDS: Morphine Sulfate 2 MG/ML CARTRIDGE IVPUSH (20:49)
[2023-04-08] MEDS: 0.9 % Sodium Chloride 1,000 ML 999 ML IV (20:50)
[2023-04-08 20:59] LABS: Appearance Urine Clear; Color Urine Yellow; Glucose Urine UA Negative (Negative); Leukocyte Esterase Urine Negative (Negative); Nitrite Urine Negative (Negative); Specific Gravity - Urine >= 1.030 (1.005-1.025); Urine Blood Negative (Negative); Urine Ketones Negative (Negative); Urine Protein Negative (Neg-Trace)
[2023-04-08 21:12] LABS: Amphetamine Screen Urine Not Detected (Not Detect); Barbiturates, Urine Not Detected (Not Detect); Benzodiazepines Screen Urine Not Detected (Not Detect); Cannabinoid Screen Urine POSITIVE (Not Detect); Cocaine Screen Urine Not Detected (Not Detect); Fentanyl, urine Not Detected (Not Detect); Opiate Screen Urine Not Detected (Not Detect); Phencyclidine Screen Urine Not Detected (Not Detect)
[2023-04-08 21:34] VITALS: BP 142/77; PULSE 88; RESP 18; O2SAT 94
[2023-04-08 22:08] LABS: Glucose, Whole Blood 120 mg/dL (60-115)
[2023-04-08 22:59] LABS: Alanine Aminotransferase 56 U/L (0-40); Alkaline Phosphatase 81 U/L (39-117); Anion Gap 12 (12-20); Aspartate Amino Transferase 60 U/L (5-37); Blood Urea Nitrogen 13 mg/dL (9-16); Calcium 8.7 mg/dL (8.4-10.2); Carbon Dioxide 28 mmol/L (22-29); Chloride 107 mmol/L (96-108); Creatinine Clr Calc Pharmacy 103.6; Estimated Glomerular Filt Rate > 60; Glucose Random 118 mg/dL (60-115); Potassium 3.6 mmol/L (3.3-5.1); Sodium 143 mmol/L (135-145); Total Protein 6.7 g/dL (6.5-8.0)
[2023-04-09 00:13] VITALS: BP 135/83; PULSE 96; RESP 17; TEMP 37.1; O2SAT 95
[2023-04-09] MEDS: Morphine Sulfate 4 MG/ML CARTRIDGE IVPUSH (00:15)
[2023-04-09] MEDS: oxyCODONE HCl Immed Release 5 MG TABLET PO (02:41)
--- NOTE | 2023-04-09 03:07 | PC.NURSE ---
patient ambulatory in room, using urinal at bedside at time of discharge . no apparent distress.
[2023-04-09 03:10] LABS: Glucose, Whole Blood 128 mg/dL (60-115)
== END 2023-04-09 03:09 | disposition home or self-care (01) ==
PROVIDERS: Physician Assistant; Emergency Provider Emergency Medicine
DX: S22.32XA Fracture of one rib, left side, initial encounter for closed fracture (principal); R51.9 Headache, unspecified; M54.2 Cervicalgia; M54.50 Low back pain, unspecified; M54.6 Pain in thoracic spine; R07.89 Other chest pain; F10.129 Alcohol abuse with intoxication, unspecified; Y90.6 Blood alcohol level of 120-199 mg/100 ml; W01.0XXA Fall on same level from slipping, tripping and stumbling without subsequent striking against object, initial encounter; Y93.9 Activity, unspecified; Y92.9 Unspecified place or not applicable; Y99.9 Unspecified external cause status; Z79.899 Other long term (current) drug therapy
CPT/HCPCS: 36415; 70450; 71260; 72125; 74177; 80048; 80053; 80076; 80143; 80179; 80307; 81003; 82140; 82550; 82803; 82947; 83735; 84443; 85025; 93005; 96361; 96365; 96366; 96375; 96376; 99284; 99285; J2270; Q9967

== ENCOUNTER → 2024-08-06 13:59 | Outpatient (RCR) | payer MEDICAID, SELFPAY ==
[2021-03-29 14:13] VITALS: BP 106/60; PULSE 104; RESP 12; TEMP 36.4; O2SAT 96
--- NOTE | 2021-03-29 14:28 | PM.HEMONCCN ---
Subjective - Subjective Chief complaint: CONSULT FOR: ANEMIA. Patient: known to practice within the last 3 years Consult date: 03/29/21 Primary Care Provider: Yamilet Marie MD Medical Summary: THE DIAGNOSIS: ANEMIA. HPI - Consult Narrative Reason for consult: Consult for: Anemia. Narrative: Mario Patiño is a 60 year old gentleman who was in house recently. He is Turkish-speaking, presented to the hospital with a chief complaint of confusion. Patient is a poor historian. Spoke with the ER staff, patient's family and also reviewed the records. Reportedly patient had confusion-refers to memory impairment as per the family; and has been having unsteady gait, dizzy evening while he was walking he was leaning on to the family member but did not have any fall. Patient also had nausea vomiting and diarrhea. Patient mentioned that he has pain all over his body. Hospital course: Encephalopathy versus psychiatric decompensation: Brain CT was unremarkable. He was evaluated by the neurologist who felt that his clinical picture was more suggestive of psychosomatic issue. Brain CT was unremarkable. LP showed no signs of meningitis. He has completed empiric treatment for Wernicke's with IV thaimine, and has been switched to PO thiamine given reported EtOH hx @ [facility]. NH3, B12, HIV, T pallidum EIA negative. He was seen by CARE team and does not need inpatient level of care. Per his [facility] aircraft skin burnisher over the last 3- 4 years his health and memory have deteriorated significantly. The patient is also a [facility] client and has a [facility] worker and recently had services increased. He will be discharged back to [facility] apartment with A service. He will be followed by his [facility] case sealer. Anemia. His H/H was noted to trend down and anemia workup was done. Patient was evaluated by Hematology. Initially thought to be related to hemolytic anemia and was started on prednisone. However haptoglobin returned to normal. Prednisone was discontinued. His H/H drifted down further and he required blood transfusion. H/H has remained stable. Bone marrow biopsy was completed 03/23. This revealed: Hypercellular erythroid dominant marrow with maturing trilineage hematopoiesis. No dysplasia or marrow infiltrative process is seen. Increased iron stores raise the possibility of anemia of chronic disease. Other considerations include drug/medication and possibly infection. Patient's hepatitis-C diagnosis is noted. Studies:G6PD; 5, SPEP/RADHA: . Past medical history: hypertension, GERD, anxiety, depression. DM2 (though denies prior hx), HTN, HLD, polysubstance use, schizophrenia recent admission to [facility] with AMS from [facility] 03/09-03/13/21 presented to with confusion. ROS: He tells he does not feel too well. He feels rather fatigued. He complains of dizziness. Occasional headaches. He wakes up shaking. He denies chest pain or trouble breathing. Denies abdominal pain nausea vomiting heartburn indigestion. Bowels are working without any gross blood in it. His appetite is good. Weight is stable. Denies urinary complaints. Review of Systems - Constitutional Reports no additional constitutional complaints, Reports lack of energy, Reports malaise - Eyes Reports no additional eye complaints - ENT Reports no additional ear, nose, mouth, and throat complaints - Cardiovascular Reports no additional cardiovascular complaints - Respiratory Reports no additional respiratory complaints - Gastrointestinal Reports no additional gastrointestinal complaints - Genitourinary Genitourinary: Reports no additional male genitourinary complaints - Musculoskeletal Reports no additional musculoskeletal complaints - Integumentary/Breasts Skin/Breast: Reports no additional skin complaints - Neurologic Reports no additional neurologic complaints - Psychiatric Reports no additional psychiatric complaints - Endocrine Reports no additional endocrine complaints - Hematologic/Lymphatic Reports no additional hematologic/lymphatic complaints - Allergic/Immunologic Reports no additional allergic/immunologic complaints Oncology Screenings - ECOG Performance Status ECOG Performance Status: 0 [facility] Medical History: Medical History (Last Updated 03/23/21 @ 15:57 by TU Garcia) Diabetes Hyperkalemia Hypertension Schizo affective schizophrenia Substance abuse Functional capacity: independent ambulation Patient : No Social History: Social History (Last Updated 03/29/21 @ 14:18 by Joya Fajardo) Living Situation History: Household Members: None Housing: Apartment Alcohol History: Alcohol intake: former Alcohol History Details: Alcohol intake frequency: does not drink Tobacco History: Smoking Status: Former smoker Smoking Quit Date: 2000 Substance Use History: Use of substances other than those prescribed or required for medical reasons: Yes Substance Use Type: Marijuana Occupation Assessmet: service: No Current occupational status: unemployed Smoking status: Former smoker Home Medications and Allergies Home Medications Medication Instructions Recorded Confirmed Type amitriptyline 100 mg PO BEDTIME 03/15/21 03/29/21 History amlodipine 10 mg PO DAILY 03/15/21 03/29/21 History carvedilol 6.25 mg PO BID 03/15/21 03/29/21 History clonazepam 1 mg PO TID 03/15/21 03/29/21 History fluoxetine 20 mg PO DAILY 03/15/21 03/29/21 History omeprazole 40 mg PO BID 03/15/21 03/29/21 History Allergies Allergy/AdvReac Type Severity Reaction Status Date / Time fish derived [FISH] Allergy Unknown UNKNOWN Unverified 08/18/20 18:30 turkey [TURKEY] Allergy Unknown UNK Unverified 08/18/20 18:30 lisinopril AdvReac Swelling Verified 03/16/21 01:39 Physical Exam Vital signs: Vital Signs Temp 97.5 F 03/29/21 14:13 Pulse 104 H 03/29/21 14:13 Resp 12 03/29/21 14:13 BP 106/60 03/29/21 14:13 Pulse Ox 96 03/29/21 14:13 Intake & Output 03/28/21 03/29/21 03/29/21 18:59 06:59 18:59 Other: Weight 87.1 kg [place] Weight in Grams 25418 Weight 87.1 kg - Constitutional Present: mild distress - Routine HEENT Exam Head: Present: normal inspection ENT: Present: mucous membranes moist - Routine Neck Exam Present: supple - Routine Respiratory Exam Present: CTAB - Routine Cardiovascular Exam Cardiovascular: Present: RRR, S1, S2 - Routine Abdominal Exam Present: soft, nontender - Routine Extremities Exam Present: nontender - Routine Skin Exam Present: intact - Routine Neurological Exam Present: alert, oriented X3 - Detailed Neurological Exam: Coma Scale Eye Opening: Spontaneous (4) Verbal Response: Oriented (5) Motor Response: Obeys commands (6) Bruno Coma Scale Total: 15 - Routine Psychiatric Exam Present: agitated, anxious Hem/Onc Consult Result - Labs CBC & Chem 7: 03/29/21 14:50 03/29/21 14:50 Assessment and Plan (1) Anemia Status: Acute This is a 60-year-old gentleman with a history of normochromic normocytic anemia. He was recently in house. serial hemoglobin: 9 0.4/8.3/7.7/7.5/7.3/ 6.8/7.8/8.1 on 03/23. He did require blood transfusion. He had an extensive evaluation for anemia. Iron studies revealed: 67/to 57/20 05/1209. Hemolytic profile: LDH 291. Haptoglobin 105. B12 folate levels: 585. 10.5. D-dimer 6187. Fibrinogen 604. He had a bone marrow exam done on 03/23 which revealed; This revealed: Hypercellular erythroid dominant marrow with maturing trilineage hematopoiesis. No dysplasia or marrow infiltrative process is seen. Increased iron stores raise the possibility of anemia of chronic disease. Other considerations include drug/medication and possibly infection. Patient's hepatitis-C diagnosis is noted. Studies:G6PD; 5, SPEP/RADHA: ?monoclonal spike. Most likely has ACD. He does have underlying liver disease. He appears to be doing better. PLAN: His blood count today has improved. I will complete the workup by checking an SIEP. Will follow his blood count over time. He will return in 1 month for a follow-up. He will call if he gets fatigued prior to that time. Thanks, CC: Johnnie.
[2021-03-29 14:52] LABS: MANUAL DIFF FLAG NO
[2021-03-29 14:57] LABS: Basophils Percent Auto 0.3 % (0-2); Eosinophils Absolute Auto 0.2 X10*3/uL (0.0-0.4); Eosinophils Percent Auto 2.8 % (0-4); Hematocrit 31.6 % (42-52); Imm Gran Abs Auto 0.07 X10*3/uL (0.00-0.03); Lymphocytes Absolute Auto 1.3 X10*3/uL (1.2-4.9); Lymphocytes Percent Auto 18.1 % (20-40); Mean Corpuscular HGB Conc 31.6 g/dl (31.0-36.0); Mean Corpuscular Hemoglobin 32.6 pg (27.0-33.0); Mean Corpuscular Volume 102.9 fL (80-98); Mean Platelet Volume 8.7 fL (9.4-12.4); Monocytes Absolute Auto 0.7 X10*3/uL (0.1-1.2); Monocytes Percent Auto 10.7 % (2-11); Neutrophils Absolute Auto 4.6 X10*3/uL (2.0-8.3); Neutrophils Percent Auto 67.1 % (45-73); Platelet Count 277 X10*3/uL (160-400); Red Blood Count 3.07 X10*6/uL (4.60-5.80); Red Cell Distribution Width 15.9 % (11.0-16.0); White Blood Count 6.9 X10*3/uL (4.8-10.8)
--- NOTE | 2021-03-29 15:03 | MHC.HEMONCMA ---
Patient came in for a consult for anemia today, states that he is not doing well and seems agitated. Sharlene was in the room for interpretation. Clinical summary was reviewed and updated. Patient had labs and will return in 6 months for a follow up.
[2021-03-29 15:17] LABS: Alanine Aminotransferase 17 U/L (0-40); Albumin Level 3.8 g/dL (3.5-5.0); Alkaline Phosphatase 94 U/L (39-117); Anion Gap 11 (12-20); Aspartate Amino Transferase 16 U/L (5-37); Bilirubin Total 0.4 mg/dL (0.0-1.0); Blood Urea Nitrogen 13 mg/dL (9-16); Carbon Dioxide 27 mmol/L (22-29); Chloride 104 mmol/L (96-108); Estimated Glomerular Filt Rate > 60; Glucose Random 111 mg/dL (60-115); Potassium 4.1 mmol/L (3.3-5.1); Sodium 138 mmol/L (135-145); Total Protein 6.5 g/dL (6.5-8.0)
[2021-03-30 15:57] LABS: IgA 198 mg/dL (70-320); IgG 1186 mg/dL (600-1540); IgM 48 mg/dL (50-300)
[2021-04-28 13:12] VITALS: BP 120/71; PULSE 82; RESP 12; TEMP 36.3; O2SAT 95; BMI 29.6
--- NOTE | 2021-04-28 13:28 | P.PNHO_ITS ---
Medical Summary - Medical Summary Date of Service: 04/28/21 Chief complaint: F/U for ACD. Medical Summary: THE DIAGNOSIS: ANEMIA. ACD. Interval History Interval history: Mario Patiño is a 60 year old gentleman here for a follow up. He tells me he feels, regular. He does feel somewhat tired. He complains of dizziness. Occasional headaches. He wakes up shaking. He denies chest pain. He does get trouble breathing. He has asthma. Sometimes he gets abdominal pain, no nausea vomiting heartburn indigestion. Bowels are working without any gross blood in it. His appetite is good. Weight is stable. Denies urinary complaints. He is in good spirits. Rest of the review of systems is unremarkable. Previous History: He was in house recently. He is Irish-speaking, presented to the hospital with a chief complaint of confusion. Patient is a poor historian. Spoke with the ER staff, patient's family and also reviewed the records. Reportedly patient had confusion-refers to memory impairment as per the family; and has been having unsteady gait, dizzy evening while he was walking he was leaning on to the family member but did not have any fall. Patient also had nausea vomiting and diarrhea. Patient mentioned that he has pain all over his body. Hospital course: Encephalopathy versus psychiatric decompensation: Brain CT was unremarkable. He was evaluated by the neurologist who felt that his clinical picture was more suggestive of psychosomatic issue. Brain CT was unremarkable. LP showed no signs of meningitis. He has completed empiric treatment for Wernicke's with IV thaimine, and has been switched to PO thiamine given reported EtOH hx @ [facility]. NH3, B12, HIV, T pallidum EIA negative. He was seen by CARE team and does not need inpatient level of care. Per his [facility] metalizer over the last 3- 4 years his health and memory have deteriorated significantly. The patient is also a [facility] client and has a [facility] worker and recently had services increased. He will be discharged back to [facility] apartment with [facility] service. He will be followed by his [facility] caseworker. Anemia. His H/H was noted to trend down and anemia workup was done. Patient was evaluated by Hematology. Initially thought to be related to hemolytic anemia and was started on prednisone. However haptoglobin returned to normal. Prednisone was discontinued. His H/H drifted down further and he required blood transfusion. H/H has remained stable. Bone marrow biopsy was completed 03/23. This revealed: Hypercellular erythroid dominant marrow with maturing trilineage hematopoiesis. No dysplasia or marrow infiltrative process is seen. Increased iron stores raise the possibility of anemia of chronic disease. Other considerations include drug/medication and possibly infection. Patient's hepatitis-C diagnosis is noted. Studies:G6PD; 5, SPEP/RADHA: . Past medical history: hypertension, GERD, anxiety, depression. DM2 (though denies prior hx), HTN, HLD, polysubstance use, schizophrenia recent admission to [facility] with AMS from [facility] 03/09-03/13/21 presented to with confusion. Review of Systems - Constitutional Reports no additional constitutional complaints, Reports lack of energy - Eyes Reports no additional eye complaints - ENT Reports no additional ear, nose, mouth, and throat complaints - Cardiovascular Reports no additional cardiovascular complaints - Respiratory Reports no additional respiratory complaints - Gastrointestinal Reports no additional gastrointestinal complaints - Genitourinary Genitourinary: Reports no additional male genitourinary complaints - Musculoskeletal Reports no additional musculoskeletal complaints - Integumentary/Breasts Skin/Breast: Reports no additional skin complaints - Neurologic Reports no additional neurologic complaints - Psychiatric Reports no additional psychiatric complaints - Endocrine Reports no additional endocrine complaints - Hematologic/Lymphatic Reports no additional hematologic/lymphatic complaints - Allergic/Immunologic Reports no additional allergic/immunologic complaints [facility] Medical History: Medical History (Last Updated 03/23/21 @ 15:57 by TU Garcia) Diabetes Hyperkalemia Hypertension Schizo affective schizophrenia Substance abuse Functional capacity: independent ambulation Patient : No Social History: Social History (Last Updated 03/29/21 @ 14:18 by Joya Fajardo) Living Situation History: Household Members: None Housing: Apartment Do you presently have visiting nurse or other home services: No Alcohol History: Alcohol intake: former Alcohol History Details: Alcohol intake frequency: does not drink Substance Use History: Use of substances other than those prescribed or required for medical reasons : Yes Substance Use Type: Marijuana Nutrition Assessment: Patient : No Occupation Assessmet: service: No Current occupational status: unemployed Oncology Screenings - ECOG Performance Status ECOG Performance Status: 0 Home Medications and Allergies Home Medications Medication Instructions Recorded Confirmed Type amitriptyline 100 mg PO BEDTIME 03/15/21 03/29/21 History amlodipine 10 mg PO DAILY 03/15/21 03/29/21 History carvedilol 6.25 mg PO BID 03/15/21 03/29/21 History clonazepam 1 mg PO TID 03/15/21 03/29/21 History fluoxetine 20 mg PO DAILY 03/15/21 03/29/21 History omeprazole 40 mg PO BID 03/15/21 03/29/21 History Allergies Allergy/AdvReac Type Severity Reaction Status Date / Time fish derived [FISH] Allergy Unknown UNKNOWN Unverified 08/18/20 18:30 turkey [TURKEY] Allergy Unknown UNK Unverified 08/18/20 18:30 lisinopril AdvReac Swelling Verified 03/16/21 01:39 Exam Vital signs: Vital Signs Temp 97.4 F 04/28/21 13:12 Pulse 82 04/28/21 13:12 Resp 12 04/28/21 13:12 BP 120/71 04/28/21 13:12 Pulse Ox 95 04/28/21 13:12 Intake & Output 04/27/21 04/28/21 04/28/21 18:59 06:59 18:59 Other: Weight 85.8 kg [place] Weight in Grams 87323 Weight 85.8 kg Body Mass Index 29.6 - Constitutional Present: mild distress - Routine HEENT Exam Head: Present: normal inspection Eye: Present: normal appearance ENT: Present: mucous membranes moist - Routine Neck Exam Present: full ROM - Routine Respiratory Exam Present: CTAB - Routine Cardiovascular Exam Cardiovascular: Present: RRR, S1, S2 - Routine Abdominal Exam Present: soft, nontender - Routine Extremities Exam Present: nontender - Routine Back/Spine/Pelvis Exam Back/Spine: Present: full ROM - Routine Skin Exam Present: intact - Routine Neurological Exam Present: alert, oriented X3 - Detailed Neurological Exam: Coma Scale Eye Opening: Spontaneous (4) - Routine Psychiatric Exam Present: normal affect Data - Labs CBC & Chem 7: 04/28/21 13:43 04/28/21 13:43 Labs: 03/29/21 14:50 Complete Blood Count Auto Diff Routine Comprehensive Met. Panel Routine Immunofixation Pnl, Serum Routine Laboratory Last Values WBC 6.9 X10*3/uL (4.8-10.8) 03/29/21 14:50 RBC 3.07 X10*6/uL (4.60-5.80) L D 03/29/21 14:50 Hgb 10.0 g/dl (14.0-18.0) L D 03/29/21 14:50 Hct 31.6 % (42-52) L D 03/29/21 14:50 MCV 102.9 fL (80-98) H 03/29/21 14:50 MCH 32.6 pg (27.0-33.0) 03/29/21 14:50 MCHC 31.6 g/dl (31.0-36.0) 03/29/21 14:50 RDW 15.9 % (11.0-16.0) 03/29/21 14:50 Plt Count 277 X10*3/uL (160-400) 03/29/21 14:50 MPV 8.7 fL (9.4-12.4) L 03/29/21 14:50 Immature Gran % (Auto) 1.0 % (0.0-0.4) H 03/29/21 14:50 Neut % (Auto) 67.1 % (45-73) 03/29/21 14:50 Lymph % (Auto) 18.1 % (20-40) L 03/29/21 14:50 [place] % (Auto) 10.7 % (2-11) 03/29/21 14:50 Eos % (Auto) 2.8 % (0-4) 03/29/21 14:50 Baso % (Auto) 0.3 % (0-2) 03/29/21 14:50 Lymph # (Auto) 1.3 X10*3/uL (1.2-4.9) 03/29/21 14:50 [place] # (Auto) 0.7 X10*3/uL (0.1-1.2) 03/29/21 14:50 Eos # (Auto) 0.2 X10*3/uL (0.0-0.4) 03/29/21 14:50 Baso # (Auto) 0.0 X10*3/uL (0.0-0.2) 03/29/21 14:50 Abs Immat Gran (auto) 0.07 X10*3/uL (0.00-0.03) H 03/29/21 14:50 Absolute Neuts (auto) 4.6 X10*3/uL (2.0-8.3) 03/29/21 14:50 Absolute Nucleated RBC 0.000 X10*3/uL (0.0-0.012) 03/29/21 14:50 Nucleated RBC % (auto) 0.0 /100WBC (0.0-0.2) 03/29/21 14:50 Sodium 138 mmol/L (135-145) 03/29/21 14:50 Potassium 4.1 mmol/L (3.3-5.1) D 03/29/21 14:50 Chloride 104 mmol/L (96-108) 03/29/21 14:50 Carbon Dioxide 27 mmol/L (22-29) 03/29/21 14:50 Anion Gap 11 (12-20) L 03/29/21 14:50 BUN 13 mg/dL (9-16) 03/29/21 14:50 Creatinine 0.86 mg/dL (0.5-1.4) 03/29/21 14:50 Estim Creat Clear Calc 95.0 03/29/21 14:50 Estimated GFR > 60 03/29/21 14:50 Random Glucose 111 mg/dL (60-115) 03/29/21 14:50 Calcium 9.0 mg/dL (8.4-10.2) 03/29/21 14:50 Total Bilirubin 0.4 mg/dL (0.0-1.0) 03/29/21 14:50 AST 16 U/L (5-37) 03/29/21 14:50 ALT 17 U/L (0-40) 03/29/21 14:50 Alkaline Phosphatase 94 U/L (39-117) 03/29/21 14:50 Total Protein 6.5 g/dL (6.5-8.0) 03/29/21 14:50 Albumin 3.8 g/dL (3.5-5.0) 03/29/21 14:50 IgG Total 1186 mg/dL (600-1540) 03/29/21 14:50 IgA Total 198 mg/dL (70-320) 03/29/21 14:50 IgM 48 mg/dL (50-300) L 03/29/21 14:50 RADHA Interpretation SEE NOTE 03/29/21 14:50 Progress Note: A/P (1) Anemia Status: Acute Assessment and plan: This is a 60-year-old gentleman with a history of normochromic normocytic anemia. He was recently in house. serial hemoglobin: 9 0.4/8.3/7.7/7.5/7.3/ 6.8/7.8/8.1 on 03/23. He did require blood transfusion. He had an extensive evaluation for anemia. Iron studies revealed: 67/to 57/20 05/1209. Hemolytic profile: LDH 291. Haptoglobin 105. B12 folate levels: 585. 10.5. D-dimer 6187. Fibrinogen 604. He had a bone marrow exam done on 03/23 which revealed; This revealed: Hypercellular erythroid dominant marrow with maturing trilineage hematopoiesis. No dysplasia or marrow infiltrative process is seen. Increased iron stores raise the possibility of anemia of chronic disease. Other considerations include drug/medication and possibly infection. Patient's hepatitis-C diagnosis is noted. Studies:G6PD; 5, SPEP/RADHA: ?monoclonal spike. I checked an SIEP: IgG kappa monoclonal protein. Most likely has ACD. He does have underlying liver disease. He appears to be doing better. PLAN: His blood count has improved even further today. Will follow his blood count over time. Will also monitor his SIEP. He will return in 6 month for a follow-up. He will call if he gets fatigued prior to that time. Thanks, CC: [place]. - Time Spent With Patient Total time spent is greater than 50% in coordination of care (as documented) at patient's floor/unit and/or counseling patient: 25 - 35 minutes
[2021-04-28 13:45] LABS: MANUAL DIFF FLAG NO
[2021-04-28 13:50] LABS: Basophils Absolute Auto 0.1 X10*3/uL (0.0-0.2); Basophils Percent Auto 0.6 % (0-2); Imm Gran Abs Auto 0.08 X10*3/uL (0.00-0.03); Imm Gran Pct Auto 0.5 % (0.0-0.4); Mean Platelet Volume 8.9 fL (9.4-12.4); Neutrophils Percent Auto 61.2 % (45-73); Platelet Count 357 X10*3/uL (160-400)
[2021-04-28 13:57] LABS: Eosinophils Absolute Auto 2.2 X10*3/uL (0.0-0.4); Eosinophils Percent Auto 14.9 % (0-4); Hematocrit 38.9 % (42-52); Hemoglobin 12.9 g/dl (14.0-18.0); Lymphocytes Absolute Auto 2.4 X10*3/uL (1.2-4.9); Mean Corpuscular HGB Conc 33.2 g/dl (31.0-36.0); Mean Corpuscular Hemoglobin 31.3 pg (27.0-33.0); Mean Corpuscular Volume 94.4 fL (80-98); Monocytes Percent Auto 6.8 % (2-11); Neutrophils Absolute Auto 9.1 X10*3/uL (2.0-8.3); Red Blood Count 4.12 X10*6/uL (4.60-5.80); Red Cell Distribution Width 13.6 % (11.0-16.0)
[2021-04-28 14:11] LABS: White Blood Count 14.8 X10*3/uL (4.8-10.8)
[2021-04-28 14:14] LABS: Alanine Aminotransferase 10 U/L (0-40); Albumin Level 4.3 g/dL (3.5-5.0); Alkaline Phosphatase 127 U/L (39-117); Anion Gap 12 (12-20); Aspartate Amino Transferase 12 U/L (5-37); Bilirubin Total 0.3 mg/dL (0.0-1.0); Blood Urea Nitrogen 13 mg/dL (9-16); Calcium 9.6 mg/dL (8.4-10.2); Carbon Dioxide 28 mmol/L (22-29); Chloride 102 mmol/L (96-108); Creatinine Clr Calc Pharmacy 94.3; Estimated Glomerular Filt Rate > 60; Glucose Random 84 mg/dL (60-115); Sodium 138 mmol/L (135-145); Total Protein 7.8 g/dL (6.5-8.0)
== END | disposition home or self-care (01) ==
LOC: HO.ONC 03-29 13:38
PROVIDERS: PCP Student in an Organized Health Care Education/Training Program; Visit Provider Internal Medicine Medical Oncology
DX: D64.9 Anemia, unspecified (principal)
CPT/HCPCS: 36415; 80053; 82784; 85025; 86334; 99204; 99214